=== PATIENT | female | born 1960 | race Caucasian/White ===

== ENCOUNTER → 2017-05-24 08:30 | Outpatient (CLI) | payer MEDICARE, SELFPAY ==
[2017-05-24 12:35] LABS: Cholesterol 191 mg/dL (200); High Density Lipoprotein 50 mg/dL; Triglycerides 166 mg/dL; Very Low Density Lipoprotein 33 mg/dL (5-40)
[2017-05-30 12:08] LABS: Testosterone, % Free 4.41 % (0.50-2.80); Testosterone, Free 3.18 ng/dL (0.10-0.85); Testosterone, Total 72 ng/dL (3-41)
[2017-05-30 16:24] LABS: DHEA Sulfate 271.8 ug/dL (29.4-220.5)
== END ==
PROVIDERS: Family Provider Family Medicine; PCP Family Medicine; Visit Provider Family Medicine
DX: D35.02 Benign neoplasm of left adrenal gland (principal); I25.10 Atherosclerotic heart disease of native coronary artery without angina pectoris
CPT/HCPCS: 36415; 80061; 82627; 84402; 84403; 82626

== ENCOUNTER → 2017-06-19 12:48 | Outpatient (CLI) | payer MEDICARE, SELFPAY ==
--- NOTE | 2017-06-19 12:55 | RAD_ITS ---
STUDY: X-RAY - RIGHT KNEE REASON FOR EXAM: Female, 56 years old. Pain. TECHNIQUE: 4 view(s) of the knee. COMPARISON: 12/30/2008. FINDINGS: Normal visualized distal femur. Normal visualized proximal tibia and fibula. Normal proximal tibiofibular articulation. There is no demonstrated fracture. Normal medial femorotibial compartment. Normal lateral femorotibial compartment. Normal patellofemoral articulation. There is no demonstrated joint effusion. The soft tissue structures are unremarkable. RAD/Knee 4 or More Views IMPRESSION: Normal x-ray examination of the knee. Electronically Signed: Abelardo Bustamante MD at 17:34 EDT , Service support ,
== END ==
LOC: MTRAD 12:51
PROVIDERS: Family Provider Family Medicine; PCP Family Medicine; Visit Provider Family Medicine
DX: M25.561 Pain in right knee (principal)
CPT/HCPCS: 73564

== ENCOUNTER → 2017-08-31 11:24 | Outpatient (CLI) | payer MEDICARE, SELFPAY ==
[2017-08-31 15:59] LABS: Cholesterol 231 mg/dL (200); High Density Lipoprotein 51 mg/dL; Triglycerides 239 mg/dL; Very Low Density Lipoprotein 48 mg/dL (5-40)
[2017-09-04 16:09] LABS: Testosterone, Free 1.24 ng/dL (0.10-0.85); Testosterone, Total 69 ng/dL (3-41)
[2017-09-05 08:30] LABS: DHEA Sulfate 339.5 ug/dL (29.4-220.5)
== END ==
LOC: LAB.FUTURE 11:25
PROVIDERS: Family Provider Family Medicine; PCP Family Medicine; Visit Provider Family Medicine
DX: D35.02 Benign neoplasm of left adrenal gland (principal); I25.10 Atherosclerotic heart disease of native coronary artery without angina pectoris
CPT/HCPCS: 36415; 80061; 82627; 84402; 84403; 82626

== ENCOUNTER → 2018-07-24 11:10 | Outpatient (CLI) | payer MEDICARE, SELFPAY ==
[2018-07-24 12:45] LABS: Absolute Lymphocyte Count 2.87 X10^3/ul (0.83-4.51); Absolute Neutrophil Count 6.3 X10^3/uL (2.0-7.7); Basophil# 0.05 X10^3/uL; Basophil% 0.5 % (0-1); Eosinophil# 0.14 X10^3/uL; Eosinophils% 1.4 % (0-5); Hematocrit 43.3 % (37-47); Hemoglobin 14.5 g/dl (12.0-15.0); Lymphocyte # 2.87 X10^3/ul (4.0); Lymphocyte % 28.7 % (19-41); Mean Corp Hgb Conc 33.5 g/gl (32-36); Mean Corpuscular Hgb 29.8 pg (27.0-32.0); Mean Corpuscular Volume 89.1 fL (81-99); Mean Platelet Vol. 10.2 fl (6.2-12.0); Monocyte# 0.61 X10^3/uL; Monocyte% 6.1 % (0-10); Neutrophil # 6.29 X10^3/uL (2.7-7.7); Platelet Count 257 K/mm3 (150-450); RBC Distribution Width SD 42.2 fl (35.1-43.9); Red Blood Count 4.86 M/mm3 (4.2-5.4)
[2018-07-24 12:47] LABS: POSITIVE COUNT NO; POSITIVE DIFFERENTIAL NO; POSITIVE MORPHOLOGY NO
[2018-07-24 13:07] LABS: ALB/GLOB Ratio 0.8 RATIO (0.9-2.4); AST(SGOT) 13 U/L (15-37); Alanine Aminotransfer ALT/SGPT 17 U/L (13-56); Albumin, Serum 3.2 g/dL (3.2-5.0); Alkaline Phosphatase 88 U/L (45-117); Anion Gap 6 (5-15); BUN 10 mg/dL (7-18); Calcium,Total 8.8 mg/dL (8.5-10.1); Chloride 102 mmol/L (98-107); Cholesterol 188 mg/dL (200); EST Glomerular Filtration Rate 61 mL/min (>60); Est Glom Filt Rate - Afr Amer 74 mL/min (>60); Globulin 3.9 g/dL (2.2-4.2); Glucose 83 mg/dL (74-106); High Density Lipoprotein 48 mg/dL; Potassium 3.6 mmol/L (3.5-5.1); Protein, Total 7.1 g/dL (6.4-8.2); Sodium Level 140 mmol/L (136-145); Triglycerides 210 mg/dL; Very Low Density Lipoprotein 42 mg/dL (5-40)
[2018-07-28 16:06] LABS: Testosterone, % Free 3.06 % (0.50-2.80); Testosterone, Free 0.86 ng/dL (0.10-0.85); Testosterone, Total 28 ng/dL (3-41)
[2018-07-30 11:26] LABS: DHEA Sulfate 162.1 ug/dL (29.4-220.5)
== END ==
PROVIDERS: Family Provider Family Medicine; PCP Family Medicine; Visit Provider Family Medicine
DX: I10 Essential (primary) hypertension (principal); E78.5 Hyperlipidemia, unspecified; L68.0 Hirsutism; Z51.81 Encounter for therapeutic drug level monitoring
CPT/HCPCS: 36415; 80053; 80061; 82627; 84402; 84403; 85025; 82626

== ENCOUNTER → 2018-09-06 17:45 | Outpatient (CLI) | payer MEDICARE, SELFPAY ==
--- NOTE | 2018-09-06 17:46 | CT_ITS ---
STUDY: CT CHEST WITH CONTRAST REASON FOR EXAM: Female, 57 years old. Wheezing, COPD RADIATION DOSAGE (If Supplied By Facility): CTDIvol = ( 18.17 ) mGy, DLP = ( 708.23 ) mGycm TECHNIQUE: Transaxial imaging was performed following intravenous administration of 100 IV Isovue 300. Individualized dose optimization techniques were used for this CT. COMPARISON: None. FINDINGS: The lungs are normal. There is no demonstrated pleural abnormality. Normal heart and pericardium. Normal mediastinum. Normal hilar regions. Normal enhanced pulmonary arteries. Mildly calcified aorta arch and descending thoracic aorta. Degenerative vertebral changes. There is no demonstrated abnormality of the visualized upper abdomen. CT/Chest WITH Contrast IMPRESSION: Normal enhanced CT Chest examination. Electronically Signed: Mp Toure DO at 23:34 EDT Tel [phone], Service support ,
== END ==
LOC: CT 17:47
PROVIDERS: Family Provider Family Medicine; PCP Family Medicine; Referring Provider Family Medicine; Visit Provider Family Medicine
DX: R06.09 Other forms of dyspnea (principal); R06.2 Wheezing; Z72.0 Tobacco use
CPT/HCPCS: 71260; Q9967

== ENCOUNTER → 2018-10-04 07:19 | Outpatient (CLI) | payer MEDICARE, SELFPAY ==
--- NOTE | 2018-10-04 13:12 | PFT ---
INTRODUCTION: The patient is a 58-year-old female that presents for pulmonary function studies secondary to a diagnosis of COPD. Respiratory therapy reports good patient effort. Bronchodilators were used during testing. INTERPRETATION: Forced expiration spirometry demonstrates the presence of a reversible mild large airways obstructive ventilatory defect. Spirograms are of good quality and plateau normally. Body plethysmography was performed and reveals lung volumes to be within normal limits. Diffusing capacity by single breath CO is mildly reduced at 68% of predicted. IMPRESSION: Reversible mild large airways obstructive ventilatory defect with symmetric reduction in diffusing capacity.
== END ==
LOC: PSN 07:20
PROVIDERS: Family Provider Family Medicine; PCP Family Medicine; Referring Provider Family Medicine; Visit Provider Family Medicine
DX: J44.9 Chronic obstructive pulmonary disease, unspecified (principal); R06.2 Wheezing; R06.09 Other forms of dyspnea
CPT/HCPCS: 94060; 94726; 94729

== ENCOUNTER → 2019-03-15 15:15 | Outpatient (CLI) | payer MEDICARE, SELFPAY ==
[2019-03-15 17:07] LABS: Absolute Lymphocyte Count 3.86 X10^3/uL (0.83-4.51); Absolute Neutrophil Count 5.3 X10^3/uL (2.0-7.7); Basophil# 0.09 X10^3/uL; Basophil% 0.9 % (0-1); Eosinophil# 0.17 X10^3/uL; Eosinophils% 1.7 % (0-5); Hematocrit 45.9 % (37-47); Hemoglobin 15.1 g/dL (12.0-15.0); Lymphocyte # 3.86 X10^3/ul (4.0); Lymphocyte % 37.9 % (19-41); Mean Corp Hgb Conc 32.9 g/dL (32-36); Mean Corpuscular Hgb 29.7 pg (27.0-32.0); Mean Corpuscular Volume 90.2 fL (81-99); Mean Platelet Vol. 10.5 fl (6.2-12.0); Monocyte# 0.74 X10^3/uL; Monocyte% 7.3 % (0-10); NRBC Flagged by Analyzer 0 % (0-5); Neutrophil % 51.9 % (47-70); Platelet Count 262 K/mm3 (150-450); RBC Distribution Width CV 13.2 % (11.6-14.6); RBC Distribution Width SD 43.5 fl (35.1-43.9); Red Blood Count 5.09 M/mm3 (4.2-5.4); White Blood Count 10.2 K/mm3 (4.4-11.0)
[2019-03-15 17:14] LABS: Anion Gap -1 (5-15); BUN 9 mg/dL (7-18); BUN/Creat Ratio 8.7 RATIO (10-20); Calcium,Total 9.2 mg/dL (8.5-10.1); Chloride 105 mmol/L (98-107); Creatinine, Serum 1.04 mg/dL (0.55-1.02); EST Glomerular Filtration Rate 58 mL/min (>60); Est Glom Filt Rate - Afr Amer 70 mL/min (>60); Glucose 77 mg/dL (74-106); Potassium 4.2 mmol/L (3.5-5.1); Sodium Level 139 mmol/L (136-145)
== END ==
PROVIDERS: PCP Family Medicine; Visit Provider Family Medicine
DX: K62.5 Hemorrhage of anus and rectum (principal); I10 Essential (primary) hypertension
CPT/HCPCS: 36415; 80048; 85025

== ENCOUNTER 2019-04-15 08:44 | Day surgery (SDC) | payer MEDICARE, SELFPAY ==
--- NOTE | 2019-03-25 03:06 | HP_ITS ---
Intake Vital Signs 03/25/19 BMI 38.9 03/25/19 Height 5 ft 6 in 03/25/19 Weight: 237 lb 03/25/19 BMI 38.2 03/25/19 BP 127/90 H 03/25/19 Blood Pressure Location Rt brachial 03/25/19 Position Sitting 03/25/19 Respiration 18 03/25/19 Pulse 88 03/25/19 Pulse Source Monitor 03/25/19 Temp 98.3 F 03/25/19 Temp Source Oral 03/25/19 Pulse Oximetry (%) 95 03/25/19 Oxygen Delivery Method room air Intake Visit Reasons: COLONOSCOPY/ CHANGE IN BOWEL MOVEMENTS Chief Complaint: rectal bleeding [employer] Required: No Is patient in pain?: No Allergies No Known Allergies Allergy (Verified 03/25/19 15:04) steristrips Adverse Reaction (Intermediate, Uncoded 03/25/19 15:04) blisters [facility] Medical History Family history of coronary artery disease (Chronic) Obesity (Chronic) Nicotine addiction (Chronic) Hyperlipidemia (Chronic) Hypertension (Chronic) Non-ST elevation [place] (NSTEMI) (Acute) Major depression (Chronic) Arthritis (Acute) Depression with anxiety (Acute) GERD (gastroesophageal reflux disease) (Acute) Heart disease (Acute) Hemorrhoids (Acute) History of back problems (Acute) Rectal bleeding (Acute) COPD (chronic obstructive pulmonary disease) (Chronic) Surgical History h/o lap cholecystectomy (Acute) h/o appendectomy (Acute) H/O: hysterectomy (Acute) History of total adrenalectomy (Acute) Family History Mother Diabetes Heart disease Hypertension Father Cancer bladder cancer CAD (coronary artery disease) High cholesterol Social History (Updated 03/25/19 @ 15:06 by Benito Lee MD) Smoking Status: Current every day smoker alcohol intake: current alcohol intake frequency: holidays/special occasions only substance use type: does not use HPI HPI HPI: JAROCHO KELLY, is a 58 F who presents to the office today for HPI HPI Surgical H&P: Yes HPI: JAROCHO KELLY, is a 58 F who presents to the office today for Evaluation for endoscopy. Patient has been noticing some bright red rectal bleeding over the last month. She has noticed an increase in her bowel movements between 2 and 3 times a day and the usually will start off normal and then get to be very liquidy and runny. She is not experiencing any pain with her bowel movements. Patient has never had a colonoscopy for in the past. She has a history of having a hemorrhoid which has not been painful or itching or burning as today. ROS General General: Yes weight change and fatigue; no appetite, colon cancer, breast cancer or weakness HEENT HEENT: No difficulty swallowing, eye injury, eye surgery, swollen glands or hoarseness Endo Endocrine: No thyroid disease, diabetes mellitus, thyroid cancer, Hair loss, heat intolerance or cold intolerance Skin Skin: No rash or changing moles Breast Breast: No left breast lump, right breast lump, nipple discharge, breast pain, abnormal mammogram, abnormal US or breast enlargement Musc Musculoskeletal: Yes back problems and arthritis; no rheumatoid arthritis, gout or joint pain Cardio Cardiovascular: Yes heart disease, high blood pressure and heart attack; no murmur, pacemaker, atrial fibrillation, heart stent, palpitations, shortness of breat with exertion or chest pain Psych Psychiatric: Yes depression and anxiety; no hearing voices Resp Respiratory: Yes shortness of breath, No sleep apnea, No cough, Yes COPD, No asthma, No emphysema, No wheezing Gastro Gastrointestinal: No abdominal pain, Yes nausea or vomiting, Yes diarrhea, Yes constipation, Yes blood in stool, Yes acid reflux, Yes hemorrhoids, No ulcers, No gallbladder problem, No black,tarry stools [place] Hematologic: Yes blood thinners, No blood disorders, No bleeding, No anemia, No blood clots Neuro Neurologic: No system reviewed and no additional complaints, except as docu, No as per HPI, No abnormal walking, No abnormal hearing, No abnormal movements, No abnormal speech, No behavioral changes, No burning sensations, No confusion, No seizure-like activity, No unsteadiness, No dizziness, No localized weakness, No frequent falls, No headache(s), No lack of coordination, No loss of vision, No memory loss, No numbness, No other visual disturbances, No radiating pain, No restless legs, No sensory deficit, No fainting, No tingling, No tremor(s), No weakness, No other Exam Const General: no acute distress, well developed, well hydrated Orientation: oriented to person, oriented to place, oriented to time [facility] Head: normocephalic, atraumatic Ears: external ears normal Mouth: moist mucous membranes Eyes Sclera: sclerae normal Pupils: normal by confrontation Neck Neck: no lymphadenopathy noted Neck mass: No Thyroid: thyroid normal, symmetrical Chest Chest palpation & inspection: normal inspection of the chest Breast Palpation: No nipple discharge Resp Effort & Inspection: normal respiratory effort Auscultation: clear to auscultation bilaterally Percussion: percussion normal Cardio Rate: regular rate Rhythm: regular rhythm Heart Sounds: no murmurs GI Palpation: soft, no hepatosplenomegaly, no masses, nontender Rectal Exam: other Other: Rectal exam deferred. Skin around the anus is slightly excoriated but there are no signs of rectal fissures or thrombosed external hemorrhoids. Extrem General: normal to inspection, no clubbing, cyanosis or edema Assessment & Plan Problems 1. Rectal hemorrhage K62.5 Plan I have discussed the above with the patient. I have offered the patient colonoscopy for evaluation. I have explained the risks/benefits of the procedure and described the procedure. I have discussed the risks with the patient, including but not limited to: infection, bleeding, perforation of the GI tract requiring emergency surgery, inability to complete the procedure, injury to any internal organs, complications of anesthesia, etc. - the patient understands and agrees to proceed. I have answered all the patient's questions to the patient's satisfaction and the patient has no further questions. The patient has been given instructions for the colon cleansing preparation. Coding Level of Care Code Off vis,new,level 3 Diagnoses Rectal hemorrhage K62.5 03/25/19 1506 <Electronically signed by Benito monzon MD> Date _ Benito Lee MD I have re-examined the patient. There are no clinical changes since date of exam.
[2019-03-25 15:06] VITALS: BMI 38.9
[2019-04-15 09:06] VITALS: BP 152/87; PULSE 82; RESP 15; TEMP 36.2; O2SAT 97; BMI 38.4
[2019-04-15] MEDS: Lactated Ringers 1,000 ML 100 ML IV (09:19)
--- NOTE | 2019-04-15 09:45 | COLBX_PTH ---
PATIENT: JAROCHO KELLY LOC: [facility] U#:[id number] AGE/SX: 58/F ROOM: RE04/15/[address]: Dr. Benito Lee MD : 1960 BED: DIS: 04/15/2019 SPEC #: [id number] RECD: 04/15/19 11:58 STATUS: CHASITY RERay #: [id number] MIREYA: 04/15/19 09:[address]: Benito Lee DEPT: SURGICAL PATHOLOGY RECD BY: Zac Delcid ENTERED: 04/15/19 13:57 SP TYPE: COLON BX OTHR DR: Dr. Jamie Milner DO Tissues: A - COLON BIOPSY B - Descending colon C - Descending colon Procedures: Surgery Specimen Level IV HEADER OPERATION: Colonoscopy (MAC) PRE-OP DIAGNOSIS: Rectal bleeding TISSUE SUBMITTED: A - Random colon biopsies, B - Descending colon polyp biopsy #1, C - Descending colon polyp biopsy #2 MICROSCOPIC DIAGNOSIS A. Colon, random biopsy: No pathologic change. B. Descending colon polyp #1, biopsy: Fragments of tubular adenoma. C. Descending colon polyp #2, biopsy: Fragments of tubular adenoma. AM:martha 04/16/19 MICROSCOPIC DESCRIPTION Slides are reviewed. GROSS DESCRIPTION A - Received in fixative is one container labeled with the patient's name and designated random colon biopsy. The specimen consists of multiple irregular fragments of light caputo soft tissue that in aggregate measure 1.2 x 1 x 0.1 cm. The specimen is totally submitted in one cassette. B - Received in fixative is one container labeled with the patient's name and designated descending colon biopsy. The specimen consists of one irregular fragment of light caputo soft tissue that measures 0.3 x 0.2 x 0.1 cm. The specimen is totally submitted in one cassette. C - Received in fixative is one container labeled with the patient's name and designated descending colon biopsy. The specimen consists of two irregular fragments of light caputo soft tissue that in aggregate measure 0.3 x 0.3 x 0.1 cm. The specimen is totally submitted in one cassette. / AM:martha 04/15/19 TC:5 CPT: 15798 x3
[2019-04-15 10:21] VITALS: BP 123/70; BP 152/87; PULSE 72; RESP 16; TEMP 36.9; O2SAT 98
--- NOTE | 2019-04-15 10:22 | OP.CCLET_ITS ---
04/15/2019 Jamie Milner [address] [place] [address] Re : Colonoscopy procedure for Caterina Curry Dear Dr. Milner This procedure was performed on Monday, April 15, 2019. My impressions and recommendations are as follows: Impressions : - One 5 mm polyp in the descending colon, removed with a jumbo cold forceps. Resected and retrieved. - Non-bleeding internal hemorrhoids. - The examination was otherwise normal. - The entire examined colon is normal. Biopsied. Recommendations : - Discharge patient to home. - Resume previous diet. - Continue present medications. - Await pathology results. - Repeat colonoscopy in 5 years for surveillance. - Return to GI office in 1 week. My findings are described in the full procedure note, which is enclosed. If I can be of further assistance, please feel free to contact me at Doctor phone number(s): , Fax: [phone], Work: . Sincerely, MD Benito Lopez MD 04/15/2019 10:22:15 AM This report has been signed electronically.
--- NOTE | 2019-04-15 10:22 | OP.COLON_ITS ---
Patient Name: Caterina Curry Procedure Date: 04/15/2019 9:56 AM Date of : 1960 Age: 58 Procedure: Colonoscopy Indications: Rectal bleeding Providers: Benito Lee MD Referring MD: Jamie Milner Medicines: See the Anesthesia note for documentation of the administered medications Patient Profile: This is a 58 year old female. Refer to note in patient chart for documentation of history and physical. Last Colonoscopy: none. The patient's first colonoscopy is today. Complications: No immediate complications. Procedure: Pre-Anesthesia Assessment: - Prior to the procedure, a History and Physical was performed, and patient medications and allergies were reviewed. The patient's tolerance of previous anesthesia was also reviewed. The risks and benefits of the procedure and the sedation options and risks were discussed with the patient. All questions were answered, and informed consent was obtained. Prior Anticoagulants: The patient has taken no previous anticoagulant or antiplatelet agents. ASA Grade Assessment: II - A patient with mild systemic disease. After reviewing the risks and benefits, the patient was deemed in satisfactory condition to undergo the procedure. After I obtained informed consent, the scope was passed under direct vision. Throughout the procedure, the patient's blood pressure, pulse, and oxygen saturations were monitored continuously. The adult colonoscope was introduced through the anus and advanced to the cecum, identified by appendiceal orifice and ileocecal valve. The colonoscopy was performed without difficulty. The patient tolerated the procedure well. The quality of the bowel preparation was good. Scope In: 10:04:56 AM Scope Withdrawal Time 0 hours 7 minutes 19 seconds Scope Out: 10:17:01 AM Total Procedure Duration Time 0 hours 12 minutes 5 seconds Findings: A 5 mm polyp was found in the descending colon. The polyp was sessile. The polyp was removed with a jumbo cold forceps. Resection and retrieval were complete. Non-bleeding internal hemorrhoids were found during retroflexion. The hemorrhoids were mild and small. The exam was otherwise without abnormality. The entire examined colon appeared normal. Biopsies for histology were taken with a cold forceps from the entire colon for evaluation of microscopic colitis. Impression: - One 5 mm polyp in the descending colon, removed with a jumbo cold forceps. Resected and retrieved. - Non-bleeding internal hemorrhoids. - The examination was otherwise normal. - The entire examined colon is normal. Biopsied. Recommendation: - Discharge patient to home. - Resume previous diet. - Continue present medications. - Await pathology results. - Repeat colonoscopy in 5 years for surveillance. - Return to GI office in 1 week. Procedure Code(s): --- Professional --- 57034, Colonoscopy, flexible; with biopsy, single or multiple Diagnosis Code(s): --- Professional --- D12.4, Benign neoplasm of descending colon K64.8, Other hemorrhoids K62.5, Hemorrhage of anus and rectum CPT copyright 2017 [employer] [place] [employer]. All rights reserved. The codes documented in this report are preliminary and upon tile grader review may be revised to meet current compliance requirements. MD Benito Lopez MD 04/15/2019 10:22:15 AM This report has been signed electronically. Number of Addenda: 0 Note Initiated On: 04/15/2019 9:56 AM
[2019-04-15 10:25] VITALS: BP 125/75; BP 152/87; PULSE 75; RESP 16; O2SAT 97
[2019-04-15 10:30] VITALS: BP 122/81; BP 152/87; PULSE 75; RESP 16; O2SAT 96
[2019-04-15 10:35] VITALS: BP 128/73; BP 152/87; PULSE 71; RESP 16; TEMP 36.3; O2SAT 97
[2019-04-15 11:12] VITALS: BP 152/87
== END 2019-04-15 11:13 | disposition home or self-care (01) ==
LOC: EN 08:44 → AC 08:46
PROVIDERS: PCP Family Medicine; Referring Provider Family Medicine; Visit Provider Surgery
PROC: 0DJD8ZZ Inspection of Lower Intestinal Tract, Via Natural or Artificial Opening Endoscopic (ICD-10-PCS; CPT 45378; principal; 2019-04-15 09:40)
DX: D12.4 Benign neoplasm of descending colon (principal); K64.8 Other hemorrhoids; K62.5 Hemorrhage of anus and rectum; K21.9 Gastro-esophageal reflux disease without esophagitis; I25.2 Old myocardial infarction; I10 Essential (primary) hypertension; J44.9 Chronic obstructive pulmonary disease, unspecified; E78.00 Pure hypercholesterolemia, unspecified; F32.9 Major depressive disorder, single episode, unspecified; F41.9 Anxiety disorder, unspecified; E66.9 Obesity, unspecified; Z68.38 Body mass index [BMI] 38.0-38.9, adult; F17.200 Nicotine dependence, unspecified, uncomplicated
CPT/HCPCS: 45380; 88305; J7120; J1610; J2405

== ENCOUNTER 2019-12-26 11:28 | Emergency (ER) | payer MEDICARE, SELFPAY ==
[2019-12-26 11:29] VITALS: BP 140/73; PULSE 106; RESP 19; TEMP 36.3; O2SAT 99; BMI 36.8
--- NOTE | 2019-12-26 11:40 | RAD_ITS ---
STUDY: X-RAY CHEST REASON FOR EXAM: Female, 59 years old. C/O COUGH, SOB, NAUSEA, CHEST WALL PAIN, HEADACHE, AND BODY ACHES WITH SYMPTOMS STARTING LAST NIGHT TECHNIQUE: Single AP portable view of the chest. COMPARISON: 10/11/2016 FINDINGS: The lungs are clear and expanded. There is no demonstrated pleural abnormality. Normal size heart. Normal mediastinum and javy. Normal visualized pulmonary arteries. Normal visualized aortic arch and descending thoracic aorta. Normal visualized thoracic spine. Normal visualized ribs, clavicles, and shoulders. There is no demonstrated abnormality of the visualized soft tissue structures of the upper abdomen. RAD/Chest 1 View (Portable) IMPRESSION: Normal x-ray examination of the chest. Electronically Signed: Burt Carreon MD at 12:19 EST Tel , Service support ,
--- NOTE | 2019-12-26 11:43 | ED.DCSUM_ITS ---
- ER Visit Summary Date of Service: 12/26/19 Chief Complaint: [Cough and fever and shortness of breath] History of Present Illness: The patient is a 59 F [presents to the emergency department with symptoms that started 2 days ago. Patient states that she had a temp up to 102 last night. Patient had chills and sweats. She complains of headache and body aches. Cough is nonproductive. She denies any abdominal pain. Patient does have urinary frequency but denies dysuria. Patient denies exposures to any COVID-19 individuals.] Patient has history of diabetes, hypertension, depression, and coronary artery disease. She did not get the flu vaccine yet this year. Physical Examination: [HEENT-PERRLA, EOMI. Cranial nerves II through XII grossly intact. TMs clear. Mucous membranes moist. No adenopathy. Cardiovascular-regular rate and rhythm without murmur or ectopy Lungs-clear to auscultation, chest wall stable without crepitus or subcu emphysema Abdomen-normoactive bowel sounds, soft, nontender, no rebound or rigidity, no peritoneal signs. Extremities-intact ?4, normal range of motion, normal pulses, atraumatic] Test Results: [CBC with differential obtained showed a white count of 15.8, hemoglobin 13.9, hematocrit 42, plates 159. Demonstrates unremarkable. BUN 17 and creatinine 1.55. Urinalysis was positive for 500 excite esterase and positive for nitrites. Patient had greater than 100 WBCs and +4 bacteria. Urine culture was sent. Chest x-ray was normal. COVID-19 test ordered and will be pending as it is a send out.] Emergency Department Course and Treatment: [Patient was started on Rocephin 1 g IV. Patient was given normal saline.] Treatment Plan: [We will be treated with Bactrim and Pyridium. She is advised to follow-up with vomiting, dehydration, increasing shortness of breath, or condition should worsen anyway. Patient self quarantine till she gets her COVID-19 test results back.] Disposition: [Discharged home in stable condition] Impression: [UTI Viral URI-rule out COVID-19] This note was generated with Studio [employer] software. It may contain incorrect words, spelling, and punctuation that were not noted in review of the chart prior to signing ED Disposition - Plan for ED Patient: Referrals: Jamie Milner DO [Primary Care Provider] -
[2019-12-26 11:56] VITALS: BP 159/63; PULSE 102; RESP 24; O2SAT 96
[2019-12-26 12:03] VITALS: BP 168/62; PULSE 99; RESP 24; TEMP 36.3; O2SAT 96
[2019-12-26] MEDS: 0.9% Normal Saline 1,000 ML 150 ML IV (12:05)
[2019-12-26 12:06] LABS: Absolute Lymphocyte Count 0.79 X10^3/uL (0.83-4.51); Basophil# 0.05 X10^3/uL; Basophil% 0.3 % (0-1); Eosinophil# 0.49 X10^3/uL; Eosinophils% 3.1 % (0-5); Hematocrit 41.6 % (37-47); Hemoglobin 13.9 g/dL (12.0-15.0); Lymphocyte # 0.79 X10^3/ul (4.0); Mean Corp Hgb Conc 33.4 g/dL (32-36); Mean Corpuscular Hgb 30.4 pg (27.0-32.0); Mean Platelet Vol. 10.6 fl (6.2-12.0); Monocyte# 1.33 X10^3/uL; Monocyte% 8.4 % (0-10); NRBC Flagged by Analyzer 0 % (0-5); Neutrophil # 13.01 X10^3/uL (2.7-7.7); Neutrophil % 82.3 % (47-70); Platelet Count 159 K/mm3 (150-450); RBC Distribution Width CV 13.6 % (11.6-14.6); RBC Distribution Width SD 45.8 fl (35.1-43.9); Red Blood Count 4.57 M/mm3 (4.2-5.4); White Blood Count 15.8 K/mm3 (4.4-11.0)
[2019-12-26 12:20] LABS: Anion Gap 4 (5-15); BUN 17 mg/dL (7-18); Chloride 100 mmol/L (98-107); Creatinine, Serum 1.55 mg/dL (0.55-1.02); EST Glomerular Filtration Rate 37 mL/min (>60); Est Glom Filt Rate - Afr Amer 44 mL/min (>60); Estimated Creatinine Clearance 37.04 ml/min; Glucose 124 mg/dL (74-106); Potassium 3.5 mmol/L (3.5-5.1); Sodium Level 134 mmol/L (136-145)
[2019-12-26 12:29] LABS: Mucous, Urine 0 SEEN /hpf (<or=2+)
[2019-12-26 12:36] LABS: Color, Urine Amber (Yellow); Glucose, Dipstick Normal (Normal); Ketone-Dipstick 15 mg/dl (Negative); Leukocyte Esterase-Dipstick 500 /ul (Negative); Nitrite-Dipstick Positive (Negative); Occult Blood-Urine 250 /ul (Negative); Protein-Dipstick 100 mg/dl (Negative); Specific Gravity, Urine 1.015 (1.002-1.030); Urine Clarity Cloudy (Clear); Urine Urobilinogen 4 mg/dl (Normal)
[2019-12-26 12:38] LABS: Urine Bilirubin Dipstick 1 mg/dL (Negative)
[2019-12-26 12:45] LABS: White Blood Cells >100 SEEN /hpf (0-5)
[2019-12-26 12:46] LABS: Bacteria 4+ /hpf (None Seen); Red Blood Cells-Urine 0-5 SEEN /hpf (0-5); Squamous Epithelial Cells - UA 0-5 SEEN /hpf (5-10)
[2019-12-26 13:00] VITALS: BP 162/70; PULSE 91; RESP 16; TEMP 38.3; O2SAT 97
--- NOTE | 2019-12-26 13:26 | ED.DEP ---
ED Disposition - Plan for ED Patient: Instructions: ED URI Viral, ED CYSTITIS Female Adult Prescriptions: Smz/Tmp Ds [Bactrim Ds] 1 tab PO BID #14 tab Prescription Printed Phenazopyridine HCl [Pyridium] 200 mg PO BID PRN PRN #10 tab PRN Reason: Pain Prescription Printed Referrals: Jamie Milner DO [Primary Care Provider] - 3-5 Days
[2019-12-26] MEDS: Ceftriaxone 1 GM/50 ML BAG IV (13:37)
[2019-12-26] MEDS: Acetaminophen 500 MG Tablet 1000 MG PO (14:05)
[2019-12-26 14:46] VITALS: BP 155/68; PULSE 88; PULSE 90; RESP 17; RESP 20; TEMP 37.7; O2SAT 97
== END 2019-12-26 14:50 | disposition home or self-care (01) ==
LOC: ED 12:27
PROVIDERS: Emergency Provider Emergency Medicine; PCP Family Medicine
DX: N39.0 Urinary tract infection, site not specified (principal); J06.9 Acute upper respiratory infection, unspecified; I25.10 Atherosclerotic heart disease of native coronary artery without angina pectoris; I10 Essential (primary) hypertension; E11.9 Type 2 diabetes mellitus without complications; F32.9 Major depressive disorder, single episode, unspecified; Z72.0 Tobacco use; Z79.82 Long term (current) use of aspirin; Z79.899 Other long term (current) drug therapy; Z79.02 Long term (current) use of antithrombotics/antiplatelets
CPT/HCPCS: 71045; 80048; 81001; 85025; 87086; 87088; 87186; 87635; 87804; 96365; 99283; U0003

== ENCOUNTER → 2020-04-14 14:56 | Outpatient (CLI) | payer OTHER, SELFPAY ==
[2020-04-14 17:01] LABS: Absolute Lymphocyte Count 3.47 X10^3/uL (0.83-4.51); Absolute Neutrophil Count 4.8 X10^3/uL (2.0-7.7); Basophil# 0.09 X10^3/uL; Eosinophil# 0.16 X10^3/uL; Eosinophils% 1.7 % (0-5); Hematocrit 42.7 % (37-47); Hemoglobin 13.8 g/dL (12.0-15.0); Lymphocyte # 3.47 X10^3/ul (4.0); Lymphocyte % 37.8 % (19-41); Mean Corp Hgb Conc 32.3 g/dL (32-36); Mean Corpuscular Hgb 29.7 pg (27.0-32.0); Mean Platelet Vol. 10.2 fl (6.2-12.0); Monocyte# 0.65 X10^3/uL; Monocyte% 7.1 % (0-10); NRBC Flagged by Analyzer 0 % (0-5); Neutrophil % 52.2 % (47-70); Platelet Count 274 K/mm3 (150-450); RBC Distribution Width CV 13.9 % (11.6-14.6); RBC Distribution Width SD 47.2 fl (35.1-43.9); Red Blood Count 4.64 M/mm3 (4.2-5.4); White Blood Count 9.2 K/mm3 (4.4-11.0)
[2020-04-14 17:21] LABS: ALB/GLOB Ratio 0.9 RATIO (0.9-2.4); AST(SGOT) 19 U/L (15-37); Alanine Aminotransfer ALT/SGPT 29 U/L (13-56); Albumin, Serum 3.7 g/dL (3.2-5.0); Alkaline Phosphatase 90 U/L (45-117); Anion Gap 6 (5-15); BUN 15 mg/dL (7-18); BUN/Creat Ratio 12.2 RATIO (10-20); Calcium,Total 9.4 mg/dL (8.5-10.1); Chloride 103 mmol/L (98-107); Creatinine, Serum 1.23 mg/dL (0.55-1.02); EST Glomerular Filtration Rate 48 mL/min (>60); Est Glom Filt Rate - Afr Amer 58 mL/min (>60); Globulin 3.9 g/dL (2.2-4.2); Glucose 68 mg/dL (74-106); Potassium 3.9 mmol/L (3.5-5.1); Protein, Total 7.6 g/dL (6.4-8.2); Sodium Level 140 mmol/L (136-145); T4 Free Direct 1.01 ng/dL (0.76-1.46); Thyroid Stim Hormone (TSH) 1.63 uIU/mL (0.358-3.74)
[2020-04-19 03:01] LABS: Banana <0.10 kU/L (Class 0); Celery <0.10 kU/L (Class 0); Cheddar Cheese <0.10 kU/L (Class 0); Lettuce <0.10 kU/L (Class 0); Peach <0.10 kU/L (Class 0)
[2020-04-19 07:42] LABS: Lactalbumin, Alpha <0.10 kU/L (Class 0); Turkey <0.10 kU/L (Class 0)
[2020-04-19 09:36] LABS: Almond <0.10 kU/L (Class 0); Barley, Whole Grain <0.10 kU/L (Class 0); Beef <0.10 kU/L (Class 0); Carrot <0.10 kU/L (Class 0); Casein <0.10 kU/L (Class 0); Cashew <0.10 kU/L (Class 0); Chicken <0.10 kU/L (Class 0); Chocolate <0.10 kU/L (Class 0); Clam <0.10 kU/L (Class 0); Codfish <0.10 kU/L (Class 0); Corn <0.10 kU/L (Class 0); Crab <0.10 kU/L (Class 0); Egg, White <0.10 kU/L (Class 0); Egg, Whole <0.10 kU/L (Class 0); Egg, Yolk <0.10 kU/L (Class 0); Garlic <0.10 kU/L (Class 0); Gluten <0.10 kU/L (Class 0); Hazelnut/Filbert <0.10 kU/L (Class 0); Lobster <0.10 kU/L (Class 0); Milk (Cow) <0.10 kU/L (Class 0); Oat <0.10 kU/L (Class 0); Onion <0.10 kU/L (Class 0); Orange <0.10 kU/L (Class 0); Pea <0.10 kU/L (Class 0); Pecan <0.10 kU/L (Class 0); Pork <0.10 kU/L (Class 0); Potato, White <0.10 kU/L (Class 0); Rice <0.10 kU/L (Class 0); Rye <0.10 kU/L (Class 0); Salmon <0.10 kU/L (Class 0); Shrimp <0.10 kU/L (Class 0); Soybean <0.10 kU/L (Class 0); Strawberry <0.10 kU/L (Class 0); Tomato <0.10 kU/L (Class 0); Tuna <0.10 kU/L (Class 0); Walnut, (Food) <0.10 kU/L (Class 0); Wheat <0.10 kU/L (Class 0); Yeast <0.10 kU/L (Class 0)
[2020-04-20 12:09] LABS: Apple <0.10 kU/L (Class 0); Peanut <0.10 kU/L (Class 0)
== END ==
PROVIDERS: PCP Family Medicine; Visit Provider Family Medicine
DX: L50.9 Urticaria, unspecified (principal); R53.83 Other fatigue
CPT/HCPCS: 36415; 80053; 84439; 84443; 85025; 86003

== ENCOUNTER → 2021-06-25 | Outpatient (CLI) | payer OTHER, SELFPAY | END | disposition home or self-care (01) | PROVIDERS: PCP Family Medicine; Visit Provider Family Medicine | DX: R39.15 Urgency of urination (principal) | CPT/HCPCS: 87077; 87086; 87088 ==

== ENCOUNTER 2021-08-05 07:26 | Emergency (ER) | payer MEDICARE, SELFPAY ==
[2021-08-05] VITALS (7 sets, daily range): BP systolic 130–162; BP diastolic 68–103; PULSE 80–102; RESP 16–20; TEMP 36.6–36.7; O2SAT 93–98; BMI 38.7
--- NOTE | 2021-08-05 07:48 | RAD_ITS ---
STUDY: X-RAY CHEST REASON FOR EXAM: Female, 60 years old. Chest pain TECHNIQUE: Single AP portable view of the chest. COMPARISON: Comparison is made with prior study dated 12/26/2019. FINDINGS: EKG electrodes are seen. The lungs are clear and expanded. There is no demonstrated pleural abnormality. Normal size heart. Normal mediastinum and javy. Normal visualized pulmonary arteries. There is atherosclerotic calcification of the aortic arch with tortuosity. There are diffuse degenerative changes of the visualized thoracic spine. Normal visualized ribs, clavicles, and shoulders. There is no demonstrated abnormality of the visualized soft tissue structures of the upper abdomen. RAD/Chest 1 View (Portable) IMPRESSION: No acute abnormality is seen. Electronically Signed: Sher Morales MD at 8:25 EDT ,
--- NOTE | 2021-08-05 07:48 | EKG12_ITS ---
Test Reason : CHEST HEAVINESS Blood Pressure : / mmHG Vent. Rate : 087 BPM Atrial Rate : 087 BPM P-R Int : 190 ms QRS Dur : 086 ms QT Int : 350 ms P-R-T Axes : 067 049 070 degrees QTc Int : 421 ms Normal sinus rhythm Normal ECG Confirmed by STALIN MARKHAM, JERZY ([id number]), writer editor RAJWINDER LIMA ([id number]) on 08/10/2021 10:19:30 AM Referred By: VIKI Confirmed By:JERZY GANT MD
--- NOTE | 2021-08-05 07:50 | EX.ED.DYSGE1 ---
HPI History of Present Illness Chief Complaint: General Illness Informant: patient Onset/Context/Timing Onset: Days (2) Associated Symptoms Associated Symptoms ED: cough Narrative Narrative: 60-year-old female presents with 2 days of generalized weakness/fatigue, chills but no fevers, chest heaviness substernal without radiation, and a little more shortness of breath than usual because I have been smoking a lot more than usual. She denies any cough more than usual. Poor appetite. No abdominal pain, some occasional nausea but no vomiting, diarrhea, bright red blood per rectum, melena. No urinary symptoms. No leg swelling or pain. Some myalgias more in her back. States she recently had a family member and then she had custody of her granddaughter who was recently reclaimed by her daughter and that is making her stressed as well. She does have a history of heart disease and is on aspirin and clopidogrel. [facility] Medical History (Updated 08/05/21 @ 10:[address] Osmin Santoro MD) Arthritis COPD (chronic obstructive pulmonary disease) Depression with anxiety Family history of coronary artery disease GERD (gastroesophageal reflux disease) Heart disease Hemorrhoids History of back problems Hyperlipidemia Hypertension Major depression Nicotine addiction Non-ST elevation LA (NSTEMI) Obesity Rectal bleeding Home Medications bupropion HCl 200 mg tablet,12 hr sustained-release 200 mg PO BID 11/06/15 [History Last Taken 11/06/15] docusate sodium 50 mg capsule 50 mg PO DAILY 11/06/15 [History Last Taken 11/06/15] aspirin 81 mg tablet,delayed release 81 mg PO DAILY@0800 11/09/15 [Rx Last Taken 04/15/19 09:05 81 MG] metoprolol tartrate 25 mg tablet 25 mg PO BID #60 tabs 11/09/15 [Rx Last Taken Unknown] nitroglycerin 0.4 mg sublingual tablet 0.4 mg sublingual Q5M PRN chest pain ##1 11/09/15 [Rx Last Taken Unknown] albuterol sulfate 90 mcg/actuation aerosol inhaler 1 - 2 puff inhalation Q4H PRN PRN Wheezing ##1 10/11/16 [Rx Last Taken Unknown] alprazolam 0.5 mg tablet 0.5 mg PO PRN PRN Anxiety 10/11/16 [History Last Taken Unknown] citalopram 40 mg tablet 40 mg PO QDAY 07/06/17 [History Last Taken Unknown] clopidogrel 75 mg tablet (Plavix) 75 mg PO QDAY 07/06/17 [History Last Taken 04/08/19] rosuvastatin 10 mg tablet 20 mg PO QDAY 07/06/17 [History Last Taken Unknown] losartan 100 mg-hydrochlorothiazide 25 mg tablet 1 tab PO DAILY 03/25/19 [History Last Taken Unknown] lansoprazole 30 mg capsule,delayed release 30 mg PO DAILY 04/12/19 [History Last Taken Unknown] phenazopyridine 200 mg tablet 200 mg PO BID PRN PRN Pain #10 tabs 12/26/19 [Rx Last Taken Unknown] sulfamethoxazole 800 mg-trimethoprim 160 mg tablet 1 tab PO BID #14 tabs 12/26/19 [Rx Last Taken Unknown] albuterol sulfate 90 mcg/actuation aerosol inhaler (Ventolin HFA) 2 puff inhalation Q4H PRN PRN Wheezing ##1 08/05/21 [Rx Last Taken Unknown] Allergy/AdvReac Type Severity Reaction Status Date / Time steristrips AdvReac Intermediate blisters Uncoded 08/05/21 07:30 Family History Mother Diabetes Heart disease Hypertension Father Cancer bladder cancer CAD (coronary artery disease) High cholesterol Surgical History h/o appendectomy h/o lap cholecystectomy H/O: hysterectomy History of total adrenalectomy Social History Smoking Status: Current every day smoker tobacco type: cigarettes alcohol intake: current alcohol intake frequency: holidays/special occasions only substance use type: does not use ROS ROS ED Constitutional Constitutional ED: Reports body ache(s), chills, fatigue and malaise; Denies fever(s) or headache(s) Eyes Eyes: Denies change in vision or diplopia ENT ENT ED: Denies rhinorrhea or sore throat Cardiovascular Cardiovascular: Reports chest pain; Denies orthopnea or palpitations Respiratory/Chest Respiratory/Chest: Reports dyspnea; Denies cough or orthopnea Gastrointestinal Gastrointestinal: Reports nausea; Denies abdominal pain, diarrhea or vomiting Genitourinary Genitourinary ED: Denies dysuria or hematuria Musculoskeletal Musculoskeletal: Reports back pain and myalgias; Denies neck pain Integumentary Denies abscess or rash Neurologic Neurologic: Denies headache(s), paresthesias or weakness Psychiatric Psychiatric: Reports anxiety; Denies suicidal thoughts EXAM Physical Exam Const Vital Signs: 08/05/21 07:27 08/05/21 07:30 08/05/21 07:40 Temperature 98 F 98.0 F Temperature Source Temporal Temporal Pulse Rate 102 H 98 Respiratory Rate 18 18 Respiratory Effort Short of Breath Respiratory Pattern Normal Blood Pressure 162/87 H 132/103 H Blood Pressure Mean 112 112 Pulse Ox 97 96 Oxygen Delivery Method Room Air Room Air 08/05/21 07:57 08/05/21 08:23 08/05/21 08:39 Temperature Temperature Source Pulse Rate 91 85 Respiratory Rate Respiratory Effort Respiratory Pattern Blood Pressure 135/83 H 132/86 H Blood Pressure Mean Pulse Ox 96 Oxygen Delivery Method Room Air 08/05/21 09:28 Temperature Temperature Source Pulse Rate 80 Respiratory Rate 20 H Respiratory Effort Respiratory Pattern Blood Pressure 130/77 H Blood Pressure Mean 94 Pulse Ox 93 Oxygen Delivery Method Room Air Positive well nourished, well developed and obese Constitutional Narrative: Malaised-appearing, no distress General Appearance ED: well developed and NAD Nutritional Appearance: obese HEENT Reports moist mucous membranes normocephalic and atraumatic Eyes PERRL and EOMs intact bilaterally Neck full ROM, supple and no JVD Resp normal respiratory effort and clear to auscultation bilaterally Cardio regular rate, regular rhythm and no murmurs Cardio Narrative: Borderline tachycardia GI non-tender and non-distended Auscultation: normoactive bowel sounds Palpation: soft Back/Spine no CVA tenderness General Back: other FROM Extremity normal to inspection and no calf tenderness General Extremety ED: Negative for edema, pulses abnormal or tenderness General Extremity: Negative for edema or pulses abnormal Neuro oriented x3, CN's II-XII intact bilaterally and no sensory deficits noted Sensorium / Orientation: awake and alert Motor Exam: strength 5/5 throughout Skin no rashes or lesions noted and no wounds MDM MDM MDM Narrative Medical decision making narrative: Cardiac, infectious testing was undertaken, including chest x-ray, influenza, and COVID, however --patient adamantly refuses COVID testing although she is okay with influenza swab, 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 She states that it has to do with the government, and I do not trust them and I do not trust the whole COVID thing so no testing whatsoever for me. I advised her that she has a low white blood count which in absence of an alternative reason for her symptoms, is consistent with COVID, she understands and still does not want tested. Plan is to do a delta troponin to rule out acute coronary syndrome to the best of my ability, so she will be observed for another hour or so until we can do a 2-hour repeat level. Her initial 1 is negative, her EKG is normal, and her chest x-ray 1 view my interpretation is normal. Patient's repeat troponin came back even lower than the initial 1, and single digits. She was given nitroglycerin which actually did resolve her chest discomfort, but this is not diagnostic and could be the case with esophageal etiologies of discomfort as well. As I discussed thoroughly with the patient, she does not fact have symptoms of COVID and refuses to be tested for it, she understands that she may have it. I feel she is safe to be discharged with a blood pressure 130/77 and otherwise normal vital signs, but since I am not able to rule out COVID, I recommend that she quarantine at home until she follows up with her Dr., At which point she must be wearing a tight fitting N95 mask, she understands this. Lab Data Attestation: I reviewed the patient's lab results. Labs: Laboratory Results - last 24 hr 08/05/21 08/05/21 08/05/21 07:40 07:40 08:25 WBC 5.6 RBC 5.21 Hgb 15.3 H Hct 45.8 MCV 87.9 MCH 29.4 MCHC 33.4 RDW Std Deviation 43.2 RDW Coeff of Axel 13.3 Plt Count 201 MPV 10.1 Immature Gran % (Auto) 0.700 Neut % (Auto) 74.2 H Lymph % (Auto) 12.3 L [place] % (Auto) 11.4 H Eos % (Auto) 0.5 Baso % (Auto) 0.9 Absolute Neuts (auto) 4.2 Absolute Lymphs (auto) 0.69 L Nucleated RBC % 0 Sodium 137 Potassium 3.9 Chloride 104 Carbon Dioxide 28.0 Anion Gap 5 BUN 10 Creatinine 1.31 H Estim Creat Clear Calc 43.29 Est GFR (MDRD) Af Amer 53 L Est GFR (MDRD) Non-Af 44 L BUN/Creatinine Ratio 7.6 L Glucose 91 Calcium 9.1 Troponin I High Sens 8 Urine Color Yellow Urine Clarity Sl. Cloudy Urine pH 6.0 Ur Specific [place] 1.015 Urine Protein 15 H Urine Glucose (UA) Normal Urine Ketones Negative Urine Occult Blood 25 H Urine Nitrite Negative Urine Bilirubin Negative Urine Urobilinogen Normal Ur Leukocyte Esterase 25 H Urine RBC 0-5 SEEN Urine WBC 0-5 SEEN Ur Squamous Epith Cells 0-5 SEEN Urine Bacteria 1+ Urine Mucus 0 SEEN 08/05/21 10:10 WBC RBC Hgb Hct MCV MCH MCHC RDW Std Deviation RDW Coeff of Axel Plt Count MPV Immature Gran % (Auto) Neut % (Auto) Lymph % (Auto) [place] % (Auto) Eos % (Auto) Baso % (Auto) Absolute Neuts (auto) Absolute Lymphs (auto) Nucleated RBC % Sodium Potassium Chloride Carbon Dioxide Anion Gap BUN Creatinine Estim Creat Clear Calc Est GFR (MDRD) Af Amer Est GFR (MDRD) Non-Af BUN/Creatinine Ratio Glucose Calcium Troponin I High Sens 5 Urine Color Urine Clarity Urine pH Ur Specific [place] Urine Protein Urine Glucose (UA) Urine Ketones Urine Occult Blood Urine Nitrite Urine Bilirubin Urine Urobilinogen Ur Leukocyte Esterase Urine RBC Urine WBC Ur Squamous Epith Cells Urine Bacteria Urine Mucus Radiography Diagnostic Testing: Clinical Impression(s) from Imaging Studies Chest X-Ray 08/05/21 07:48 IMPRESSION: No acute abnormality is seen. Electronically Signed: Sher Morales MD at 8:25 EDT , Rhythm Strip Rhythm Strip: Sinus Rhythm Rate: 85 Ectopy: None EKG Initial EKG: Attestation: I personally reviewed and interpreted this EKG as follows: Interpretation: Sinus Rhythm and No Acute Injury Pattern Comments: normal EKG Discharge Plan Triage Chief Complaint: General Illness ED Provider: Osmin Santoro Dx/Rx/DC Orders Clinical Impression: Chest heaviness, Acute viral syndrome, Suspected COVID-19 virus infection Instructions: Coronavirus Disease 2019 (COVID-19): Overview, ED Chest Pain, Uncertain Cause Prescriptions: New albuterol sulfate [Ventolin HFA] 90 mcg/actuation HFA aerosol inhaler 2 puff inhalation Q4H PRN PRN (Reason: Wheezing) Qty: 1 0RF No Action citalopram 40 mg tablet 40 mg PO QDAY clopidogrel [Plavix] 75 mg tablet 75 mg PO QDAY rosuvastatin 10 mg tablet 20 mg PO QDAY losartan-hydrochlorothiazide 100-25 mg tablet 1 tab PO DAILY docusate sodium 50 MG capsule 50 mg PO DAILY Label Comments: STOOL SOFTENER bupropion HCl 200 MG tablet extended release 12 hr 200 mg PO BID Label Comments: MENTAL HEALTH aspirin 81 MG tablet 81 mg PO DAILY@0800 0RF Label Comments: heart health nitroglycerin 0.4 MG tablet 0.4 mg SUBLINGUAL Q5M PRN (Reason: chest pain) Qty: 1 0RF Label Comments: chest pain Rx Instructions: as directed metoprolol tartrate 25 MG tablet 25 mg PO BID Qty: 60 0RF Label Comments: blood pressure alprazolam 0.5 MG tablet 0.5 mg PO PRN PRN (Reason: Anxiety) Label Comments: albuterol sulfate 1 INHALER inhaler 1 - 2 puff INHALATION Q4H PRN PRN (Reason: Wheezing) Qty: 1 0RF lansoprazole 30 MG capsule 30 mg PO DAILY sulfamethoxazole-trimethoprim 1 TABLET tablet 1 tab PO BID Qty: 14 0RF phenazopyridine 200 MG tablet 200 mg PO BID PRN PRN (Reason: Pain) Qty: 10 0RF Primary Care Provider: Jamie Milner Referrals: Jamie Milner, DO [Primary Care Provider] - 1 Week if not improving Activity Restrictions/Additional Instructions: If you indeed have COVID, you will want to try to get a home portable pulse oximeter and closely watch your oxygen levels periodically. If you stay below 90% for more than a minute or so, and/or you are feeling like your breathing is getting worse, return to the emergency department for further evaluation. Disposition Disposition: Home, Self Care
[2021-08-05 08:02] LABS: Absolute Lymphocyte Count 0.69 X10^3/uL (0.83-4.51); Absolute Neutrophil Count 4.2 X10^3/uL (2.0-7.7); Basophil# 0.05 X10^3/uL; Basophil% 0.9 % (0-1); Eosinophil# 0.03 X10^3/uL; Eosinophils% 0.5 % (0-5); Hematocrit 45.8 % (37-47); Hemoglobin 15.3 g/dL (12.0-15.0); Lymphocyte # 0.69 X10^3/ul (0.83-4.51); Lymphocyte % 12.3 % (19-41); Mean Corp Hgb Conc 33.4 g/dL (32-36); Mean Corpuscular Hgb 29.4 pg (27.0-32.0); Mean Corpuscular Volume 87.9 fL (81-99); Mean Platelet Vol. 10.1 fl (6.2-12.0); Monocyte# 0.64 X10^3/uL; Monocyte% 11.4 % (0-10); NRBC Flagged by Analyzer 0 % (0-5); Neutrophil # 4.18 X10^3/uL (2.7-7.7); Neutrophil % 74.2 % (47-70); Platelet Count 201 K/mm3 (150-450); RBC Distribution Width CV 13.3 % (11.6-14.6); RBC Distribution Width SD 43.2 fl (35.1-43.9); Red Blood Count 5.21 M/mm3 (4.2-5.4); White Blood Count 5.6 K/mm3 (4.4-11.0)
[2021-08-05 08:21] LABS: Anion Gap 5 (5-15); BUN 10 mg/dL (7-18); BUN/Creat Ratio 7.6 RATIO (10-20); Calcium,Total 9.1 mg/dL (8.5-10.1); Chloride 104 mmol/L (98-107); Creatinine, Serum 1.31 mg/dL (0.55-1.02); EST Glomerular Filtration Rate 44 mL/min (>60); Est Glom Filt Rate - Afr Amer 53 mL/min (>60); Estimated Creatinine Clearance 43.29 ml/min; Glucose 91 mg/dL (74-106); Potassium 3.9 mmol/L (3.5-5.1); Sodium Level 137 mmol/L (136-145); Troponin-I HS (w/2H Reflex) 8 pg/mL (3.0-54.0)
[2021-08-05] MEDS: 0.9% Normal Saline 1,000 ML 150 ML IV (08:22)
[2021-08-05] MEDS: Aspirin 81 MG TAB.CHEW 324 MG PO (08:22)
[2021-08-05] MEDS: Nitroglycerin SL (ED/IMG/CATH) 0.4 MG TABLET SL ×2 (08:23→08:39)
[2021-08-05 08:31] LABS: Mucous, Urine 0 SEEN /hpf (<or=2+)
[2021-08-05 08:45] LABS: Color, Urine Yellow (Yellow); Glucose, Dipstick Normal (Normal); Ketone-Dipstick Negative (Negative); Leukocyte Esterase-Dipstick 25 /ul (Negative); Nitrite-Dipstick Negative (Negative); Occult Blood-Urine 25 /ul (Negative); Protein-Dipstick 15 mg/dl (Negative); Specific Gravity, Urine 1.015 (1.002-1.030); Urine Bilirubin Dipstick Negative (Negative); Urine Clarity Sl. Cloudy (Clear); Urine Urobilinogen Normal (Normal)
[2021-08-05 08:55] LABS: Bacteria 1+ /hpf (None Seen); Red Blood Cells-Urine 0-5 SEEN /hpf (0-5); Squamous Epithelial Cells - UA 0-5 SEEN /hpf (5-10); White Blood Cells 0-5 SEEN /hpf (0-5)
[2021-08-05 09:59] LABS: Reflex Troponin-HS? (from REC) Y
[2021-08-05 10:30] LABS: Troponin-I HS 5 pg/mL (3.0-54.0)
== END 2021-08-05 11:06 | disposition home or self-care (01) ==
PROVIDERS: Emergency Provider Emergency Medicine; PCP Family Medicine; Visit Provider Emergency Medicine
DX: B34.9 Viral infection, unspecified (principal); J44.9 Chronic obstructive pulmonary disease, unspecified; R07.89 Other chest pain; I25.2 Old myocardial infarction; E66.9 Obesity, unspecified; M19.90 Unspecified osteoarthritis, unspecified site; F32.9 Major depressive disorder, single episode, unspecified; F41.9 Anxiety disorder, unspecified; F17.210 Nicotine dependence, cigarettes, uncomplicated; Z79.02 Long term (current) use of antithrombotics/antiplatelets; Z79.82 Long term (current) use of aspirin; Z79.899 Other long term (current) drug therapy
CPT/HCPCS: 36415; 71045; 80048; 81001; 84484; 85025; 87804; 93005; 96360; 96361; 99284; J7030; A4216

== ENCOUNTER → 2021-11-17 | Outpatient (CLI) | payer MEDICARE, SELFPAY ==
[2021-11-17 12:10] LABS: Absolute Lymphocyte Count 3.82 X10^3/uL (0.83-4.51); Absolute Neutrophil Count 7.8 X10^3/uL (2.0-7.7); Basophil# 0.14 X10^3/uL; Basophil% 1.1 % (0-1); Eosinophils% 1.6 % (0-5); Hematocrit 51.7 % (37-47); Lymphocyte # 3.82 X10^3/ul (0.83-4.51); Lymphocyte % 29.8 % (19-41); Mean Corp Hgb Conc 32.9 g/dL (32-36); Mean Corpuscular Hgb 29.5 pg (27.0-32.0); Mean Corpuscular Volume 89.6 fL (81-99); Mean Platelet Vol. 10.2 fl (6.2-12.0); Monocyte# 0.77 X10^3/uL; NRBC Flagged by Analyzer 0 % (0-5); Neutrophil % 60.8 % (47-70); Platelet Count 377 K/mm3 (150-450); RBC Distribution Width CV 15.7 % (11.6-14.6); RBC Distribution Width SD 50.7 fl (35.1-43.9); Red Blood Count 5.77 M/mm3 (4.2-5.4); White Blood Count 12.8 K/mm3 (4.4-11.0)
[2021-11-17 12:27] LABS: ALB/GLOB Ratio 0.9 RATIO (0.9-2.4); AST(SGOT) 18 U/L (15-37); Alanine Aminotransfer ALT/SGPT 25 U/L (13-56); Albumin, Serum 3.6 g/dL (3.2-5.0); Alkaline Phosphatase 89 U/L (45-117); Anion Gap 9 (5-15); BUN 15 mg/dL (7-18); BUN/Creat Ratio 9.4 RATIO (10-20); Calcium,Total 9.7 mg/dL (8.5-10.1); Chloride 100 mmol/L (98-107); Cholesterol 230 mg/dL (200); Creatinine, Serum 1.59 mg/dL (0.55-1.02); EST Glomerular Filtration Rate 35 mL/min (>60); Est Glom Filt Rate - Afr Amer 43 mL/min (>60); Globulin 4.2 g/dL (2.2-4.2); Glucose 111 mg/dL (74-106); High Density Lipoprotein 50 mg/dL; Potassium 4.4 mmol/L (3.5-5.1); Protein, Total 7.8 g/dL (6.4-8.2); Sodium Level 135 mmol/L (136-145); Triglycerides 246 mg/dL; Very Low Density Lipoprotein 49 mg/dL (5-40)
== END | disposition home or self-care (01) ==
LOC: BFHLAB 08:59
PROVIDERS: PCP Family Medicine; Visit Provider Family Medicine
DX: Z00.00 Encounter for general adult medical examination without abnormal findings (principal); I10 Essential (primary) hypertension
CPT/HCPCS: 36415; 80053; 80061; 85025

== ENCOUNTER → 2022-02-14 | Outpatient (CLI) | payer MEDICARE, SELFPAY ==
[2022-02-14 12:07] LABS: Absolute Lymphocyte Count 2.73 X10^3/uL (0.83-4.51); Absolute Neutrophil Count 7.2 X10^3/uL (2.0-7.7); Basophil# 0.09 X10^3/uL; Basophil% 0.8 % (0-1); Eosinophil# 0.12 X10^3/uL; Eosinophils% 1.1 % (0-5); Hematocrit 48.7 % (37-47); Hemoglobin 16.6 g/dL (12.0-15.0); Lymphocyte # 2.73 X10^3/ul (0.83-4.51); Lymphocyte % 24.9 % (19-41); Mean Corp Hgb Conc 34.1 g/dL (32-36); Mean Corpuscular Hgb 30.5 pg (27.0-32.0); Mean Corpuscular Volume 89.4 fL (81-99); Mean Platelet Vol. 10.3 fl (6.2-12.0); Monocyte# 0.75 X10^3/uL; Monocyte% 6.8 % (0-10); NRBC Flagged by Analyzer 0 % (0-5); Neutrophil # 7.21 X10^3/uL (2.7-7.7); Neutrophil % 65.9 % (47-70); Platelet Count 323 K/mm3 (150-450); RBC Distribution Width CV 13.5 % (11.6-14.6); RBC Distribution Width SD 44.2 fl (35.1-43.9); Red Blood Count 5.45 M/mm3 (4.2-5.4)
[2022-02-14 12:40] LABS: Anion Gap 10 (5-15); BUN 19 mg/dL (7-18); BUN/Creat Ratio 14.1 RATIO (10-20); Calcium,Total 9.6 mg/dL (8.5-10.1); Chloride 99 mmol/L (98-107); Creatinine, Serum 1.35 mg/dL (0.55-1.02); EST Glomerular Filtration Rate 43 mL/min (>60); Est Glom Filt Rate - Afr Amer 51 mL/min (>60); Glucose 116 mg/dL (74-106); Potassium 4.1 mmol/L (3.5-5.1); Sodium Level 137 mmol/L (136-145)
[2022-02-14 12:41] LABS: Microalbumin,Random Urine 15.3 mg/L (NO RANGE EST.); Microalbumin:Creatinine Ratio 5.8 mg/g CRE (<30 mg/g CRE)
[2022-02-14 12:48] LABS: Hemoglobin A1c 5.6 % (3.8-5.6)
== END | disposition home or self-care (01) ==
LOC: BFHLAB 11:02
PROVIDERS: PCP Family Medicine; Visit Provider Family Medicine
DX: I12.9 Hypertensive chronic kidney disease with stage 1 through stage 4 chronic kidney disease, or unspecified chronic kidney disease (principal); N18.32 Chronic kidney disease, stage 3b; R73.01 Impaired fasting glucose
CPT/HCPCS: 36415; 80048; 82043; 82570; 83036; 85025

== ENCOUNTER → 2022-12-06 | Outpatient (CLI) | payer MEDICARE, SELFPAY ==
[2022-12-06 12:10] LABS: Absolute Lymphocyte Count 3.16 X10^3/uL (0.83-4.51); Absolute Neutrophil Count 5.9 X10^3/uL (2.0-7.7); Basophil# 0.11 X10^3/uL; Basophil% 1.1 % (0-1); Eosinophil# 0.16 X10^3/uL; Eosinophils% 1.6 % (0-5); Hematocrit 48.1 % (37-47); Hemoglobin 15.8 g/dL (12.0-15.0); Lymphocyte # 3.16 X10^3/ul (0.83-4.51); Lymphocyte % 31.3 % (19-41); Mean Corp Hgb Conc 32.8 g/dL (32-36); Mean Corpuscular Hgb 29.9 pg (27.0-32.0); Mean Corpuscular Volume 91.1 fL (81-99); Mean Platelet Vol. 10.1 fl (6.2-12.0); Monocyte# 0.75 X10^3/uL; Monocyte% 7.4 % (0-10); NRBC Flagged by Analyzer 0 % (0-5); Neutrophil # 5.89 X10^3/uL (2.7-7.7); Neutrophil % 58.2 % (47-70); Platelet Count 286 K/mm3 (150-450); RBC Distribution Width CV 13.2 % (11.6-14.6); RBC Distribution Width SD 44.2 fl (35.1-43.9); Red Blood Count 5.28 M/mm3 (4.2-5.4); White Blood Count 10.1 K/mm3 (4.4-11.0)
[2022-12-06 12:43] LABS: PTHIN 66.5 pg/mL (18.4-80.1)
[2022-12-06 12:44] LABS: ALB/GLOB Ratio 0.9 RATIO (0.9-2.4); AST(SGOT) 20 U/L (15-37); Alanine Aminotransfer ALT/SGPT 25 U/L (13-56); Albumin, Serum 3.6 g/dL (3.2-5.0); Alkaline Phosphatase 81 U/L (45-117); Anion Gap 3 (5-15); BUN 24 mg/dL (7-18); BUN/Creat Ratio 15.1 RATIO (10-20); Calcium,Total 9.4 mg/dL (8.5-10.1); Chloride 101 mmol/L (98-107); Cholesterol 177 mg/dL (200); Creatinine, Serum 1.59 mg/dL (0.55-1.02); EST Glomerular Filtration Rate 35 mL/min (>60); Est Glom Filt Rate - Afr Amer 42 mL/min (>60); Globulin 3.8 g/dL (2.2-4.2); Glucose 90 mg/dL (74-106); High Density Lipoprotein 53 mg/dL; Potassium 4.3 mmol/L (3.5-5.1); Protein, Total 7.4 g/dL (6.4-8.2); Sodium Level 135 mmol/L (136-145); Triglycerides 231 mg/dL; Very Low Density Lipoprotein 46 mg/dL (5-40)
[2022-12-06 12:46] LABS: Vitamin D,25 Hydroxy 32.7 ng/mL
== END | disposition home or self-care (01) ==
LOC: BFHLAB 10:58
PROVIDERS: PCP Family Medicine; Referring Provider Family Medicine; Visit Provider Family Medicine
DX: I25.10 Atherosclerotic heart disease of native coronary artery without angina pectoris (principal); N18.32 Chronic kidney disease, stage 3b; I12.9 Hypertensive chronic kidney disease with stage 1 through stage 4 chronic kidney disease, or unspecified chronic kidney disease
CPT/HCPCS: 36415; 80053; 80061; 82306; 83970; 85025

== ENCOUNTER → 2022-12-15 | Outpatient (CLI) | payer MEDICARE, SELFPAY ==
--- NOTE | 2022-12-15 14:40 | CT_ITS ---
STUDY: LOW DOSE CT LUNG CANCER SCREENING REASON FOR EXAM: Female, 62 years old. One pack per day smoker x47 years RADIATION DOSAGE (If Supplied By Facility): CTDIvol = ( 3.18 ) mGy, DLP = ( 111.59 ) mGycm TECHNIQUE: No contrast was administered. Low dose technique was utilized (average mAS-38 and kVp 120). 1.25 mm axial source images with a slice interval of 1.25-mm were reconstructed in lung windows. 2.5 mm axial source images with a slice interval of 2.5-mm were reconstructed in lung windows. 5.0 mm axial source images with a slice interval of 5.0-mm were reconstructed in soft tissue windows. COMPARISON: 09/06/2018 FINDINGS: Lung windows show lungs to be normally expanded. No organized infiltrate, effusion, or suspicious noncalcified mass or nodule. No significant interval change since the previous study. Limited soft tissue windows show normal-appearing thyroid gland. No suspicious adenopathy. There are calcified coronary vessels. Thoracic aorta tapers normally Limited cuts of the upper abdomen do not show a suspicious abnormality. Bony structures show degenerative change CT/Low Dose CT Lung Screening IMPRESSION: Lung-RADS category 1 - Continue annual screening with LDCT in 12 months. IMPORTANT NOTES FOR USE: ACR Lung-RADS Version 1.1 Assessment Categories Release Date: 2018 Category: Coded 0-4 bases on nodule(s) with highest degree of suspicion. Negative screen is defined as categories 1 and 2; a positive screen is defined as categories 3 and 4. Category 3 and 4A nodules that are unchanged on interval CT should be coded as category 2, and individuals returned to screening in 12 months. Category 4X: Category 3 or 4 nodules with additional imaging findings that increase the suspicion of lung cancer, such as spiculation, GGN that doubles in size in 1 year, enlarged lymph notes, etc. Category Modifiers: S (significant finding unrelated to lung cancer) Electronically Signed: Krish Serna MD at 15:17 EST ,
== END | disposition home or self-care (01) ==
LOC: CT 14:37
PROVIDERS: PCP Family Medicine; Referring Provider Family Medicine; Visit Provider Family Medicine
DX: Z12.2 Encounter for screening for malignant neoplasm of respiratory organs (principal); F17.210 Nicotine dependence, cigarettes, uncomplicated
CPT/HCPCS: 71271

== ENCOUNTER → 2023-01-13 | Outpatient (CLI) | payer MEDICARE, SELFPAY ==
--- NOTE | 2023-01-13 10:31 | BI_ITS ---
MAMMOGRAPHY - BILATERAL SCREENING REASON FOR EXAM: Female, 62 years old. Routine annual screening examination. PERTINENT HISTORY: Non-contributory. TECHNIQUE: Digital bilateral breast lucia (3D mammographic acquisition) in the CC and MLO projections. 2-D mediolateral oblique (MLO) and craniocaudad (CC) views of both breasts were obtained. CAD: Full Field Digital Mammography with Computer Added Detection was performed. COMPARISON: Comparison is made with prior study August 17, 2011. FINDINGS: Breast Composition: There are scattered areas of fibroglandular density. There are no dominant masses or suspicious calcifications. Stable small benign-appearing bilateral axillary lymph nodes. No other significant abnormalities are identified. There has been no significant change since the prior study. BI/SCRN MAMM (CAD)W/LUCIA BILAT IMPRESSION: Stable bilateral screening mammogram. Yearly follow-up mammogram recommended. (A) ASSESSMENT CATEGORY: BIRADS Category 2: Benign. A letter regarding these results will be sent to the patient by the facility within 30 days. Approximately 10% of breast cancers are not detected by mammography. A normal mammogram should not delay biopsy of a clinically suspicious abnormality. [id number] Electronically Signed: Sher Morales MD at 12:30 EST ,
== END | disposition home or self-care (01) ==
LOC: OPBI 10:28
PROVIDERS: PCP Family Medicine; Referring Provider Family Medicine; Visit Provider Family Medicine
DX: Z12.31 Encounter for screening mammogram for malignant neoplasm of breast (principal)
CPT/HCPCS: 77063; 77067

== ENCOUNTER → 2023-05-23 | Outpatient (CLI) | payer MEDICARE, SELFPAY ==
[2023-05-23 12:53] LABS: BNP,B-Type NATRIURETIC PEPTIDE 57.9 pg/mL (0-100)
[2023-05-23 13:27] LABS: AST(SGOT) 27 U/L (15-37); Alanine Aminotransfer ALT/SGPT 36 U/L (13-56); Albumin, Serum 3.5 g/dL (3.2-5.0); Alkaline Phosphatase 77 U/L (45-117); Anion Gap 5 (5-15); BUN 16 mg/dL (7-18); BUN/Creat Ratio 14.4 RATIO (10-20); Calcium,Total 8.9 mg/dL (8.5-10.1); Chloride 108 mmol/L (98-107); Cholesterol 226 mg/dL (200); Creatinine, Serum 1.11 mg/dL (0.55-1.02); EST Glomerular Filtration Rate 53 mL/min (>60); Est Glom Filt Rate - Afr Amer 64 mL/min (>60); Globulin 3.4 g/dL (2.2-4.2); Glucose 84 mg/dL (74-106); High Density Lipoprotein 63 mg/dL; Potassium 4.4 mmol/L (3.5-5.1); Protein, Total 6.9 g/dL (6.4-8.2); Sodium Level 139 mmol/L (136-145); Thyroid Stim Hormone (TSH) 1.49 uIU/mL (0.358-3.74); Triglycerides 157 mg/dL; Very Low Density Lipoprotein 31 mg/dL (5-40)
[2023-05-26 17:19] LABS: Uric Acid 5.7 mg/dL (2.6-6.0)
== END | disposition home or self-care (01) ==
LOC: BFHLAB 10:52
PROVIDERS: PCP Family Medicine; Referring Provider Family Medicine; Visit Provider Family Medicine
DX: I25.10 Atherosclerotic heart disease of native coronary artery without angina pectoris (principal); N18.32 Chronic kidney disease, stage 3b; R63.5 Abnormal weight gain; R06.00 Dyspnea, unspecified; R07.9 Chest pain, unspecified
CPT/HCPCS: 36415; 80053; 80061; 82533; 83880; 84443; 84550

== ENCOUNTER → 2023-06-13 | Outpatient (CLI) | payer MEDICARE, SELFPAY ==
--- NOTE | 2023-06-13 18:33 | STRESSREP ---
Stress Test Report Pharmacologic myocardial perfusion stress test. 62-year-old lady with a history of chest pain Resting EKG demonstrates sinus bradycardia with a rate of 59 bpm. Resting blood pressure is 118/78 mmHg. 0.4 mg of regadenoson was infused per usual protocol followed by rapid intravenous saline flush injection. Continuous EKG monitoring was performed. The maximum heart rate was 73 point bpm which was 45% of max impacted heart rate the maximum workload was 1 metabolic equivalent. At rest there were no ST or T wave changes noted to suggest ischemia and at peak infusion nonspecific ST changes were noted which did not meet the criteria for ischemia. No clinical angina is noted. The final blood pressure was 120/72 mmHg. Myocardial perfusion protocol. 14.3 mCi of technetium 99m sestamibi was injected at rest. 0.4 mg of regadenoson was infused per usual protocol. At peak infusion 44.4 mCi of technetium 99m sestamibi was injected stress images were obtained stress and rest images were reconstructed and compared in the short axis vertical long and horizontal long axis. Gated images were also obtained. Perfusion SPECT analysis: Review of the stress images demonstrate normal uptake of tracer noted in all areas of the myocardium. The resting images similar demonstrated normal uptake of tracer noted in all areas of the myocardium. No areas of reversibility are noted to suggest ischemia and no previous infarct is noted. Gated SPECT analysis: The gated ejection fraction is 80%. Conclusion: Normal pharmacologic myocardial perfusion stress test. Preserved ejection fraction.
== END | disposition home or self-care (01) ==
LOC: CVS 05:54
PROVIDERS: PCP Family Medicine; Referring Provider Family Medicine; Visit Provider Family Medicine
DX: R07.9 Chest pain, unspecified (principal); I25.10 Atherosclerotic heart disease of native coronary artery without angina pectoris
CPT/HCPCS: 78452; 93017; A9500; A4216; J2785

== ENCOUNTER → 2023-06-21 | Outpatient (CLI) | payer MEDICARE, SELFPAY | END | disposition home or self-care (01) | PROVIDERS: PCP Family Medicine; Referring Provider Family Medicine; Visit Provider Family Medicine | DX: E27.0 Other adrenocortical overactivity (principal); R63.5 Abnormal weight gain | CPT/HCPCS: 36415; 82533 ==

== ENCOUNTER → 2023-06-26 | Outpatient (CLI) | payer MEDICARE, SELFPAY ==
--- NOTE | 2023-06-26 17:54 | CT_ITS ---
STUDY: CT ABDOMEN AND PELVIS WITH CONTRAST REASON FOR EXAM: Female, 62 years old. weight gain RADIATION DOSAGE (If Supplied By Facility): CTDIvol = ( 16.77 ) mGy, DLP = ( 1230.00 ) mGycm TECHNIQUE: Transaxial images were obtained from the dome of the diaphragm to the symphysis pubis with oral contrast. Oral and amp; IV Gastrografin and amp; 100mL Isovue-370 was administered. Sagittal and coronal images were reconstructed. Individualized dose optimization techniques were used for this CT. COMPARISON: None. FINDINGS: The visualized lung bases are unremarkable. The visualized portions of the heart are within normal limits. Normal liver. There are surgical clips in the gallbladder fossa consistent with a prior cholecystectomy. Normal spleen. Normal pancreas. 1.5 cm oval mass of the right adrenal gland likely consistent with an adrenal adenoma. Correlation with adrenal protocol CT or MRI is recommended. Normal right kidney. Normal left kidney. Normal visualized stomach. Normal small intestine. Normal colon. There is non-visualization of the appendix. There is diffuse atherosclerotic calcification of the abdominal aorta, without a demonstrated aneurysm. Normal inferior vena cava. Normal retroperitoneum. Normal urinary bladder. Normal abdominal wall. Normal osseous structures. CT/Abdomen/Pelvis WITH Contrast IMPRESSION: Suspect right adrenal gland adenoma and correlation with adrenal protocol CT or MRI is recommended. Electronically Signed: Burt Carreon MD at 22:44 EDT ,
== END | disposition home or self-care (01) ==
LOC: CT 17:50
PROVIDERS: PCP Family Medicine; Referring Provider Family Medicine; Visit Provider Family Medicine
DX: R19.4 Change in bowel habit (principal); R63.5 Abnormal weight gain
CPT/HCPCS: 74177; Q9967

== ENCOUNTER → 2023-06-30 | Outpatient (CLI) | payer MEDICARE, SELFPAY ==
[2023-06-30 16:50] LABS: Estradiol 25.5 pg/mL
[2023-07-06 16:10] LABS: 17-Hydroxyprogesterone 23 ng/dL (.)
== END | disposition home or self-care (01) ==
LOC: BFHLAB 12:02
PROVIDERS: PCP Family Medicine; Referring Provider Family Medicine; Visit Provider Family Medicine
DX: D35.01 Benign neoplasm of right adrenal gland (principal)
CPT/HCPCS: 36415; 82157; 82530; 82627; 82670; 83498; 84403; 82626

== ENCOUNTER → 2023-07-06 | Outpatient (CLI) | payer MEDICARE, SELFPAY ==
--- NOTE | 2023-07-06 17:48 | CT_ITS ---
STUDY: CT ABDOMEN WITH AND WITHOUT CONTRAST REASON FOR EXAM: Female, 62 years old. Right adrenal mass. RADIATION DOSAGE (If Supplied By Facility): CTDIvol = ( 33.67 ) mGy, DLP = ( 2868.83 ) mGycm TECHNIQUE: Transaxial images were obtained pre and post I.V. administration of 100 ML ISOVUE 370, and oral contrast. Sagittal and coronal images were reconstructed. Individualized dose optimization techniques were used for this CT. COMPARISON: Comparison is made with prior study dated June 26, 2023. FINDINGS: The visualized lung bases are unremarkable. The visualized portions of the heart are within normal limits. Normal liver. There are surgical clips in the gallbladder fossa consistent with a prior cholecystectomy. Normal spleen. Normal pancreas. Stable 1.5 cm oval hypodensity in the right adrenal gland suggestive of adrenal adenoma. This is unchanged. Normal right kidney. Normal left kidney. There is a small hiatal hernia. Normal small intestine. Normal colon. The patient is status post appendectomy. The patient is status post hysterectomy. There is scattered atherosclerotic calcification of the abdominal aorta, without a demonstrated aneurysm. Normal inferior vena cava. Normal retroperitoneum. Normal abdominal wall. Normal osseous structures. CT/Abdomen W/WO IV Contrast IMPRESSION: Stable examination. There is evidence of a 1.5 cm hypodensity in the right adrenal gland in keeping with an adenoma. Electronically Signed: Sher Morales MD at 9:26 EDT ,
[2023-07-06 18:13] LABS: CREATININE FINGERSTICK 1.2 mg/dL (0.55-1.02)
== END | disposition home or self-care (01) ==
LOC: CT 17:46
PROVIDERS: PCP Family Medicine; Referring Provider Family Medicine; Visit Provider Family Medicine
DX: E27.8 Other specified disorders of adrenal gland (principal)
CPT/HCPCS: 74170; Q9967

== ENCOUNTER → 2023-07-10 | Outpatient (CLI) | payer MEDICARE, SELFPAY ==
[2023-07-18 13:08] LABS: Cortisol, Free 24Ur 26 ug/24 hr (6-42); Cortisol, Urinary Free 9 ug/L (Undefined)
== END | disposition home or self-care (01) ==
LOC: BFHLAB 13:19 → LABSPEC 13:24
PROVIDERS: PCP Family Medicine; Referring Provider Family Medicine; Visit Provider Family Medicine
DX: D35.01 Benign neoplasm of right adrenal gland (principal)
CPT/HCPCS: 81050; 82530

== ENCOUNTER → 2024-05-22 | Outpatient (CLI) | payer MEDICARE, SELFPAY ==
[2024-05-22 12:40] LABS: Erythrocyte Sedimentation Rate 8 mm/hr (0-30)
[2024-05-22 12:59] LABS: Absolute Lymphocyte Count 2.33 X10^3/uL (0.83-4.51); Basophil% 1.1 % (0-1); Eosinophil# 0.21 X10^3/uL; Eosinophils% 2.3 % (0-5); Hematocrit 42.7 % (37-47); Hemoglobin 14.7 g/dL (12.0-15.0); Lymphocyte # 2.33 X10^3/ul (0.83-4.51); Lymphocyte % 25.4 % (19-41); Mean Corp Hgb Conc 34.4 g/dL (32-36); Mean Corpuscular Hgb 30.8 pg (27.0-32.0); Mean Corpuscular Volume 89.3 fL (81-99); Mean Platelet Vol. 9.9 fl (6.2-12.0); Monocyte# 0.52 X10^3/uL; Monocyte% 5.7 % (0-10); NRBC Flagged by Analyzer 0 % (0-5); Neutrophil # 5.95 X10^3/uL (2.7-7.7); Platelet Count 285 K/mm3 (150-450); RBC Distribution Width CV 13.2 % (11.6-14.6); RBC Distribution Width SD 43.3 fl (35.1-43.9); Red Blood Count 4.78 M/mm3 (4.2-5.4); White Blood Count 9.2 K/mm3 (4.4-11.0)
[2024-05-22 13:58] LABS: ALB/GLOB Ratio 1.3 RATIO (0.9-2.4); AST(SGOT) 19 U/L (<=31); Alanine Aminotransfer ALT/SGPT 13 U/L (<=34); Albumin, Serum 4.1 g/dL (3.4-4.8); Alkaline Phosphatase 85 U/L (35-104); Anion Gap 13 (5-15); BUN 21 mg/dL (4-19); BUN/Creat Ratio 14.6 RATIO (10-20); CPK Total, Creatine Kinase 88 U/L (24-195); Calcium,Total 9.9 mg/dL (7.6-11.0); Carbon Dioxide 26.4 mmol/L (21.0-32.0); Chloride 100 mmol/L (98-108); Cholesterol 281 mg/dL (<=200); Creatinine, Serum 1.43 mg/dL (0.70-1.20); EST Glomerular Filtration Rate 41 (>60); Glucose 96 mg/dL (70-99); High Density Lipoprotein 56 mg/dL; Low Density Lipoprotein Calc. 174 mg/dL; Potassium 4.2 mmol/L (3.3-5.1); Protein, Total 7.1 g/dL (5.9-8.4); Sodium Level 139 mmol/L (133-145); Triglycerides 259 mg/dL; Very Low Density Lipoprotein 52 mg/dL (5-40); cholesterol:hdl ratio screen 5.04
== END | disposition home or self-care (01) ==
LOC: BFHLAB 10:51
PROVIDERS: PCP Family Medicine; Visit Provider Family Medicine
DX: I25.10 Atherosclerotic heart disease of native coronary artery without angina pectoris (principal); N18.31 Chronic kidney disease, stage 3a; I12.9 Hypertensive chronic kidney disease with stage 1 through stage 4 chronic kidney disease, or unspecified chronic kidney disease; M79.10 Myalgia, unspecified site
CPT/HCPCS: 36415; 80053; 80061; 82550; 84443; 85025; 85652; 86140

== ENCOUNTER 2024-11-27 08:48 | Emergency (ER) | payer MEDICARE, SELFPAY ==
[2024-11-27 08:49] VITALS: BP 135/80; PULSE 87; RESP 16; TEMP 36; O2SAT 100
--- NOTE | 2024-11-27 08:55 | ED.VIS.LOWEX ---
HPI History of Present Illness Chief Complaint: Lower Extremity Injury Narrative Narrative: Patient is a 64-year-old female presenting to the emergency department for left hip pain. She did not have any injury to her hip. She has a past medical history of osteoarthritis, obesity, hyperlipidemia, hypertension and NSTEMI. Patient states that she is caring for her sister who lives at [facility]. States that she has had on and off right knee pain and left hip pain for the past few years. States that she started to have left hip pain on Monday after pushing her sister in a wheelchair to go to doctors appointments. When she was lying in bed that evening she noticed her left hip was aching. She states it is aching when it is at rest but when she tries to get up to ambulate she has some pain on the left lateral side of her hip and upper leg. States she has taken Aleve a few times, took nothing today. Has been applying heat to her hip as well as using Biofreeze. She denies any fever, chills, nausea, vomiting. Denies any back pain. [facility] Medical History (Updated 11/27/24 @ 10:[address] Opal Mi MD) Anxiety Depression Smoker Myocardial infarct Hemorrhoids GERD (gastroesophageal reflux disease) COPD (chronic obstructive pulmonary disease) Depression with anxiety Heart disease Arthritis History of back problems Rectal bleeding Family history of coronary artery disease Obesity Nicotine addiction Hyperlipidemia Hypertension Non-ST elevation [place] (NSTEMI) Major depression Home Medications ?Medication ?Instructions ?Recorded ?Last Taken ?Type bupropion HCl 200 mg tablet,12 hr 200 mg PO BID 11/06/15 11/06/15 History sustained-release metoprolol tartrate 25 mg tablet 25 mg PO BID #60 tabs 11/09/15 Unknown Rx nitroglycerin 0.4 mg sublingual 0.4 mg sublingual Q5M PRN chest 11/09/15 Unknown Rx tablet pain #1 BOTTLE alprazolam 0.5 mg tablet 0.5 mg PO PRN PRN Anxiety 10/11/16 Unknown History citalopram 40 mg tablet 40 mg PO QDAY 07/06/17 Unknown History clopidogrel 75 mg tablet (Plavix) 75 mg PO QDAY 07/06/17 04/08/19 History rosuvastatin 10 mg tablet 20 mg PO QDAY 07/06/17 Unknown History losartan 100 1 tab PO DAILY 03/25/19 Unknown History mg-hydrochlorothiazide 25 mg tablet phenazopyridine 200 mg tablet 200 mg PO BID PRN PRN Pain #10 tabs 12/26/19 Unknown Rx albuterol sulfate 90 mcg/actuation 2 puff inhalation Q4H PRN PRN 08/05/21 Unknown Rx aerosol inhaler (Ventolin HFA) Wheezing ##1 pantoprazole 20 mg tablet,delayed 20 mg PO DAILY 11/24/21 Unknown History release Allergy/AdvReac Type Severity Reaction Status Date / Time Acrylic Acid and Acrylates AdvReac Intermediate Other Verified 11/27/24 08:50 (steri-strips (acrylate)) Family History Mother Diabetes Heart disease Hypertension Father Cancer bladder cancer CAD (coronary artery disease) High cholesterol Surgical History (Updated 11/27/24 @ 10:12 by Brandi Argueta) History of appendectomy History of cholecystectomy h/o lap cholecystectomy h/o appendectomy H/O: hysterectomy History of total adrenalectomy Social History Smoking Status: Current every day smoker tobacco type: cigarettes alcohol intake: current alcohol intake frequency: holidays/special occasions only substance use type: does not use ROS ROS ED ROS Narrative see HPI EXAM Physical Exam Narrative Exam Narrative: Vital signs: Reviewed General: Alert and oriented x 3. No acute distress HEENT: Head is normocephalic and atraumatic, sinuses nontender, pupils equal round and reactive. Nares are patent. Oropharynx and throat exams normal. Neck: Supple without lymphadenopathy nontender Cardiovascular: Regular rate and rhythm, no murmurs. No rubs or gallops. Normal S1 and S2 Respiratory: Clear to auscultation bilaterally. No wheezes, rales, rhonchi Abdominal: Soft and nontender. Normal bowel sounds. No guarding or rebound. Nonsurgical abdomen Extremities: No midline cervical, thoracic or lumbar spinal tenderness to palpation. No step-offs or deformities. There is some mild tenderness to palpation over the left SI joint and the left lateral hip. There is no tenderness to palpation of the left upper leg, knee or tib-fib. DP and PT pulses are intact. Sensation intact. Active flexion and extension of the hip is limited due to pain however normal flexion and extension with no pain with passive movement of hip. No redness or warmth of the joint. No bruising. Skin: No rash or redness. The rest of the physical exam is unremarkable Const Vital Signs: 11/27/24 08:49 11/27/24 11:01 Temperature 96.8 F L 98.8 F Temperature Source Temporal Pulse Rate 87 82 Respiratory Rate 16 16 Blood Pressure 135/80 H 122/74 H Blood Pressure Mean 98 90 Pulse Ox 100 96 Oxygen Delivery Method Room Air MDM MDM MDM Narrative Medical decision making narrative: Patient is a 64-year-old female presenting to the emergency department for left hip pain. Patient was seen and examined. Vitals are stable. Patient resting bed comfortably no acute distress. Toradol given for analgesia. X-ray of the hip was ordered given her age and female gender, rule out fracture however less likely given no trauma. Likely MSK in nature. Not consistent with a septic joint given no pain with passive range of motion, no redness, warmth, swelling over joint space. Pain is not down along the back of the left leg consistent with sciatica. She has no back pain. Left hip x-rays were reviewed by myself. No fracture or dislocation noted. Radiology read with mild degree of left hip osteoarthritis. Degenerative changes of the SI joints bilaterally. Patient reevaluated, notes much improvement after the Toradol. Updated on the negative x-ray for fracture or dislocation. She was given RICE instructions. She states she has a rollator at home to use over the next few days to help ambulate. She was able to ambulate here. She was instructed to take NSAIDs over the next few days schedule to help with pain and inflammation. All questions were answered. Patient discharged from the Emergency Department. I do not feel that the patient's evaluation reveals any acute reason for admission at this time. I instructed them to either follow-up with their primary care physician or promptly return to the Emergency Department for reevaluation should symptoms worsen or new symptoms develop. I explained what symptoms would indicate the need to return to the emergency department. Shared decision making was used. The patient voiced understanding of the treatment plan and is agreeable with it. Clinical impression: Left hip pain History & Record Review Discussion w/independent historian: Patient and Significant other Radiography X-Ray: Left Hip, Read by ED Physician and No Fracture Diagnostic Testing: Clinical Impression(s) from Imaging Studies Hip/Pelvis X-Ray 11/27/24 09:06 IMPRESSION: Mild degree of left hip osteoarthritis. Degenerative changes of the sacroiliac joints bilaterally. Reading Location: [facility] Discharge Plan Triage Chief Complaint: Lower Extremity Injury ED Provider: Opal Mi Dx/Rx/DC Orders Clinical Impression: Acute pain of left hip Instructions: ED Hip Strain, ED RICE Prescriptions: No Action citalopram 40 mg tablet 40 mg PO QDAY clopidogrel [Plavix] 75 mg tablet 75 mg PO QDAY rosuvastatin 10 mg tablet 20 mg PO QDAY losartan-hydrochlorothiazide 100-25 mg tablet 1 tab PO DAILY pantoprazole 20 mg tablet,delayed release (DR/EC) 20 mg PO DAILY bupropion HCl 200 MG tablet extended release 12 hr 200 mg PO BID Patient Comments: MENTAL HEALTH nitroglycerin 0.4 MG tablet 0.4 mg SUBLINGUAL Q5M PRN (Reason: chest pain) Qty: 1 0RF Patient Comments: chest pain Rx Instructions: as directed metoprolol tartrate 25 MG tablet 25 mg PO BID Qty: 60 0RF Patient Comments: blood pressure alprazolam 0.5 MG tablet 0.5 mg PO PRN PRN (Reason: Anxiety) Patient Comments: phenazopyridine 200 MG tablet 200 mg PO BID PRN PRN (Reason: Pain) Qty: 10 0RF albuterol sulfate [Ventolin HFA] 90 mcg/actuation HFA aerosol inhaler 2 puff inhalation Q4H PRN PRN (Reason: Wheezing) Qty: 1 0RF Primary Care Provider: Jamie Milner Referrals: Jamie Milner DO [Primary Care Provider, Family Practice] - As soon as possible Activity Restrictions/Additional Instructions: Use your rollator at home to help you ambulate. Take Motrin scheduled every 8 hours for the next 5 to 7 days. Make sure you take it with food. You can also apply Voltaren gel to your hip. You can ice or use heat to your hip to help with pain. If you are still experiencing pain that is not improved in 1 week you need to follow-up with your primary care doctor to have repeat imaging done. Your evaluation in the Emergency Department did not reveal any acute reason for admission. However, I want to emphasize that you may be early in the course of a disease process or illness even if it is not present. For this reason you should follow-up within 24 hours for reevaluation with either your primary care physician or if necessary back here in the Emergency Department. You should return to the Emergency Department immediately if your symptoms worsen or new symptoms develop. Print Language: Kenyan Disposition Disposition: Home, Self Care Discharge Date/Time: 11/27/24 11:02
--- NOTE | 2024-11-27 09:06 | RAD_ITS ---
PROCEDURE: HIP, UNI W/ PELVIS 2-3 VIEWS 11/27/2024 REASON FOR EXAM: Left hip pain. TECHNIQUE: Procedure Code: RADHP Modality: DX Procedure: HIP, UNI W/ PELVIS 2-3 VIEWS Laterality: Left hip. COMPARISON: None FINDINGS: Bones: No fracture Joints: Mild degree of joint space narrowing. Degenerative changes of both sacroiliac joints worse on the right side. Soft tissues: Soft tissues are unremarkable. Other: RAD/HIP, UNI W/ Pelvis 2-3 Views IMPRESSION: Mild degree of left hip osteoarthritis. Degenerative changes of the sacroiliac joints bilaterally. Reading Location: [place] [id number]
[2024-11-27] MEDS: Ketorolac 30 MG/ML Syringe IM (09:45)
[2024-11-27 10:10] VITALS: BMI 37.6
[2024-11-27 11:01] VITALS: BP 122/74; PULSE 82; RESP 16; TEMP 37.1; O2SAT 96
== END 2024-11-27 11:02 | disposition home or self-care (01) ==
PROVIDERS: Emergency Provider Student in an Organized Health Care Education/Training Program; PCP Family Medicine; Visit Provider Student in an Organized Health Care Education/Training Program
DX: M25.552 Pain in left hip (principal); J44.9 Chronic obstructive pulmonary disease, unspecified; E78.5 Hyperlipidemia, unspecified; I10 Essential (primary) hypertension; I25.2 Old myocardial infarction; F32.A Depression, unspecified; Z79.899 Other long term (current) drug therapy; F41.9 Anxiety disorder, unspecified; Z79.02 Long term (current) use of antithrombotics/antiplatelets; K21.9 Gastro-esophageal reflux disease without esophagitis; Z90.49 Acquired absence of other specified parts of digestive tract; Z90.710 Acquired absence of both cervix and uterus; F17.210 Nicotine dependence, cigarettes, uncomplicated
CPT/HCPCS: 73502; 96372; 99282

== ENCOUNTER → 2025-01-04 | Outpatient (CLI) | payer MEDICARE, SELFPAY ==
--- NOTE | 2025-01-04 07:52 | CT_ITS ---
PROCEDURE: LOW DOSE CT LUNG SCREENING 01/04/2025 REASON FOR EXAM: SCREENING Smoking history TECHNIQUE: Procedure Code: [id number] Modality: CT Procedure: LOW DOSE CT LUNG SCREENING Coronal and Sagittal reconstruction series were provided. One or more dose reduction techniques were used (e.g., Automated exposure control, adjustment of the mA and/or kV according to patient size, use of iterative reconstruction technique). REFERENCE LINK: [facility] Lung-RADS RADIATION DOSE SUMMARY: CTDlvol: 4.02 mGy DLP: 138.4 mGycm COMPARISON: 15 December 2022 FINDINGS: PULMONARY NODULES: (Only nodules >3mm are reported) Nodules described below are on series 2 unless otherwise specified. Pulmonary Nodules: No suspicious pulmonary nodules. Hardware:No hardware. Lymph Nodes:No mediastinal lymphadenopathy. Heart and Vasculature:No cardiomegaly or pericardial effusion.Atherosclerotic calcifications of the thoracic aorta. Thoracic aorta and pulmonary arteries have normal contours; noncontrast technique limits evaluation. Coronary Artery Calcifications: Present Lungs and Airways: No evidence of focal airspace disease, pleural effusion, or pneumothorax. Upper Abdomen:Upper abdominal structures are within normal limits. Bones:Degenerative changes of the spine. No soft tissue abnormalities. CT/Low Dose CT Lung Screening IMPRESSION: No suspicious pulmonary nodules. Coronary artery calcification (CAC) is present Lung-RADS Category: 1 NEGATIVE. RECOMMEND 12-MONTH SCREENING LDCT. Other Significant Findings: None. Reading Location: [id number]
--- OUTSIDE RECORDS SUMMARY | 2025-01-04 07:52 | XMS RPT_ITS | CCD ---
Author Organization [facility] InformFormerly [facility] Care Team Providers Care Health Unit Clerk Name Role Phone Dave Flanagan Unavailable Unavailable PROVIDER, UNKNOWN Unavailable Unavailable Jamie Milner Unavailable Unavailable Dave Flanagan Unavailable Unavailable PROVIDER, UNKNOWN Unavailable Unavailable Annia, Jamie Unavailable Unavailable Annabel RN, Farnaz Baltazar Unavailable [phone] Dr. Jamie Milner DO Primary Care Provider [phone] Dr. Jamie Milner DO Attending Provider Jamie Milner Primary Care Unavailable Jamie Milner Attending Unavailable Opal Mi Attending Unavailable Jamie Milner Primary Care Unavailable Jamie Milner Attending Unavailable Jamie Milner Referring Unavailable AnniaJamie temple Primary Care Unavailable Annia, Jamie Referring Unavailable Jamie Milner Primary Care Unavailable Lin Krueger Attending Unavailable Dr. Jamie Milner DO Primary Care Physician Shmuel MARKHAM, Dr. Joseph Attending Physician Lidia Mi MD, Dr. Joseph Emergency Department Physici an Unavailable Allergies Allergy Classification Reported Allergen(s) Allergy Type Date of Onset Reaction(s) Facility (1 source) STERI STRIP drug allergy 07-20-[address] [facility] Work Phone: (6 sources) Acrylic Acid and Acrylates; Translations: [Acrylic Acid and Acrylates] Propensity to adverse reactions 12-29-2021 Other [facility] Comment on above: BLISTERS Medications Current Medications Medication Drug Class(es) Dates Sig (Normalized) Sig (Original) [id number] 200 actuat albuterol 0.09 mg/actuat metered dose inhaler (12 sources) beta2-Adrenergic Agonist Start: 08-05-2021 Start: 08-05-2021 take 1 puff(s) by in halation every four hours as needed Albuterol Sulfate (Ventolin Hfa) 90 mcg/actuation HFA aerosol inhaler Active 2 PUFF INHALATION EVERY 4 HOURS NEEDED August 05, 2021 12:00am Start: 10-11-2016 End: 11-24-2021 Albuterol Sulfate 1 INHALER inhaler Discontinued 1 - 2 NMA INHALATION EVERY 4 HOURS NEEDED as needed for Wheezing 1 0 October 10, 2016 11:00pm November 24, 2021 12:00pm Start: 10-11-2016 End: 11-24-2021 take 1 puff(s) by inhalation every four hours as needed Albuterol Sulfate Discontinued 1 - 2 PUFF INHALATION EVERY 4 HOURS NEEDED October 11, 2016 12:00am November 24, 2021 1:00pm ALPRAZolam 0.5 mg oral tablet (6 sources) Benzodiazepine Start: 10-11-2016 12 hr buPROPion hydrochloride 200 mg extended release oral tablet (7 sources) Aminoketone Start: 07-20-2015 take 1 tablet by mouth twice daily citalopram 40 mg oral tablet (7 sources) Serotonin Reuptake Inhibitor Start: 07-06-2017 take 1 tablet by mouth once daily Start: 07-20-2015 take 1 tablet by carina th once daily CELEXA 40 MG TABS 1 tablet by mouth daily CITALOPRAM HYDROBROMIDE [id number] Ana Bosch PA-C clopidogrel 75 mg oral tablet (7 sources) P2Y12 Platelet Inhibitor Start: 07-06-2017 take 1 tablet by mouth once daily Start: 11-18-2015 take 1 tablet by carina th once daily PLAVIX 75 MG TABS One tablet by mouth daily CLOPIDOGREL BISULFATE [id number] Benito Lozoya MD hydroCHLOROthiazide 25 mg / losartan potassium 100 mg oral tablet (15 sources) Thiazide Diuretic, Angiotensin 2 Receptor Niall Start: 03-25-2019 Start: 03-25-2019 take 1 tablet by carina th once daily Losartan-Hydrochlorothiazide Active 1 TA BLET PO DAILY March 25, 2019 1:00am Start: 11-06-2015 End: 03-25-2019 Losartan-Hydrochlorothiazide Discontinued 1 EACH PO DAILY November 06, 2015 12:00am March 25, 2019 4:05pm Start: 07-20-2015 End: 03-25-2019 Losartan-Hydrochlorothiazide 1 EACH tablet Discontinued 1 NMA PO DAILY November 05, 2015 11:00pm March 25, 2019 3:05pm Start: 07-20-2015 take 1 tablet by carina th once daily LOSARTAN POTASSIUM-HCTZ 100-25 MG TABS O ne tablet by mouth daily LOSARTAN POTASSIUM-HCTZ [id number] Benito Lozoya MD metoprolol tartrate 25 mg oral tablet (7 sources) beta-Adrenergic Niall Start: 11-09-2015 take 1 tablet by mouth twice daily pantoprazole 20 mg delayed release oral tablet (5 sources) Proton Pump Inhibitor Start: 11-24-2021 take 1 tablet by mouth once daily phenazopyridine hydrochloride 200 mg oral tablet (6 sources) Start: 12-26-2019 take 1 tablet by mouth twice daily as needed for pain rosuvastatin calcium 10 mg oral tablet (7 sources) HMG-CoA Reductase Inhibitor Start: 07-06-2017 take 2 tablets by mouth once daily Start: 07-06-2017 take 20 mg by mouth once daily Rosuvastatin Active 20 MG PO daily July 06, 2017 12:00am Start: 02-10-2016 take 1 tablet by carina th at bedtime CRESTOR 10 MG TABS One tablet by mouth at bedtime. ROSUVASTATIN CALCIUM [id number] Benito Lozoya MD Completed/Discontinued Medications Medication Drug Class(es) Dates Sig (Normalized) Sig (Original) aspirin 81 mg delayed release oral tablet (7 sources) Platelet Aggregation Inhibitor, Nonsteroidal Anti-inflammatory Drug Start: 11-09-2015 End: 11-24-2021 take 1 tablet by mouth once daily Aspirin 81 MG tablet Discontinued 81 mg PO DAILY@0800 0 November 08, 2015 11:00pm November 24, 2021 12:01pm atorvastatin 40 mg oral tablet (8 sources) HMG-CoA Reductase Inhibitor Start: 11-09-2015 End: 07-06-2017 take 1 tablet by mouth at bedtime Atorvastatin 40 MG tablet Discontinued 40 mg PO AT BEDTIME 30 0 November 08, 2015 11:00pm July 06, 2017 1:19pm cholecalciferol 0.025 mg chewable tablet (7 sources) Vitamin D Start: 11-06-2015 End: 03-25-2019 take 2 tablets by mouth once daily Cholecalciferol (Vitamin D3) 1,000 UNIT tablet,chewable Discontinued 2000 U PO DAILY November 05, 2015 11:00pm March 25, 2019 3:07pm Start: 11-06-2015 End: 03-25-2019 take 2000 [IU] by mouth once daily Cholecalciferol (Vitamin D3) Discontinued 2000 UNIT PO DAILY November 06, 2015 12:00am March 25, 2019 4:07pm Start: 07-20-2015 take 2 capsules by m outh once daily VITAMIN D 2000 UNIT CAPS 2 capsules by mouth daily CHOLECALCIFEROL [id number] Ana Bosch PA-C docusate sodium 50 mg oral capsule (6 sources) Start: 11-06-2015 End: 11-24-2021 take 1 capsule by mouth once daily Docusate Sodium 50 MG capsule Discontinued 50 mg PO DAILY November 05, 2015 11:00pm November 24, 2021 12:01pm DOCUSATE SODIUM (1 source) Start: 07-20-2015 take 1 capsule by mouth once daily [facility] STOOL SOFTENER 100 MG CAPS 1 capsule by mouth daily DOCUSATE SODIUM [id number] Ana Bosch PA-C lansoprazole 30 mg delayed release oral capsule (13 sources) Proton Pump Inhibitor Start: 04-12-2019 End: 11-24-2021 take 1 capsule by mouth once daily Lansoprazole 30 MG capsule Discontinued 30 mg PO DAILY April 12, 2019 12:00am November 24, 2021 12:01pm Start: 11-06-2015 End: 03-25-2019 Lansoprazole 30 MG capsule Discontinued 40 mg PO DAILY November 05, 2015 11:00pm March 25, 2019 3:06pm Start: 11-06-2015 End: 03-25-2019 take 40 mg by mouth once daily Lansoprazole Discontinu ed 40 MG PO DAILY November 06, 2015 12:00am March 25, 2019 4:06pm Start: 07-20-2015 take 2 capsules by m outh once daily PREVACID 15 MG CPDR 2 capsules by mouth daily LANSOPRAZOLE [id number] Ana Bosch PA-C naproxen sodium 220 mg oral tablet (2 sources) Nonsteroidal Anti-inflammatory Drug Start: 07-20-2015 End: 11-18-2015 take 1 tablet by mouth once daily as needed for pain ALEVE 220 MG TABS 1 tablet by mouth daily as needed for pain NAPROXEN SODIUM [id number] Ana Bosch PA-C 24 hr nicotine 0.875 mg/hr transdermal system (2 sources) Cholinergic Nicotinic Agonist Start: 11-18-2015 End: 12-15-2015 NICODERM CQ 21 MG/24HR PT24 Apply once a day for a week NICOTINE [id number] Tammy Agustin RN nitroglycerin 0.4 mg sublingual tablet (7 sources) Nitrate Vasodilator Start: 11-18-2015 NITROSTAT 0.4 MG SUBL 1 tablet under tongue every 5 min up to 3 X NITROGLYCERIN [id number] Tammy Agustin RN Start: 11-09-2015 Start: 11-09-2015 Nitroglycerin Active 0.4 MG SL Q5M 1 November 09, 2015 12:00am as directed spironolactone 25 mg oral tablet (6 sources) Aldosterone Antagonist Start: 10-11-2016 End: 03-25-2019 take 1 tablet by mouth twice daily Spironolactone 25 MG tablet Discontinued 25 mg PO TWICE A DAY October 10, 2016 11:00pm March 25, 2019 3:07pm sulfamethoxazole 800 mg / trimethoprim 160 mg oral tablet (6 sources) Dihydrofolate Reductase Inhibitor Antibacterial, Sulfonamide Antimicrobial Start: 12-26-2019 End: 11-24-2021 Sulfamethoxazole-Tr imethoprim 1 TABLET tablet Discontinued 1 {tbl} PO TWICE A DAY 14 December 26, 2019 12:00am November 24, 2021 12:02pm Start: 12-26-2019 End: 11-24-2021 take 1 tablet by mouth twice daily Sulfamethoxazole-Trimethoprim Discontinu ed 1 TABLET PO TWICE A DAY December 26, 2019 1:00am November 24, 2021 1:02pm Problems Active Problems Problem Classification Problem Date Documented Date Episodic/Chronic Acute myocardial infarction (7 sources) Non-ST elevation (NSTEMI) myocardial infarction; Translations: [Myocardial infarction] Onset: 11-18-2015 11-18-2015 Chronic Anxiety disorders (1 source) Mixed anxiety and depressive disorder; Translations: [Other specified anxiety disorders] Onset: 07-20-2015 07-20-2015 Chronic Chronic obstructive pulmonary disease and bronchiectasis (2 sources) Chronic obstructive pulmonary disease, unspecified; Translations: [Chronic obstructive pulmonary disease, unspecified] Onset: 01-20-2017 Chronic Complications of surgical procedures or medical care (6 sources) History of adrenalectomy; Translations: [Postprocedural adrenocortical (-medullary) hypofunction] 07-06-2017 Chronic Coronary atherosclerosis and other heart disease (6 sources) Atherosclerotic heart disease of [place]reafski coronary artery without angina pectoris; Translations: [Old myocardial infarction] Onset: 11-18-2015 11-18-2015 Chronic Disorders of lipid metabolism (9 sources) Hyperlipidemia, unspecified; Translations: [Hyperlipidemia] Onset: 11-18-2015 11-18-2015 Chronic Essential hypertension (9 sources) Essential (primary) hypertension; Translations: [Benign essential hypertension] Onset: 07-20-2015 07-20-2015 Chronic Immunizations and screening for infectious disease (6 sources) Suspected disease caused by 2019-nCoV; Translations: [Suspected COVID-19 virus infection] 08-05-2021 Episodic Mood disorders (6 sources) Major depressive disorder; Translations: [Major depressive disorder, single episode, unspecified] 07-06-2017 Chronic Mood disorders (2 sources) Major depressive disorder, single episode, unspecified; Translations: [Major depressive disorder, single episode, unspecified] Onset: 01-20-2017 Nonspecific chest pain (6 sources) Finding of region of thorax; Translations: [Other chest pain] 08-13-2021 Episodic Osteoarthritis (7 sources) Unspecified osteoarthritis, unspecified site; Translations: [Osteoarthritis of right knee joint] Onset: 01-20-2017 11-24-2021 Chronic Other endocrine disorders (2 sources) Disorder of adrenal gland, unspecified; Translations: [Disorder of adrenal gland, unspecified] Onset: 01-20-2017 Chronic Other non-traumatic joint disorders (5 sources) Pain in right knee; Translations: [Right knee pain] 11-24-2021 Episodic Other non-traumatic joint disorders (1 source) Pain in left hip; Translations: [Pain in left hip] Onset: 12-12-2024 Episodic Other non-traumatic joint disorders (1 source) Hip pain; Translations: [Pain in left hip] 12-05-2024 Episodic Other nutritional; endocrine; and metabolic disorders (2 sources) Obesity, unspecified; Translations: [Obesity, unspecified] Onset: 01-20-2017 Chronic Other nutritional; endocrine; and metabolic disorders (3 sources) Body mass index (BMI) 38.0-38.9, adult; Translations: [Body mass index (BMI) 38.0-38.9, adult] Onset: 11-18-2015 11-18-2015 Chronic Other nutritional; endocrine; and metabolic disorders (6 sources) Obesity; Translations: [Obesity, unspecified] 07-06-2017 Chronic Residual codes; unclassified (6 sources) Family history of coronary arteriosclerosis; Translations: [Family history of ischemic heart disease and other diseases of the circulatory system] 07-06-2017 Episodic Substance-related disorders (10 sources) Nicotine dependence, cigarettes, uncomplicated; Translations: [Nicotine dependence] Onset: 11-18-2015 11-18-2015 Chronic Unclassified (1 source) Long-term drug therapy; Translations: [Other 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 (current) drug therapy] Onset: 11-18-2015 11-18-2015 Viral infection (6 sources) Acute viral disease; Translations: [Viral infection, unspecified] 08-13-2021 Episodic Past or Other Problems Problem Classification Problem Date Documented Date Episodic/Chronic Medical examination/evaluatio n (2 sources) Encounter for other preprocedural examination; Translations: [Encounter for other preprocedural examination] Onset: 01-13-2017 Episodic Other aftercare (2 sources) retirement (current) use of aspirin; Translations: [retirement (current) use of aspirin] Onset: 01-20-2017 Episodic Other non-traumatic joint disorders (1 source) Knee pain; Translations: [Pain in left knee] Onset: 07-20-2015 07-20-2015 Episodic Other skin disorders (2 sources) Hirsutism; Translations: [Hirsutism] Onset: 01-20-2017 Episodic Other skin disorders (1 source) Mass of neck; Translations: [Localized swelling, mass and lump, neck] Onset: 07-20-2015 07-20-2015 Episodic Unclassified (2 sources) Other specified abnormal findings of blood chemistry; Translations: [Other specified abnormal findings of blood chemistry] Onset: 01-20-2017 Episodic Unclassified (2 sources) Tobacco use; Translations: [Tobacco use] Onset: 01-13-2017 Episodic Unclassified (6 sources) h/o lap cholecystectomy 08-27-2021 Results Test Name Value Interpretation Reference Range Facility Gastroenterology Visit Repor ton 12-19-2024 Gastroenterology Visit Report [facility] [address] [place] [address] OFFICE VISIT Date of Service: 12/19/24 MR#: [id number] Acct: [id number] Name: JAROCHO KELLY Rep #: [id number] : 1960 Provider: ACE Liang Age/Sex: 64/F Location: [facility] Status: Signed Intake Vital Signs 11/27/24 08:49 Height 5 ft 6 in Intake Visit Reasons: chronic constipation/flatus Chief Complaint: Colonoscopy Allergies Acrylic Acid and Acrylates (steri-strips (acrylate)) Adverse Reaction (Intermediate, Verified 12/19/24 09:23) Other Medications ???Medication ???Instructions ???Recorded ???Confirmed ???Type bupropion HCl 200 mg tablet,12 hr 200 mg PO BID 11/06/15 12/19/24 H istory sustained-release metoprolol tartrate 25 mg tablet 25 mg PO BID #60 tabs 11/09/15 Rx nitroglycerin 0.4 mg sublingual 0.4 mg sublingual Q5M PRN chest 12/19/24 Rx tablet pain #1 BOTTLE citalopram 40 mg tablet 40 mg PO QDAY 07/06/17 12/19/24 Hi story rosuvastatin 10 mg tablet 20 mg PO QDAY 07/06/17 12/19/24 Hi story losartan 100 1 tab PO DAILY 03/25/19 12/19/24 H istory mg-hydrochlorothiazide 25 mg tablet phenazopyridine 200 mg tablet 200 mg PO BID PRN PRN Pain #10 tab s 12/26/19 12/19/24 Rx albuterol sulfate 90 mcg/actuation 2 puff inhalation Q4H PRN PRN 12/19/24 Rx aerosol inhaler (Ventolin HFA) Wheezing ##1 pantoprazole 20 mg tablet,delayed 20 mg PO DAILY 11/24/21 12/19/24 History release bisacodyl 5 mg tablet 20 mg (4 x 5 mg) PO ONCE #4 tabs 1 02/19/24 12/19/24 Rx polyethylene glycol 3350 17 238 g PO ONCE #238 grams 12/19/24 12/19/24 Rx gram/dose oral powder Nurse's Note: Pt was scheduled for colonoscopy on 01.17.25 at the end of their appt today. Reviewed prep instructions and which medications to hold prior to procedure with pt in office. A paper copy of miralax prep instructions were given to pt. Pt denies any questions or concerns at this time. [facility] Medical History H/O acute myocardial infarction Pes anserine bursitis PAD (peripheral artery disease) CAD (coronary artery disease) Anxiety Depression Smoker Myocardial infarct Hemorrhoids GERD (gastroesophageal reflux disease) COPD (chronic obstructive pulmonary disease) Depression with anxiety Heart disease Arthritis History of back problems Rectal bleeding Family history of coronary artery disease Obesity Nicotine addiction Hyperlipidemia Hypertension Non-ST elevation [place] (NSTEMI) Major depression Surgical History History of appendectomy History of cholecystectomy h/o lap cholecystectomy h/o appendectomy H/O: hysterectomy History of total adrenalectomy Family History Mother Diabetes Heart disease Hypertension Myocardial infarction Father Cancer bladder cancer CAD (coronary artery disease) High cholesterol Brother Cancer pancreatic Social History Smoking Status: Current every day smoker tobacco type: cigarettes alcohol intake: current alcohol intake frequency: holidays/special occasions only substance use type: does not use caffeine: Yes HPI HPI Chief Complaint: Colonoscopy Details: JAROCHO KELLY, is a 64 F who presents to the office today for establishment. Past medical history of osteoarthritis, obesity, nicotine addiction, hyperlipidemia, hypertension and NSTEMI. Patient referred from primary care provider due to need for screening colonoscopy. Last colonoscopy was [address] Lee and she had a polyp. Over the past 6 months she has been having constipation which is abnormal for her. She is going 2 to 3 days without a bowel movement. She feels very bloated and uncomfortable in between. She feels like it worsens her shortness of breath when she is constipated. She has trialed lactulose as needed but no other prescription medications. She denies blood in her stool or unintentional weight loss. She denies family history of colon cancer. ROS Const Constitutional: Positive for fatigue; No fever(s) or weight change ENT ENT: No difficulty swallowing Gastro GI: Positive for bloating, change in bowel habits, constipation, heartburn and excessive flatus; No abdominal pain, belching, change in stool character, coffee ground emesis, cramping, diarrhea, difficulty swallowing, feeling full early, incontinent of stools, Vomiting blood/hematemesis, Blood in stool, loose stools, Black,tarry stools, nausea/dyspepsia, pain with swallowing, vomiting or other Musc Musculoskeletal: Positive for abnormal gait, joint pain, back pain, muscle cramps, sti (more content not included)... Normal [facility] Emergency Department Summary on 11-27-2024 Emergency Department Summary [facility] Medical Records Department [address] [place] [address] Emergency Department Summary 11/27/24 MR#: [id number] Acct: [id number] Name: JAROCHO KELLY Rep #: [id number] : 1960 64 From: Opal Mi MD PCP: Dr. Jamie Milner, DO Status:DEP ER Location: ED HPI History of Present Illness Chief Complaint: Lower Extremity Injury Narrative Narrative: Patient is a 64-year-old female presenting to the emergency department for left hip pain. She did not have any injury to her hip. She has a past medical history of osteoarthritis, obesity, hyper lipidemia, hypertension and NSTEMI. Patient states that she is caring for her sister who lives at [facility]. States that she has had on and off right knee pain and left hip pain for the past few years. States that she started to have left hip pain on Monday after pushing her sister in a wheelchair to go to doctors appointments. When she was lying in bed that evening she noticed her left hip was aching. She states it is aching when it is at rest but when she tries to get up to ambulate she has some pain on the left lateral side of her hip and upper leg. States she has taken Aleve a few times, took nothing today. Has been applying heat to her hip as well as using Biofreeze. She denies any fever, chills, nausea, vomiting. Denies any back pain. [facility] Medical History (Updated 11/27/24 @ 10:[address] Opal Mi MD) Anxiety Depression Smoker Myocardial infarct Hemorrhoids GERD (gastroesophageal reflux disease) COPD (chronic obstructive pulmonary disease) Depression with anxiety Heart disease Arthritis History of back problems Rectal bleeding Family history of coronary artery disease Obesity Nicotine addiction Hyperlipidemia Hypertension Non-ST elevation [place] (NSTEMI) Major depression Home Medications ???Medication ???Instructions ???Recorded ???Last Taken ???Type bupropion HCl 200 mg tablet,12 hr 200 mg PO BID 11/06/15 11/06/15 H istory sustained-release metoprolol tartrate 25 mg tablet 25 mg PO BID #60 tabs 11/09/15 Unk nown Rx nitroglycerin 0.4 mg sublingual 0.4 mg sublingual Q5M PRN chest Unknown Rx tablet pain #1 BOTTLE alprazolam 0.5 mg tablet 0.5 mg PO PRN PRN Anxiety 10/11/16 Unknown History citalopram 40 mg tablet 40 mg PO QDAY 07/06/17 Unknown His tory clopidogrel 75 mg tablet (Plavix) 75 mg PO QDAY 07/06/17 04/08/19 H istory rosuvastatin 10 mg tablet 20 mg PO QDAY 07/06/17 Unknown His tory losartan 100 1 tab PO DAILY 03/25/19 Unknown Hi story mg-hydrochlorothiazide 25 mg tablet phenazopyridine 200 mg tablet 200 mg PO BID PRN PRN Pain #10 tab s 12/26/19 Unknown Rx albuterol sulfate 90 mcg/actuation 2 puff inhalation Q4H PRN PRN Unknown Rx aerosol inhaler (Ventolin HFA) Wheezing ##1 pantoprazole 20 mg tablet,delayed 20 mg PO DAILY 11/24/21 Unknown H istory release Allergy/AdvReac Type Severity Reaction Status Date / Time Acrylic Acid and Acrylates AdvReac Intermediate Other Verified 11/27/24 08:50 (steri-strips (acrylate)) Family History Mother Diabetes Heart disease Hypertension Father Cancer bladder cancer CAD (coronary artery disease) High cholesterol Surgical History (Updated 11/27/24 @ 10:12 by Brandi Argueta) History of appendectomy History of cholecystectomy h/o lap cholecystectomy h/o appendectomy H/O: hysterectomy History of total adrenalectomy Social History Smoking Status: Current every day smoker tobacco type: cigarettes alcohol intake: current alcohol intake frequency: holidays/special occasions only substance use type: does not use ROS ROS ED ROS Narrative see HPI EXAM Physical Exam Narrative Exam Narrative: Vital signs: Reviewed General: Alert and oriented x 3. No acute distress HEENT: Head is normocephalic and atraumatic, sinuses nontender, pupils equal round and reactive. Nares are patent. Oropharynx and throat exams normal. Neck: Supple without lymphadenopathy nontender Cardiovascular: Regular rate and rhythm, no murmurs. No rubs or gallops. Normal S1 and S2 Respiratory: Clear to auscultation bilaterally. No wheezes, rales, rhonchi Abdominal: Soft and nontender. Normal bowel sounds. No guarding or rebound. Nonsurgical abdomen Extremities: No midline cervical, thoracic or lumbar spinal tenderness to palpation. No step-offs or deformities. There is some mild tenderness to palpation over the left SI joint and the left lateral hip. There is no tenderness to palpation of the left upper leg, knee or tib-fib. DP and PT pulses are intact. Sensation intact. Active flexion and extension of the hip is limited due to pain however normal flexion and extens (more content not included)... Normal [facility] HIP, UNI W/ Pelvis 2-3 Views on 11-27-2024 HIP, UNI W/ Pelvis 2-3 Views [facility] Imaging Services [address] [place] [address] HIP, UNI W/ Pelvis 2-3 Views MR#: [id number] Acct: [id number] Name: JAROCHO KELLY Rep #: [id number] : 1960 F 64 From: Sher tavares MD PCP: Dr. Jamie Milner, DO Status: REG ER Study: HIP, UNI W/ Pelvis 2-3 Views Date of Exam: Exam# [id number] Ordering Dr: Opal Mi MD PROCEDURE: HIP, UNI W/ PELVIS 2-3 VIEWS 11/27/2024 REASON FOR EXAM: Left hip pain. TECHNIQUE: Procedure Code: RADHP Modality: DX Procedure: HIP, UNI W/ PELVIS 2-3 VIEWS Laterality: Left hip. COMPARISON: None FINDINGS: Bones: No fracture Joints: Mild degree of joint space narrowing. Degenerative changes of both sacroiliac joints worse on the right side. Soft tissues: Soft tissues are unremarkable. Other: RAD/HIP, UNI W/ Pelvis 2-3 Views IMPRESSION: Mild degree of left hip osteoarthritis. Degenerative changes of the sacroiliac joints bilaterally. Reading Location: [place] [address] CC: Dr. Opal Mi MD; Dr. Jamie Milner DO Premises Technician: Signed Normal [facility] Absolute neutrophil countOrd ered By: Jamie Milner on 05-22-2024 Neutrophils (Bld) [#/Vol] 6.0 10*3/uL 2.0-7.7 [facility] Anion gap in Serum or Plasma Ordered By: aJmie Milner on 05-22-2024 Anion gap [Moles/Vol] 13 mmol/L 5-15 [facility] BUN/creatinine ratioOrdered By: Jamie Milner on 05-22-2024 Urea nitrogen/Creatinine [Mass ratio] 14.6 mg/mg 10-20 [facility] Basophil percentageOrdered B y: Jamie Milner on 05-22-2024 Basophils/100 WBC (Bld) 1.1 % High 0-1 [facility] Bilirubin, totalOrdered By: Jamie Milner on 05-22-2024 Bilirubin [Mass/Vol] 0.40 mg/dL 0.00-1.30 [facility] CBC W/Diff, Automatedon 05-07 Absolute Lymph 2.33 X10 3/uL Normal 0.83-4.51 [facility] Comment on above: Performed By: #### L 500.4050, L501.3620, L100.0100, L500.4100, L501.9520, L101.9900, L501.6710 #### [facility] [address] [place], [address] Absolute Neut 6.0 X10 3/uL Normal 2.0-7.7 [facility] Comment on above: Performed By: #### L 500.4050, L501.3620, L100.0100, L500.4100, L501.9520, L101.9900, L501.6710 #### [facility] [address] [place], [address] Basophils/100 WBC (Bld) 1.1 % High 0-1 [facility] Comment on above: Performed By: #### L 500.4050, L501.3620, L100.0100, L500.4100, L501.9520, L101.9900, L501.6710 #### [facility] [address] [place], [address] Eosinophils/100 WBC (Bld) 2.3 % Normal 0-5 [facility] Comment on above: Performed By: #### L 500.4050, L501.3620, L100.0100, L500.4100, L501.9520, L101.9900, L501.6710 #### [facility] [address] [place], [address] Erythrocyte distribution width (RBC) [Ratio] 13.2 % Normal 11.6-14.6 [facility] Comment on above: Performed By: #### L 500.4050, L501.3620, L100.0100, L500.4100, L501.9520, L101.9900, L501.6710 #### [facility] [address] [place], [address] Hematocrit (Bld) [Volume fraction] 42.7 % Normal 37-47 [facility] Comment on above: Performed By: #### L 500.4050, L501.3620, L100.0100, L500.4100, L501.9520, L101.9900, L501.6710 #### [facility] [address] [place], [address] Hemoglobin (Bld) [Mass/Vol] 14.7 g/dL Normal 12.0-15.0 [facility] Comment on above: Performed By: #### L 500.4050, L501.3620, L100.0100, L500.4100, L501.9520, L101.9900, L501.6710 #### [facility] [address] [place], [address] IG% 0.500 Normal 0.0-0.9 [facility] Comment on above: Result Comment: IG% - Immature Granulocytes (promyelocytes, myelocytes and metamyelocytes) > 1% indicates that a LEFT SHIFT is Present. Performed By: #### L 500.4050, L501.3620, L100.0100, L500.4100, L501.9520, L101.9900, L501.6710 #### [facility] [address] [place], [address] Lymphocytes/100 WBC (Bld) 25.4 % Normal 19-41 [facility] Comment on above: Performed By: #### L 500.4050, L501.3620, L100.0100, L500.4100, L501.9520, L101.9900, L501.6710 #### [facility] [address] [place], [address] MCH (RBC) [Entitic mass] 30.8 pg Normal 27.0-32.0 [facility] Comment on above: Performed By: #### L 500.4050, L501.3620, L100.0100, L500.4100, L501.9520, L101.9900, L501.6710 #### [facility] [address] [place], [address] MCHC (RBC) [Mass/Vol] 34.4 g/dL Normal 32-36 [facility] Comment on above: Performed By: #### L 500.4050, L501.3620, L100.0100, L500.4100, L501.9520, L101.9900, L501.6710 #### [facility] [address] [place], [address] MCV (RBC) [Entitic vol] 89.3 fL Normal 81-99 [facility] Comment on above: Performed By: #### L 500.4050, L501.3620, L100.0100, L500.4100, L501.9520, L101.9900, L501.6710 #### [facility] [address] [place], [address] Monocytes/100 WBC (Bld) 5.7 % Normal 0-10 [facility] Comment on above: Performed By: #### L 500.4050, L501.3620, L100.0100, L500.4100, L501.9520, L101.9900, L501.6710 #### [facility] [address] [place], [address] Neutrophils/100 WBC (Bld) 65.0 % Normal 47-70 [facility] Comment on above: Performed By: #### L 500.4050, L501.3620, L100.0100, L500.4100, L501.9520, L101.9900, L501.6710 #### [facility] [address] [place], [address] Nucleated RBC (Bld) [#/Vol] 0 10*3/uL Normal 0-5 [facility] Comment on above: Performed By: #### L 500.4050, L501.3620, L100.0100, L500.4100, L501.9520, L101.9900, L501.6710 #### [facility] [address] [place], [address] Platelet mean volume (Bld) [Entitic vol] 9.9 fL Normal 6.2-12.0 [facility] Comment on above: Performed By: #### L 500.4050, L501.3620, L100.0100, L500.4100, L501.9520, L101.9900, L501.6710 #### [facility] [address] [place], [address] Platelets (Bld) [#/Vol] 285 10*3/uL Normal 150-450 [facility] Comment on above: Performed By: #### L 500.4050, L501.3620, L100.0100, L500.4100, L501.9520, L101.9900, L501.6710 #### [facility] [address] [place], [address] RBC (Bld) [#/Vol] 4.78 10*6/uL Normal 4.2-5.4 [facility] Comment on above: Performed By: #### L 500.4050, L501.3620, L100.0100, L500.4100, L501.9520, L101.9900, L501.6710 #### [facility] [address] [place], [address] RDW SD 43.3 fl Normal 35.1-43.9 [facility] Comment on above: Performed By: #### L 500.4050, L501.3620, L100.0100, L500.4100, L501.9520, L101.9900, L501.6710 #### [facility] [address] [place], [address] WBC (Bld) [#/Vol] 9.2 10*3/uL Normal 4.4-11.0 [facility] Comment on above: Performed By: #### L 500.4050, L501.3620, L100.0100, L500.4100, L501.9520, L101.9900, L501.6710 #### [facility] [address] [facility] [place], [address] CPK Total, Creatine Kinaseon 05-22-2024 CPK TOTAL 88 U/L Normal 24-195 [facility] Comment on above: Performed By: #### L 500.4050, L501.3620, L100.0100, L500.4100, L501.9520, L101.9900, L501.6710 #### [facility] [address] [facility] [place], [address] CRPon 05-22-2024 C-REACTIVE PROT 11.80 mg/L High 0.0-3.0 [facility] Comment on above: Performed By: #### L 500.4050, L501.3620, L100.0100, L500.4100, L501.9520, L101.9900, L501.6710 #### [facility] [address] [place], [address] CRP [Mass/Vol]Ordered By: Chilo Milner on 05-22-2024 C-Reactive Protein Extended Range 11.80 mg/L High 0.0-3.0 [facility] Calculated very low density lipoprotein (VLDL) cholesterol measurementOrdered By: Jamie Milner on 05-22-2024 VLDL Cholesterol 52 mg/dL High 5-40 [facility] Carbon dioxide, total [Moles /volume] in Central venous bloodOrdered By: Jamie Milner on 05-22-2024 CO2 [Moles/Vol] 26.4 mmol/L 21.0-32.0 [facility] Chloride assayOrdered By: Chilo Milner on 05-22-2024 Chloride [Moles/Vol] 100 mmol/L 98-108 [facility] Comprehensive Metabolic Prof ilon 05-22-2024 Albumin [Mass/Vol] 4.1 g/dL Normal 3.4-4.8 [facility] Comment on above: Performed By: #### L 500.4050, L501.3620, L100.0100, L500.4100, L501.9520, L101.9900, L501.6710 #### [facility] [address] [place], [address] Albumin/Globulin [Mass ratio] 1.3 {ratio} Normal 0.9-2.4 [facility] Comment on above: Performed By: #### L 500.4050, L501.3620, L100.0100, L500.4100, L501.9520, L101.9900, L501.6710 #### [facility] [address] [place], [address] ALK PHOS 85 U/L Normal 35-104 [facility] Comment on above: Performed By: #### L 500.4050, L501.3620, L100.0100, L500.4100, L501.9520, L101.9900, L501.6710 #### [facility] [address] [place], [address] ALT [Catalytic activity/Vol] 13 U/L Normal <=34 [facility] Comment on above: Performed By: #### L 500.4050, L501.3620, L100.0100, L500.4100, L501.9520, L101.9900, L501.6710 #### [facility] [address] [place], [address] AST [Catalytic activity/Vol] 19 U/L Normal <=31 [facility] Comment on above: Performed By: #### L 500.4050, L501.3620, L100.0100, L500.4100, L501.9520, L101.9900, L501.6710 #### [facility] [address] [place], [address] Bilirubin [Mass/Vol] 0.40 mg/dL Normal 0.00-1.30 [facility] Comment on above: Performed By: #### L 500.4050, L501.3620, L100.0100, L500.4100, L501.9520, L101.9900, L501.6710 #### [facility] [address] [place], [address] BUN/CRE 14.6 RATIO Normal 10-20 [facility] Comment on above: Performed By: #### L 500.4050, L501.3620, L100.0100, L500.4100, L501.9520, L101.9900, L501.6710 #### [facility] [address] [place], [address] Calcium [Mass/Vol] 9.9 mg/dL Normal 7.6-11.0 [facility] Comment on above: Performed By: #### L 500.4050, L501.3620, L100.0100, L500.4100, L501.9520, L101.9900, L501.6710 #### [facility] [address] [place], [address] Chloride [Moles/Vol] 100 mmol/L Normal 98-108 [facility] Comment on above: Performed By: #### L 500.4050, L501.3620, L100.0100, L500.4100, L501.9520, L101.9900, L501.6710 #### [facility] [address] [place], [address] CO2 [Moles/Vol] 26.4 mmol/L Normal 21.0-32.0 [facility] Comment on above: Performed By: #### L 500.4050, L501.3620, L100.0100, L500.4100, L501.9520, L101.9900, L501.6710 #### [facility] [address] [place], [address] Creatinine [Mass/Vol] 1.43 mg/dL High 0.70-1.20 [facility] Comment on above: Performed By: #### L 500.4050, L501.3620, L100.0100, L500.4100, L501.9520, L101.9900, L501.6710 #### [facility] [address] [place], [address] GAP 13 Normal 5-15 [facility] Comment on above: Performed By: #### L 500.4050, L501.3620, L100.0100, L500.4100, L501.9520, L101.9900, L501.6710 #### [facility] [address] [place], [address] GFR/1.73 sq M.predicted among non-blacks MDRD (S/P/Bld) [Vol rate/Area] 41 mL/min/{1.73_m2} Low >60 [facility] Comment on above: Result Comment: mL/m in/1.73m2 CKD-EPI Creatinine Equation (2020) Performed By: #### L 500.4050, L501.3620, L100.0100, L500.4100, L501.9520, L101.9900, L501.6710 #### [facility] [address] [place], [address] Globulin (S) [Mass/Vol] 3.0 g/dL Normal 2.2-4.2 [facility] Comment on above: Performed By: #### L 500.4050, L501.3620, L100.0100, L500.4100, L501.9520, L101.9900, L501.6710 #### [facility] [address] [place], [address] Glucose [Mass/Vol] 96 mg/dL Normal 70-99 [facility] Comment on above: Performed By: #### L 500.4050, L501.3620, L100.0100, L500.4100, L501.9520, L101.9900, L501.6710 #### [facility] [address] [place], [address] Potassium [Moles/Vol] 4.2 mmol/L Normal 3.3-5.1 [facility] Comment on above: Performed By: #### L 500.4050, L501.3620, L100.0100, L500.4100, L501.9520, L101.9900, L501.6710 #### [facility] [address] [place], [address] Sodium [Moles/Vol] 139 mmol/L Normal 133-145 [facility] Comment on above: Performed By: #### L 500.4050, L501.3620, L100.0100, L500.4100, L501.9520, L101.9900, L501.6710 #### [facility] [address] [place], [address] T PROT 7.1 g/dL Normal 5.9-8.4 [facility] Comment on above: Performed By: #### L 500.4050, L501.3620, L100.0100, L500.4100, L501.9520, L101.9900, L501.6710 #### [facility] [address] [place], [address] Urea nitrogen [Mass/Vol] 21 mg/dL High 4-19 [facility] Comment on above: Performed By: #### L 500.4050, L501.3620, L100.0100, L500.4100, L501.9520, L101.9900, L501.6710 #### [facility] [address] [place], [place], [address] Eosinophil percentageOrdered By: Jamie Minler on 05-22-2024 Eosinophils/100 WBC (Bld) 2.3 % 0-5 [facility] Erythrocyte Sed Rateon 05-22 SED RATE 8 mm/hr Normal 0-30 [facility] Comment on above: Performed By: #### L 500.4050, L501.3620, L100.0100, L500.4100, L501.9520, L101.9900, L501.6710 #### [facility] [address] [place], [place], [address] Erythrocyte distribution wid th (RBC) [Ratio]Ordered By: Jamie Milner on 05-22-2024 Erythrocyte distribution width (RBC) [Entitic vol] 43.3 fL 35.1-43.9 [facility] Erythrocyte distribution wid th ratioOrdered By: Jamie Milner on 05-22-2024 Erythrocyte distribution width (RBC) [Ratio] 13.2 % 11.6-14.6 [facility] Erythrocyte sedimentation ra teOrdered By: Jamie Milner on 05-22-2024 ESR (Bld) [Velocity] 8 mm/h 0-30 [facility] GFR/1.73 sq M.predicted stephany g non-blacks MDRD (S/P/Bld) [Vol rate/Area]Ordered By: Jamie Milner on 05-22-2024 Estimated GFR (MDRD) Non-Af Amer 41 Low >60 [facility] Comment on above: mL/min/1.73m2 CKD-EP I Creatinine Equation (2020) Hematocrit Auto (Bld) [Volum e fraction]Ordered By: Jamie Milner on 05-22-2024 Hematocrit (Bld) [Volume fraction] 42.7 % 37-47 [facility] Hemoglobin measurementOrdere d By: Jamie Milner on 05-22-2024 Hemoglobin (Bld) [Mass/Vol] 14.7 g/dL 12.0-15.0 [facility] Immature granulocytes/100 WB C Auto (Bld)Ordered By: Jamie Milner on 05-22-2024 Immature granulocytes/100 WBC (Bld) 0.500 % 0.0-0.9 [facility] Comment on above: IG% - Immature Granu locytes (promyelocytes, myelocytes and metamyelocytes) > 1% indicates that a LEFT SHIFT is Present. LDL calc ser/plasOrdered By: Jamie Milner on 05-22-2024 LDL Cholesterol, Calculated 174 mg/dL [facility] Comment on above: Lkeprrtrqy=079-488 m g/dL & Higher Iexz=207 mg/dL or greater Laboratory - Chemistry and C hemistry - challengeOrdered By: Jamie Milner on 05-22-2024 AST [Catalytic activity/Vol] 19 U/L <32 [facility] Lipid Profileon 05-22-2024 CHOL:HDL 5.04 Normal [facility] Comment on above: Performed By: #### L 500.4050, L501.3620, L100.0100, L500.4100, L501.9520, L101.9900, L501.6710 #### [facility] [address] [place], [address] Cholesterol [Mass/Vol] 281 mg/dL High <=200 [facility] Comment on above: Result Comment: Chol esterol level, Desirable <200 mg/dL Borderline high cholesterol 200-239 mg/dL High cholesterol >=240 mg/dL Recommendations of the NCEP Adult Treatment Panel for the following risk-cutoff thresholds for the [place] population. Performed By: #### L 500.4050, L501.3620, L100.0100, L500.4100, L501.9520, L101.9900, L501.6710 #### [facility] [address] [place], [address] Cholesterol in HDL [Mass/Vol] 56 mg/dL Normal [facility] Comment on above: Result Comment: Brandi onal Cholesterol Education Program (NCEP) guidelines: <40 mg/dL: Low HDL-cholesterol (major risk factor for CHD) >= 60 mg/dL: High HDL-cholesterol (negative risk factor for CHD) HDL-cholesterol is affected by a number of factors, e.g. smoking, exercise, hormones, sex and age. Performed By: #### L 500.4050, L501.3620, L100.0100, L500.4100, L501.9520, L101.9900, L501.6710 #### [facility] [address] [place], [address] Cholesterol in LDL [Mass/Vol] 174 mg/dL Normal [facility] Comment on above: Result Comment: Bord nnxjmu=799-346 mg/dL Higher Pvxe=169 mg/dL or greater Performed By: #### L 500.4050, L501.3620, L100.0100, L500.4100, L501.9520, L101.9900, L501.6710 #### [facility] [address] [place], [address] Cholesterol in VLDL [Mass/Vol] 52 mg/dL High 5-40 [facility] Comment on above: Performed By: #### L 500.4050, L501.3620, L100.0100, L500.4100, L501.9520, L101.9900, L501.6710 #### [facility] [address] [place], [address] Triglyceride [Mass/Vol] 259 mg/dL High [facility] Comment on above: Result Comment: The drugs N-Acetylcysteine and Metamizole may falsely depress this assay. Normal range: <150 mg/dL Borderline High: 150-199 mg/dL High: 200-499 mg/dL Very High: >500 mg/dL Performed By: #### L 500.4050, L501.3620, L100.0100, L500.4100, L501.9520, L101.9900, L501.6710 #### [facility] [address] [place], [address] Lymphocytes Auto (Unsp spec) [#/Vol]Ordered By: Jamie Milner on 05-22-2024 Lymphocytes (Bld) [#/Vol] 2.33 10*3/uL 0.83-4.51 [facility] Lymphocytes/100 WBC Auto (Un sp spec)Ordered By: Jamie Milner on 05-22-2024 Lymphocytes/100 WBC (Bld) 25.4 % 19-41 [facility] MCV (mean corpuscular volume ) determinationOrdered By: Jamie Milner on 05-22-2024 MCV (RBC) [Entitic vol] 89.3 fL 81-99 [facility] Mean corpuscular hemoglobin (MCH) determinationOrdered By: Jamie Milner on 05-22-2024 MCH (RBC) [Entitic mass] 30.8 pg 27.0-32.0 [facility] Mean corpuscular hemoglobin concentration (MCHC) determinationOrdered By: Jamie Milner on 05-22-2024 MCHC (RBC) [Mass/Vol] 34.4 g/dL 32-36 [facility] Mean platelet volume determi nationOrdered By: Jamie Milner on 05-22-2024 Platelet mean volume (Bld) [Entitic vol] 9.9 fL 6.2-12.0 [facility] Monocyte percentageOrdered B y: Jamie Milner on 05-22-2024 Monocytes/100 WBC (Bld) 5.7 % 0-10 [facility] Neutrophil percentageOrdered By: Jamie Milner on 05-22-2024 Neutrophils/100 WBC (Bld) 65.0 % 47-70 [facility] Nucleated red blood cell per centageOrdered By: Jamie Milner on 05-22-2024 Nucleated RBC/100 WBC (Bld) [Ratio] 0 % 0-5 [facility] Platelet countOrdered By: Chilo Milner on 05-22-2024 Platelets (Bld) [#/Vol] 285 10*3/uL 150-450 [facility] Potassium (Unsp spec) [Mass/ Vol]Ordered By: Jamie Milner on 05-22-2024 Potassium [Moles/Vol] 4.2 mmol/L 3.3-5.1 [facility] RBC Auto (Bld) [#/Vol]Ordere d By: Jamie Milner on 05-22-2024 RBC (Bld) [#/Vol] 4.78 10*6/uL 4.2-5.4 [facility] Screening total cholesterol/ high density lipoprotein (HDL) cholesterol ratioOrdered By: Jamie Milner on 05-22-2024 Cholesterol.total/Maya sterol in HDL [Mass ratio] 5.04 {ratio} [facility] Serum creatinine measurement (mass/volume)Ordered By: Jamie Milner on 05-22-2024 Creatinine [Mass/Vol] 1.43 mg/dL High 0.70-1.20 [facility] Serum globulin measurementOr dered By: Jamie Milner on 05-22-2024 Globulin (S) [Mass/Vol] 3.0 g/dL 2.2-4.2 [facility] Serum glucose measurement (m ass/volume)Ordered By: Jamie Milner on 05-22-2024 Glucose [Mass/Vol] 96 mg/dL 70-99 [facility] Serum or plasma alanine miguel otransferase (ALT) measurementOrdered By: Jamie Milner on 05-22-2024 ALT [Catalytic activity/Vol] 13 U/L <35 [facility] Serum or plasma albumin cb urement (mass/volume)Ordered By: Jamie Milner on 05-22-2024 Albumin [Mass/Vol] 4.1 g/dL 3.4-4.8 [facility] Serum or plasma albumin/glob ulin mass ratioOrdered By: Jamie Milner on 05-22-2024 Albumin/Globulin [Mass ratio] 1.3 {ratio} 0.9-2.4 [facility] Serum or plasma alkaline coty sphatase measurementOrdered By: Jamie Milner on 05-22-2024 ALP [Catalytic activity/Vol] 85 U/L 35-104 [facility] Serum or plasma calcium cb urement (mass/volume)Ordered By: Jamie Milner on 05-22-2024 Calcium [Mass/Vol] 9.9 mg/dL 7.6-11.0 [facility] Serum or plasma cholesterol in HDL measurement (mass/volume)Ordered By: Jamie Milner on 05-22-2024 Cholesterol in HDL [Mass/Vol] 56 mg/dL >40 [facility] Comment on above: National Cholesterol Education Program (NCEP) guidelines:<40 mg/dL: Low HDL-cholesterol (major risk factor for CHD)>= 60 mg/dL: High HDL-cholesterol (negative risk factor for CHD)HDL-cholesterol is affected by a number of factors, e.g. smoking, exercise, hormones, sex and age. Serum or plasma cholesterol measurement (mass/volume)Ordered By: Jamie Milner on 05-22-2024 Cholesterol [Mass/Vol] 281 mg/dL High <201 [facility] Comment on above: Cholesterol level, D esirable <200 mg/dLBorderline high cholesterol 200-239 mg/dLHigh cholesterol >=240 mg/dLRecommendations of the NCEP Adult Treatment Panel for the following risk-cutoff thresholds for the [place] population. Serum or plasma creatine kin ase activityOrdered By: Jamie Milner on 05-22-2024 CK [Catalytic activity/Vol] 88 U/L 24-195 [facility] Serum or plasma urea nitroge n measurement (mass/volume)Ordered By: Jamie Milner on 05-22-2024 Urea nitrogen [Mass/Vol] 21 mg/dL High 4-19 [facility] Sodium levelOrdered By: Jamie Milner on 05-22-2024 Sodium [Moles/Vol] 139 mmol/L 133-145 [facility] TSH DL <= 0.005 mIU/L QnOrde red By: Jamie Milner on 05-22-2024 Thyroid Stimulating Hormone (TSH) 1.490 uIU/mL 0.300-4.200 [facility] Thyroid Stim Hormone (TSH)on 05-22-2024 TSH 1.490 uIU/mL Normal 0.300-4.200 [facility] Comment on above: Performed By: #### L 500.4050, L501.3620, L100.0100, L500.4100, L501.9520, L101.9900, L501.6710 #### [facility] [address] [place], [address] Total proteinOrdered By: Destiny Milner on 05-22-2024 Protein [Mass/Vol] 7.1 g/dL 5.9-8.4 [facility] Triglycerides measurementOrd ered By: Jamie Milner on 05-22-2024 Triglyceride [Mass/Vol] 259 mg/dL High <199 [facility] Comment on above: The drugs N-Acetylcy steine and Metamizole may falsely depress this assay. Normal range: <150 mg/dLBorderline High: 150-199 mg/dLHigh: 200-499 mg/dLVery High: >500 mg/dL White blood cell (WBC) count Ordered By: Jamie Milner on 05-22-2024 WBC (Bld) [#/Vol] 9.2 10*3/uL 4.4-11.0 [facility] Basophil percentageOrdered B y: Jamie Milner on 05-23-2023 Bilirubin [Mass/Vol] 0.40 mg/dL 0.20-1.00 [facility] Comment on above: For patients on eltr ombopag therapy, use of Dimension [place] TBIL is not recommended. Chloride [Moles/Vol] 108 mmol/L 98-107 [facility] Cholesterol [Mass/Vol] 226 mg/dL <200 [facility] Comment on above: <200 mg/dL Desirable 200-240 mg/dL Borderline >240 mg/dL High Risk Glucose [Mass/Vol] 84 mg/dL 74-106 [facility] Potassium [Moles/Vol] 4.4 mmol/L 3.5-5.1 [facility] Protein [Mass/Vol] 6.9 g/dL 6.4-8.2 [facility] Sodium [Moles/Vol] 139 mmol/L 136-145 [facility] Triglyceride [Mass/Vol] 157 mg/dL <199 [facility] Comment on above: The drugs N-Acetylcy steine and Metamizole may falsely depress this assay.Serum Triglycerides Reference Interval Normal <150 mg/dL Borderline high 150 - 199 mg/dL High 200 - 499 mg/dL Very High > or = 500 mg/dL Laboratory - Chemistry and C hemistry - challengeOrdered By: Jamie Milner on 05-23-2023 Albumin/Globulin [Mass ratio] 1.0 {ratio} 0.9-2.4 [facility] ALP [Catalytic activity/Vol] 77 U/L 45-117 [facility] ALT [Catalytic activity/Vol] 36 U/L 13-56 [facility] Cholesterol in HDL [Mass/Vol] 63 mg/dL >40 [facility] Comment on above: The drugs N-Acetylcy steine and Metamizole may falsely depress this assay. Reference Range HDL <40 mg/dL Low HDL Cholesterol HDL >or= 60 mg/dL High HDL Cholesterol Cholesterol in LDL [Mass/Vol] 132 mg/dL 0-130 [facility] CO2 [Moles/Vol] 26.0 mmol/L 21.0-32.0 [facility] Globulin (S) [Mass/Vol] 3.4 g/dL 2.2-4.2 [facility] Natriuretic peptide B (Bld) [Mass/Vol] 57.9 pg/mL 0-100 [facility] Urea nitrogen/Creatinine [Mass ratio] 14.4 mg/mg 10-20 [facility] No Panel InformationOrdered By: Jamie Milner on 05-23-2023 Estimated GFR (MDRD) Amer 64 mL/min >60 [facility] Comment on above: GFR Calc Estimated GFR (MDRD) Non-Af Amer 53 mL/min >60 [facility] Comment on above: Non- GFR Calc VLDL Cholesterol 31 mg/dL 5-40 [facility] Serum or plasma calcium cb urement (mass/volume)Ordered By: Jamie Milner on 05-23-2023 Calcium [Mass/Vol] 8.9 mg/dL 8.5-10.1 [facility] Serum or plasma cortisol pau surement (mass/volume)Ordered By: Jamie Milner on 05-23-2023 Cortisol [Mass/Vol] 5.70 ug/dL 3.44-22.45 [facility] Comment on above: Adult (AM) 5.27 - 22 .45 ug/dL Adult (PM) 3.44 - 16.76 ug/dLPlease note revised CORTISOL reference range effective 2019. Serum or plasma creatinine m easurement (mass/volume)Ordered By: Jamie Milner on 05-23-2023 Creatinine [Mass/Vol] 1.11 mg/dL 0.55-1.02 [facility] Comment on above: The validity of the calculated GFR & GFRAA in patients over 70 years has not been determined. Clinical correlation is essential. Serum or plasma thyroid stim ulating hormone (TSH) measurement (units/volume)Ordered By: Jamie Milner on 05-23-2023 TSH Qn 1.49 uIU/mL 0.358-3.74 [facility] Serum or plasma urea nitroge n measurement (mass/volume)Ordered By: Jamie Milner on 05-23-2023 Urea nitrogen [Mass/Vol] 16 mg/dL 7-18 [facility] Serum or plasma uric acid me asurement (mass/volume)Ordered By: Jamie Milner on 05-23-2023 Urate [Mass/Vol] 5.7 mg/dL 2.6-6.0 [facility] Comment on above: The drugs N-Acetylcy steine and Metamizole may falsely depress this assay. Thin prep Papanicolaou smear with manual screeningOrdered By: Jamie Milner on 05-23-2023 Thin prep Papanicolaou smear with manual screening 3.5 g/dL 3.2-5.0 [facility] Thin prep Papanicolaou smear with manual screening 27 U/L 15-37 [facility] Thin prep Papanicolaou smear with manual screening 5 5-15 [facility] Absolute lymphocyte countOrd ered By: Jamie Milner on 12-06-2022 Lymphocytes Auto (Unsp spec) [#/Vol] 3.16 10*3/uL 0.83-4.51 [facility] Basophil percentageOrdered B y: Jamie Milner on 12-06-2022 Basophils/100 WBC (Bld) 1.1 % 0-1 [facility] Bilirubin [Mass/Vol] 0.50 mg/dL 0.20-1.00 [facility] Comment on above: For patients on eltr ombopag therapy, use of Dimension [place] TBIL is not recommended. Chloride [Moles/Vol] 101 mmol/L 98-107 [facility] Cholesterol [Mass/Vol] 177 mg/dL <200 [facility] Comment on above: <200 mg/dL Desirable 200-240 mg/dL Borderline >240 mg/dL High Risk Eosinophils/100 WBC (Bld) 1.6 % 0-5 [facility] Glucose [Mass/Vol] 90 mg/dL 74-106 [facility] Neutrophils (Bld) [#/Vol] 5.9 10*3/uL 2.0-7.7 [facility] Neutrophils/100 WBC (Bld) 58.2 % 47-70 [facility] Potassium [Moles/Vol] 4.3 mmol/L 3.5-5.1 [facility] Protein [Mass/Vol] 7.4 g/dL 6.4-8.2 [facility] Sodium [Moles/Vol] 135 mmol/L 136-145 [facility] Triglyceride [Mass/Vol] 231 mg/dL <199 [facility] Comment on above: The drugs N-Acetylcy steine and Metamizole may falsely depress this assay.Serum Triglycerides Reference Interval Normal <150 mg/dL Borderline high 150 - 199 mg/dL High 200 - 499 mg/dL Very High > or = 500 mg/dL WBC (Bld) [#/Vol] 10.1 10*3/uL 4.4-11.0 [facility] Blood erythrocytes count (nu mber/volume)Ordered By: Jamie Milner on 12-06-2022 RBC (Bld) [#/Vol] 5.28 10*6/uL 4.2-5.4 [facility] Blood hemoglobin measurement (mass/volume)Ordered By: Jamie Milner on 12-06-2022 Hemoglobin (Bld) [Mass/Vol] 15.8 g/dL 12.0-15.0 [facility] Blood lymphocytes/100 leukoc ytesOrdered By: Jamie Milner on 12-06-2022 Lymphocytes/100 WBC (Bld) 31.3 % 19-41 [facility] Blood monocytes/100 leukocyt esOrdered By: Jamie Milner on 12-06-2022 Monocytes/100 WBC (Bld) 7.4 % 0-10 [facility] Blood platelet mean volumeOr dered By: Jamie Milner on 12-06-2022 Platelet mean volume (Bld) [Entitic vol] 10.1 fL 6.2-12.0 [facility] Determination of erythrocyte mean corpuscular volume (MCV)Ordered By: Jamie Milner on 12-06-2022 MCV (RBC) [Entitic vol] 91.1 fL 81-99 [facility] Hematocrit Auto (Bld) [Volum e fraction]Ordered By: Jamie Milner on 12-06-2022 Hematocrit (Bld) [Volume fraction] 48.1 % 37-47 [facility] Laboratory - Chemistry and C hemistry - challengeOrdered By: Jamie Milner on 12-06-2022 ALP [Catalytic activity/Vol] 81 U/L 45-117 [facility] ALT [Catalytic activity/Vol] 25 U/L 13-56 [facility] CO2 [Moles/Vol] 31.0 mmol/L 21.0-32.0 [facility] Globulin (S) [Mass/Vol] 3.8 g/dL 2.2-4.2 [facility] Urea nitrogen/Creatinine [Mass ratio] 15.1 mg/mg 10-20 [facility] Laboratory - Hematology and Cell countsOrdered By: Jamie Milner on 12-06-2022 Erythrocyte distribution width (RBC) [Entitic vol] 44.2 fL 35.1-43.9 [facility] Erythrocyte distribution width (RBC) [Ratio] 13.2 % 11.6-14.6 [facility] Immature granulocytes/100 WBC (Bld) 0.400 % 0.0-0.9 [facility] Comment on above: IG% - Immature Granu locytes (promyelocytes, myelocytes and metamyelocytes) > 1% indicates that a LEFT SHIFT is Present. MCH (RBC) [Entitic mass] 29.9 pg 27.0-32.0 [facility] Nucleated RBC/100 WBC (Bld) [Ratio] 0 % 0-5 [facility] MCHC Auto (RBC) [Mass/Vol]Or dered By: Jamie Milner on 12-06-2022 MCHC (RBC) [Mass/Vol] 32.8 g/dL 32-36 [facility] No Panel InformationOrdered By: Jamie Milner on 12-06-2022 Estimated GFR (MDRD) Amer 42 mL/min >60 [facility] Comment on above: GFR Calc Estimated GFR (MDRD) Non-Af Amer 35 mL/min >60 [facility] Comment on above: Non- GFR Calc Parathyroid Hormone (Intact) 66.5 pg/mL 18.4-80.1 [facility] Vitamin D 25-Hydroxy 32.7 ng/mL [facility] Comment on above: Vitamin D 25(OH) Sta tus Range Deficiency <20 ng/mL (50nmol/L) Insufficiency 20 - 30 ng/mL (50 - 75 nmol/L) Sufficiency 30 - 100 ng/mL (75 - 250 nmol/L) Toxicity >100 ng/mL (>250 nmol/L) Platelets bldOrdered By: Destiny Milner on 12-06-2022 Platelets (Bld) [#/Vol] 286 10*3/uL 150-450 [facility] Serum or plasma albumin cb urement (mass/volume)Ordered By: Jamie Milner on 12-06-2022 Albumin [Mass/Vol] 3.6 g/dL 3.2-5.0 [facility] Serum or plasma albumin/glob ulin mass ratioOrdered By: Jamie Milner on 12-06-2022 Albumin/Globulin [Mass ratio] 0.9 {ratio} 0.9-2.4 [facility] Serum or plasma calcium cb urement (mass/volume)Ordered By: Jamie Milner on 12-06-2022 Calcium [Mass/Vol] 9.4 mg/dL 8.5-10.1 [facility] Serum or plasma cholesterol in HDL measurement (mass/volume)Ordered By: Jamie Milner on 12-06-2022 Cholesterol in HDL [Mass/Vol] 53 mg/dL >40 [facility] Comment on above: The drugs N-Acetylcy steine and Metamizole may falsely depress this assay. Reference Range HDL <40 mg/dL Low HDL Cholesterol HDL >or= 60 mg/dL High HDL Cholesterol Serum or plasma cholesterol in VLDL measurement (mass/volume)Ordered By: Jamie Milner on 12-06-2022 Cholesterol in VLDL [Mass/Vol] 46 mg/dL 5-40 [facility] Serum or plasma creatinine m easurement (mass/volume)Ordered By: Jamie Milner on 12-06-2022 Creatinine [Mass/Vol] 1.59 mg/dL 0.55-1.02 [facility] Comment on above: The validity of the calculated GFR & GFRAA in patients over 70 years has not been determined. Clinical correlation is essential. Serum or plasma low density lipoprotein (LDL) cholesterol measurement (mass/volume)Ordered By: Jamie Milner on 12-06-2022 Cholesterol in LDL [Mass/Vol] 78 mg/dL 0-130 [facility] Serum or plasma urea nitroge n measurement (mass/volume)Ordered By: Jamie Milner on 12-06-2022 Urea nitrogen [Mass/Vol] 24 mg/dL 7-18 [facility] Thin prep Papanicolaou smear with manual screeningOrdered By: Jamie Milner on 12-06-2022 Thin prep Papanicolaou smear with manual screening 20 U/L 15-37 [facility] Thin prep Papanicolaou smear with manual screening 3 5-15 [facility] Absolute lymphocyte counton 11-17-2021 Lymphocytes Auto (Unsp spec) [#/Vol] 3.82 10*3/uL 0.83-4.51 [facility] Work Phone: Basophil percentageon 2021 Basophils/100 WBC (Bld) 1.1 % 0-1 [facility] Work Phone: Bilirubin [Mass/Vol] 0.50 mg/dL 0.20-1.00 [facility] Work Phone: Comment on above: For patients on eltr ombopag therapy, use of Dimension [place] TBIL is not recommended. Chloride [Moles/Vol] 100 mmol/L 98-107 [facility] Work Phone: Cholesterol [Mass/Vol] 230 mg/dL <200 [facility] Work Phone: Comment on above: <200 mg/dL Desirable 200-240 mg/dL Borderline >240 mg/dL High Risk Eosinophils/100 WBC (Bld) 1.6 % 0-5 [facility] Work Phone: Glucose [Mass/Vol] 111 mg/dL 74-106 [facility] Work Phone: Comment on above: Fasting Glucose resu lt from 100 to 125 mg/dL suggests IMPAIRED HOMEOSTASIS per A.D.A. criteria. Neutrophils (Bld) [#/Vol] 7.8 10*3/uL 2.0-7.7 [facility] Work Phone: Neutrophils/100 WBC (Bld) 60.8 % 47-70 [facility] Work Phone: Potassium [Moles/Vol] 4.4 mmol/L 3.5-5.1 [facility] Work Phone: Protein [Mass/Vol] 7.8 g/dL 6.4-8.2 [facility] Work Phone: Sodium [Moles/Vol] 135 mmol/L 136-145 [facility] Work Phone: Triglyceride [Mass/Vol] 246 mg/dL <199 [facility] Work Phone: Comment on above: The drugs N-Acetylcy steine and Metamizole may falsely depress this assay.Serum Triglycerides Reference Interval Normal <150 mg/dL Borderline high 150 - 199 mg/dL High 200 - 499 mg/dL Very High > or = 500 mg/dL WBC (Bld) [#/Vol] 12.8 10*3/uL 4.4-11.0 [facility] Work Phone: Blood erythrocytes count (nu mber/volume)on 11-17-2021 RBC (Bld) [#/Vol] 5.77 10*6/uL 4.2-5.4 [facility] Work Phone: Blood hemoglobin measurement (mass/volume)on 11-17-2021 Hemoglobin (Bld) [Mass/Vol] 17.0 g/dL 12.0-15.0 [facility] Work Phone: Blood lymphocytes/100 leukoc yteson 11-17-2021 Lymphocytes/100 WBC (Bld) 29.8 % 19-41 [facility] Work Phone: Blood monocytes/100 leukocyt eson 11-17-2021 Monocytes/100 WBC (Bld) 6.0 % 0-10 [facility] Work Phone: Blood platelet mean volumeon 11-17-2021 Platelet mean volume (Bld) [Entitic vol] 10.2 fL 6.2-12.0 [facility] Work Phone: Determination of erythrocyte mean corpuscular volume (MCV)on 11-17-2021 MCV (RBC) [Entitic vol] 89.6 fL 81-99 [facility] Work Phone: Hematocrit Auto (Bld) [Volum e fraction]on 11-17-2021 Hematocrit (Bld) [Volume fraction] 51.7 % 37-47 [facility] Work Phone: Laboratory - Chemistry and C hemistry - challengeon 11-17-2021 ALP [Catalytic activity/Vol] 89 U/L 45-117 [facility] Work Phone: ALT [Catalytic activity/Vol] 25 U/L 13-56 [facility] Work Phone: CO2 [Moles/Vol] 26.0 mmol/L 21.0-32.0 [facility] Work Phone: Globulin (S) [Mass/Vol] 4.2 g/dL 2.2-4.2 [facility] Work Phone: Urea nitrogen/Creatinine [Mass ratio] 9.4 mg/mg 10-20 [facility] Work Phone: Laboratory - Hematology and Cell countson 11-17-2021 Erythrocyte distribution width (RBC) [Entitic vol] 50.7 fL 35.1-43.9 [facility] Work Phone: Erythrocyte distribution width (RBC) [Ratio] 15.7 % 11.6-14.6 [facility] Work Phone: Immature granulocytes/100 WBC (Bld) 0.700 % 0.0-0.9 [facility] Work Phone: Comment on above: IG% - Immature Granu locytes (promyelocytes, myelocytes and metamyelocytes) > 1% indicates that a LEFT SHIFT is Present. MCH (RBC) [Entitic mass] 29.5 pg 27.0-32.0 [facility] Work Phone: Nucleated RBC/100 WBC (Bld) [Ratio] 0 % 0-5 [facility] Work Phone: MCHC Auto (RBC) [Mass/Vol]on 11-17-2021 MCHC (RBC) [Mass/Vol] 32.9 g/dL 32-36 [facility] Work Phone: No Panel Informationon 11-17 Estimated GFR (MDRD) Amer 43 mL/min >60 [facility] Work Phone: Comment on above: GFR Calc Estimated GFR (MDRD) Non-Af Amer 35 mL/min >60 [facility] Work Phone: Comment on above: Non- GFR Calc Platelets bldon 11-17-2021 Platelets (Bld) [#/Vol] 377 10*3/uL 150-450 [facility] Work Phone: Serum or plasma albumin cb urement (mass/volume)on 11-17-2021 Albumin [Mass/Vol] 3.6 g/dL 3.2-5.0 [facility] Work Phone: Serum or plasma albumin/glob ulin mass ratioon 11-17-2021 Albumin/Globulin [Mass ratio] 0.9 {ratio} 0.9-2.4 [facility] Work Phone: Serum or plasma calcium cb urement (mass/volume)on 11-17-2021 Calcium [Mass/Vol] 9.7 mg/dL 8.5-10.1 [facility] Work Phone: Serum or plasma cholesterol in HDL measurement (mass/volume)on 11-17-2021 Cholesterol in HDL [Mass/Vol] 50 mg/dL >40 [facility] Work Phone: Comment on above: The drugs N-Acetylcy steine and Metamizole may falsely depress this assay. Reference Range HDL <40 mg/dL Low HDL Cholesterol HDL >or= 60 mg/dL High HDL Cholesterol Serum or plasma cholesterol in VLDL measurement (mass/volume)on 11-17-2021 Cholesterol in VLDL [Mass/Vol] 49 mg/dL 5-40 [facility] Work Phone: Serum or plasma creatinine m easurement (mass/volume)on 11-17-2021 Creatinine [Mass/Vol] 1.59 mg/dL 0.55-1.02 [facility] Work Phone: Comment on above: The validity of the calculated GFR & GFRAA in patients over 70 years has not been determined. Clinical correlation is essential. Serum or plasma low density lipoprotein (LDL) cholesterol measurement (mass/volume)on 11-17-2021 Cholesterol in LDL [Mass/Vol] 131 mg/dL 0-130 [facility] Work Phone: Serum or plasma urea nitroge n measurement (mass/volume)on 11-17-2021 Urea nitrogen [Mass/Vol] 15 mg/dL 7-18 [facility] Work Phone: Thin prep Papanicolaou smear with manual screeningon 11-17-2021 Thin prep Papanicolaou smear with manual screening 18 U/L 15-37 [facility] Work Phone: Thin prep Papanicolaou smear with manual screening 9 5-15 [facility] Work Phone: Absolute lymphocyte counton 08-05-2021 Lymphocytes Auto (Unsp spec) [#/Vol] 0.69 10*3/uL 0.83-4.51 [facility] Work Phone: Basophil percentageon 2021 Basophil percentage 0-5 SEEN /hpf 0-5 [facility] Work Phone: Basophils/100 WBC (Bld) 0.9 % 0-1 [facility] Work Phone: Chloride [Moles/Vol] 104 mmol/L 98-[address] [facility] Work Phone: Eosinophils/100 WBC (Bld) 0.5 % 0-5 [facility] Work Phone: Glucose [Mass/Vol] 91 mg/dL 74-106 [facility] Work Phone: Neutrophils (Bld) [#/Vol] 4.2 10*3/uL 2.0-7.7 [facility] Work Phone: [phone] Neutrophils/100 WBC (Bld) 74.2 % 47-70 [facility] Work Phone: Potassium [Moles/Vol] 3.9 mmol/L 3.5-5.1 [facility] Work Phone: Sodium [Moles/Vol] 137 mmol/L 136-145 [facility] Work Phone: [phone] WBC (Bld) [#/Vol] 5.6 10*3/uL 4.4-11.0 [facility] Work Phone: Bilirubin Test strip Ql (U)o n 08-05-2021 Bilirubin Ql (U) Negative Negative [facility] Work Phone: Blood erythrocytes count (nu mber/volume)on 08-05-2021 RBC (Bld) [#/Vol] 5.21 10*6/uL 4.2-5.4 [facility] Work [facility]: Blood hemoglobin measurement (mass/volume)on 08-05-2021 Hemoglobin (Bld) [Mass/Vol] 15.3 g/dL 12.0-15.0 [facility] Work Phone: [phone] Blood lymphocytes/100 leukoc yteson 08-05-2021 Lymphocytes/100 WBC (Bld) 12.3 % 19-41 [facility] Work Phone: [phone] Blood monocytes/100 leukocyt eson 08-05-2021 Monocytes/100 WBC (Bld) 11.4 % 0-10 [facility] Work Phone: Blood platelet mean volumeon 08-05-2021 Platelet mean volume (Bld) [Entitic vol] 10.1 fL 6.2-12.0 [facility] Work Phone: Determination of erythrocyte mean corpuscular volume (MCV)on 08-05-2021 MCV (RBC) [Entitic vol] 87.9 fL 81-99 [facility] Work Phone: Hematocrit Auto (Bld) [Volum e fraction]on 08-05-2021 Hematocrit (Bld) [Volume fraction] 45.8 % 37-47 [facility] Work Phone: Ketones Test strip Ql (U)on 08-05-2021 Ketones Ql (U) Negative Negative [facility] Work Phone: Laboratory - Chemistry and C hemistry - challengeon 08-05-2021 CO2 [Moles/Vol] 28.0 mmol/L 21.0-32.0 [facility] Work Phone: Urea nitrogen/Creatinine [Mass ratio] 7.6 mg/mg 10-20 [facility] Work Phone: Laboratory - Hematology and Cell countson 08-05-2021 Erythrocyte distribution width (RBC) [Entitic vol] 43.2 fL 35.1-43.9 [facility] Work Phone: Erythrocyte distribution width (RBC) [Ratio] 13.3 % 11.6-14.6 [facility] Work Phone: Immature granulocytes/100 WBC (Bld) 0.700 % 0.0-0.9 [facility] Work Phone: Comment on above: IG% - Immature Granu locytes (promyelocytes, myelocytes and metamyelocytes) > 1% indicates that a LEFT SHIFT is Present. MCH (RBC) [Entitic mass] 29.4 pg 27.0-32.0 [facility] Work Phone: Nucleated RBC/100 WBC (Bld) [Ratio] 0 % 0-5 [facility] Work Phone: MCHC Auto (RBC) [Mass/Vol]on 08-05-2021 MCHC (RBC) [Mass/Vol] 33.4 g/dL 32-36 [facility] Work Phone: Mucus LM Ql (Urine sed)on Mucus Ql (Urine sed) 0 SEEN /hpf [facility] Work Phone: Nitrite Test strip Ql (U)on 08-05-2021 Nitrite Ql (U) Negative Negative [facility] Work Phone: No Panel Informationon 08-05 Troponin I High Sensitivity 5 pg/mL 3.0-54.0 [facility] Work Phone: Comment on above: Please Note: New Anu t Units and Gender Specific Reference Ranges. For more information see Policy Stat Procedure [place] High Sensitivity Troponin (TNIH) and attachments. Estimated Creatinine Clearance Calc 43.29 ml/min [facility] Work Phone: Estimated GFR (MDRD) Amer 53 mL/min >60 [facility] Work Phone: Comment on above: GFR Calc Estimated GFR (MDRD) Non-Af Amer 44 mL/min >60 [facility] Work Phone: Comment on above: Non- GFR Calc Platelets bldon 08-05-2021 Platelets (Bld) [#/Vol] 201 10*3/uL 150-450 [facility] Work Phone: Protein Test strip Ql (U)on 08-05-2021 Protein Ql (U) 15 mg/dl Negative [facility] Work Phone: Serum or plasma calcium cb urement (mass/volume)on 08-05-2021 Calcium [Mass/Vol] 9.1 mg/dL 8.5-10.1 [facility] Work Phone: Serum or plasma creatinine m easurement (mass/volume)on 08-05-2021 Creatinine [Mass/Vol] 1.31 mg/dL 0.55-1.02 [facility] Work Phone: Comment on above: The validity of the calculated GFR & GFRAA in patients over 70 years has not been determined. Clinical correlation is essential. Serum or plasma urea nitroge n measurement (mass/volume)on 08-05-2021 Urea nitrogen [Mass/Vol] 10 mg/dL 7-18 [facility] Work Phone: Squamous epithelial cells de tection in urine sediment by light microscopyon 08-05-2021 Epithelial cells.squamous LM Ql (Urine sed) 0-5 SEEN /hpf 5-10 [facility] Work Phone: Thin prep Papanicolaou smear with manual screeningon 08-05-2021 Thin prep Papanicolaou smear with manual screening 5 5-15 [facility] Work Phone: Urine blood detectionon 06-3 0-2021 RBC Ql (U) 25 /ul Negative [facility] Work Phone: RBC Ql (U) 0-5 SEEN /hpf 0-5 [facility] Work Phone: Urine clarityon 08-05-2021 Clarity (U) Sl. Cloudy Clear [facility] Work Phone: Urine color determinationon 08-05-2021 Color (U) Yellow Yellow [facility] Work Phone: Urine glucose detectionon Glucose Ql (U) Normal mg/dl Normal [facility] Work Phone: Urine leukocyte esterase det ection by dipstickon 08-05-2021 Leukocyte esterase Test strip Ql (U) 25 /ul Negative [facility] Work Phone: Urine pHon 08-05-2021 pH (U) 6.0 [pH] 5.0 - 8.0 [facility] Work Phone: Urine sediment bacteria coun t by microscopy (number/high power field)on 08-05-2021 Bacteria LM.HPF (Urine sed) [#/Area] 1 /[HPF] None Seen [facility] Work Phone: Urine specific gravity measu rementon 08-05-2021 Specific gravity (U) [Rel density] 1.015 1.002-1.030 [facility] Work Phone: Urobilinogen Auto test strip Ql (U)on 08-05-2021 Urobilinogen Ql (U) Normal mg/dl Normal [facility] Work Phone: CNOVon 05-06-2018 CNOV Office Visit ([facility] ) -------- JAROCHO KELLY ([id number]) 1960 F Date Time Provider Department 05/06/18 11:15 AM WILMAN DUFFY) [facility] During your visit today, we recorded the following information about you: Temperature Pulse Respiration Blood pressure 98.7 degrees 77/minute 18/minute 102/60 Weight 108.4 kg Wilman Duffy PA-C 05/06/2018 12:17 PM Signed Subjective HPI Patient presents with cough congestion and wheezing over the past 3 days. She denies any fever. She does have a history of COPD and still smokes about half a pack a day. She states her ribs have been hurting from coughing so much in its keeping her up at night. She's felt mildly short of breath with the wheezing. There've been multiple ill people in the home as well. Review of Systems Constitutional: Negative for chills and fever. HENT: Positive for congestion. Negative for ear pain and sore throat. Eyes: Negative. Respiratory: Positive for cough, sputum production, shortness of breath and wheezing. Cardiovascular: Rib pain with cough Gastrointestinal: Positive for nausea. Negative for abdominal pain, diarrhea and vomiting. Genitourinary: Negative. All other systems reviewed and are negative. No past medical history on file. Current Outpatient Medications: clopidogrel (PLAVIX) 75 mg tablet Take 75 mg by mouth once daily. Disp: Rfl: citalopram (CELEXA) 40 mg tablet Take 40 mg by mouth once daily. Disp: Rfl: LOSARTAN-HYDROCHLOROTHIA ZIDE ORAL Take 100 mg by mouth. Disp: Rfl: rosuvastatin (CRESTOR) 10 mg tablet Take 10 mg by mouth once daily. Disp: Rfl: buPROPion HCl (WELLBUTRIN SR) 200 mg 12 hr tablet Take 200 mg by mouth twice daily. Disp: Rfl: METOPROLOL TARTRATE ORAL Take 25 mg by mouth. Disp: Rfl: ALPRAZolam (XANAX) 0.5 mg tablet Take 0.5 mg by mouth at bedtime as needed. Disp: Rfl: LANSOPRAZOLE ORAL Take 15 mg by mouth. Disp: Rfl: aspirin, enteric coated (ASPIRIN, ENTERIC COATED) 81 mg EC tablet Take 81 mg by mouth once daily. Disp: Rfl: cholecalciferol, vitamin D3, (VITAMIN D3 ORAL) Take by mouth. Disp: Rfl: docusate sodium (STOOL SOFTENER) 100 mg capsule Take 100 mg by mouth twice daily. Disp: Rfl: doxycycline (VIBRA-TABS) 100 mg tablet Take 1 tablet by mouth twice daily for 10 days. Disp: 20 tablet Rfl: 0 benzonatate (TESSALON PERLES) 100 mg capsule Take 2 capsules by mouth three times daily as needed. Disp: 30 capsule Rfl: 0 guaiFENesin (MUCINEX) 600 mg 12 hr tablet Take 2 tablets by mouth twice daily. Disp: 30 tablet Rfl: 0 predniSONE (DELTASONE) 20 mg tablet Take 2 tablets by mouth once daily for 5 days. Disp: 10 tablet Rfl: 0 Current Facility-Administered Medications: albuterol 2.5 mg /3 mL (0.083 %) 2.5 mg (PROVENTIL) 2.5 mg INHALATION ONCE Wilman R (Pa) Athy No past surgical history on file. No family history on file. Social History Tobacco Use - Smoking status: Current Every Day Smoker - Smokeless tobacco: Never Used Substance Use Topics - Alcohol use: Not on file - Drug use: Not on file BP 102/60 Pulse 77 Temp 37.1 ?C (98.7 ?F) (Tympanic) Resp 18 Wt 108.4 kg (239 lb) SpO2 98% Objective Physical Exam Constitutional: She is oriented to person, place, and time and well-developed, well-nourished, and in no distress. HENT: Head: Normocephalic and atraumatic. Right Ear: Tympanic membrane, external ear and ear canal normal. Left Ear: Tympanic membrane, external ear and ear canal normal. Nose: Rhinorrhea present. Mouth/Throat: Uvula is midline, oropharynx is clear and moist and mucous membranes are normal. Neck: Normal range of motion. Neck supple. Cardiovascular: Normal rate, regular rhythm and normal heart sounds. Pulmonary/Chest: Effort normal. Mild diffuse expiratory wheeze. Lymphadenopathy: She has no cervical adenopathy. Neurological: She is alert and oriented to person, place, and time. Skin: Skin is warm and dry. Psychiatric: Affect and judgment normal. Nursing note and vitals reviewed. ASSESSMENT/PLAN: 1. COPD with exacerbation (HCC) - ICD9: 491.21, ICD10: J44.1 Patient treated with prednisone, Mucinex, Tessalon and doxycycline. Instructed to use her albuterol inhaler at home as well. Given a breathing treatment here. She is oxygenating well at 98%. In no respiratory distress. Follow-up with PCP if not better in the next 1-2 weeks. - ALBUTEROL SULFATE 2.5 MG/3 ML (0.083 %) SOLUTION FOR NEBULIZATION MIKIE Gee Ma 05/06/2018 1:06 PM Signed 2.5 solution aerosol treatment given per doctor's orders. Patient tolerated well. Referring Provider: SELF [200] Allergies As of Date: 05/06/2018 (No Known Allergies) Date Reviewed: 05/06/2018 Reviewed by: Neida Bosch LPN - Fully Assessed Reason for Visit: Cough [28] Cmt: chest congestion AND sob X3 days Primary Visit Diagnosis:COPD with exacerbation (HCC) [J44.1] Order(s):doxycycline (VIBRA-TABS) 100 mg tabletTake 1 tablet by mouth twice daily for 10 days.Disp: 20 tabletRfl: 0 benzonatate (TESSALON PERLES) 100 mg capsuleTake 2 capsules by mouth three times daily as needed.Disp: 30 capsuleRfl: 0 guaiFENesin (MUCINEX) 600 mg 12 hr tabletTake 2 tablets by mouth twice daily.Disp: 30 tabletRfl: 0 predniSONE (DELTASONE) 20 mg tabletTake 2 tablets by mouth once daily for 5 days.Disp: 10 tabletRfl: 0 [] albuterol 2.5 mg /3 mL (0.083 %) 2.5 mg (PROVENTIL)Disp: Rfl: Prescriptions as of 05/06/2018 Sig: CLOPIDOGREL 75 MG TABLET Take 75 mg by mouth once luci* CITALOPRAM 40 MG TABLET Take 40 mg by mouth once luci* LOSARTAN-HYDROCHLOROTHIA ZIDE * Take 100 mg by mouth. ROSUVASTATIN 10 MG TABLET Take 10 mg by mouth once luci* BUPROPION HCL SR 200 MG TABLE* Take 200 mg by mouth twice da* METOPROLOL TARTRATE ORAL Take 25 mg by mouth. ALPRAZOLAM 0.5 MG TABLET Take 0.5 mg by mouth at bedti* LANSOPRAZOLE ORAL Take 15 mg by mouth. ASPIRIN 81 MG TABLET,DELAYED * Take 81 mg by mouth once luci* VITAMIN D3 ORAL Take by mouth. DOCUSATE SODIUM 100 MG CAPSULE Take 100 mg by mouth twice da* DOXYCYCLINE HYCLATE 100 MG TA* Take 1 tablet by mouth twice * BENZONATATE 100 MG CAPSULE Take 2 capsules by mouth thre* GUAIFENESIN ER 600 MG TABLET,* Take 2 tablets by mouth twice* PREDNISONE 20 MG TABLET Take 2 tablets by mouth once * Problem List As Of Date: 05/06/2018 (None) Visit Notes: >> Tomasa Matos May 06, 2018 1:06 PM Status: Signed 2.5 solution aerosol treatment given per doctor's orders. Patient tolerated well. Prescriptions ordered this encounter Disp Refills Start End DOXYCYCLINE HYCLATE 100 MG TABLET 20 t* 0 05/06/2018 05/16/2018 Route: ORAL Sig: Take 1 tablet by mouth twice daily for 10 days. BENZONATATE 100 MG CAPSULE 30 c* 0 05/06/2018 Route: ORAL Sig: Take 2 capsules by mouth three times daily as needed. GUAIFENESIN ER 600 MG TABLET, EXTEND* 30 t* 0 05/06/2018 Route: ORAL Sig: Take 2 tablets by mouth twice daily. PREDNISONE 20 MG TABLET 10 t* 0 05/06/2018 05/11/2018 Route: ORAL Sig: Take 2 tablets by mouth once daily for 5 days. ALBUTEROL SULFATE 2.5 MG/3 ML (0.083* 05/06/2018 05/06/2018 Route: INHALATION Encounter Status:Closed by WILMAN DUFFY PA-C on 05/06/18 Normal [facility] PROGRESSon 05-06-2018 Protein mass conc HNO ID: [id number] Author: Wilman Duffy (Pa) Service: ? Author Type: Physician Plumber Supervisor Type: Progress Notes Filed: 05/06/2018 12:17 PM Note Text: Subjective HPI Patient presents with cough congestion and wheezing over the past 3 days. She denies any fever. She does have a history of COPD and still smokes about half a pack a day. She states her ribs have been hurting from coughing so much in its keeping her up at night. She's felt mildly short of breath with the wheezing. There've been multiple ill people in the home as well. Review of Systems Constitutional: Negative for chills and fever. HENT: Positive for congestion. Negative for ear pain and sore throat. Eyes: Negative. Respiratory: Positive for cough, sputum production, shortness of breath and wheezing. Cardiovascular: Rib pain with cough Gastrointestinal: Positive for nausea. Negative for abdominal pain, diarrhea and vomiting. Genitourinary: Negative. All other systems reviewed and are negative. No past medical history on file. Current Outpatient Medications: clopidogrel (PLAVIX) 75 mg tablet Take 75 mg by mouth once daily. Disp: Rfl: citalopram (CELEXA) 40 mg tablet Take 40 mg by mouth once daily. Disp: Rfl: LOSARTAN-HYDROCHLOROTHIA ZIDE ORAL Take 100 mg by mouth. Disp: Rfl: rosuvastatin (CRESTOR) 10 mg tablet Take 10 mg by mouth once daily. Disp: Rfl: buPROPion HCl (WELLBUTRIN SR) 200 mg 12 hr tablet Take 200 mg by mouth twice daily. Disp: Rfl: METOPROLOL TARTRATE ORAL Take 25 mg by mouth. Disp: Rfl: ALPRAZolam (XANAX) 0.5 mg tablet Take 0.5 mg by mouth at bedtime as needed. Disp: Rfl: LANSOPRAZOLE ORAL Take 15 mg by mouth. Disp: Rfl: aspirin, enteric coated (ASPIRIN, ENTERIC COATED) 81 mg EC tablet Take 81 mg by mouth once daily. Disp: Rfl: cholecalciferol, vitamin D3, (VITAMIN D3 ORAL) Take by mouth. Disp: Rfl: docusate sodium (STOOL SOFTENER) 100 mg capsule Take 100 mg by mouth twice daily. Disp: Rfl: doxycycline (VIBRA-TABS) 100 mg tablet Take 1 tablet by mouth twice daily for 10 days. Disp: 20 tablet Rfl: 0 benzonatate (TESSALON PERLES) 100 mg capsule Take 2 capsules by mouth three times daily as needed. Disp: 30 capsule Rfl: 0 guaiFENesin (MUCINEX) 600 mg 12 hr tablet Take 2 tablets by mouth twice daily. Disp: 30 tablet Rfl: 0 predniSONE (DELTASONE) 20 mg tablet Take 2 tablets by mouth once daily for 5 days. Disp: 10 tablet Rfl: 0 Current Facility-Administered Medications: albuterol 2.5 mg /3 mL (0.083 %) 2.5 mg (PROVENTIL) 2.5 mg INHALATION ONCE Wilman Duffy (Pa) No past surgical history on file. No family history on file. Social History Tobacco Use - Smoking status: Current Every Day Smoker - Smokeless tobacco: Never Used Substance Use Topics - Alcohol use: Not on file - Drug use: Not on file BP 102/60 Pulse 77 Temp 37.1 ?C (98.7 ?F) (Tympanic) Resp 18 Wt 108.4 kg (239 lb) SpO2 98% Objective Physical Exam Constitutional: She is oriented to person, place, and time and well-developed, well-nourished, and in no distress. HENT: Head: Normocephalic and atraumatic. Right Ear: Tympanic membrane, external ear and ear canal normal. Left Ear: Tympanic membrane, external ear and ear canal normal. Nose: Rhinorrhea present. Mouth/Throat: Uvula is midline, oropharynx is clear and moist and mucous membranes are normal. Neck: Normal range of motion. Neck supple. Cardiovascular: Normal rate, regular rhythm and normal heart sounds. Pulmonary/Chest: Effort normal. Mild diffuse expiratory wheeze. Lymphadenopathy: She has no cervical adenopathy. Neurological: She is alert and oriented to person, place, and time. Skin: Skin is warm and dry. Psychiatric: Affect and judgment normal. Nursing note and vitals reviewed. ASSESSMENT/PLAN: 1. COPD with exacerbation (HCC) - ICD9: 491.21, ICD10: J44.1 Patient treated with prednisone, Mucinex, Tessalon and doxycycline. Instructed to use her albuterol inhaler at home as well. Given a breathing treatment here. She is oxygenating well at 98%. In no respiratory distress. Follow-up with PCP if not better in the next 1-2 weeks. - ALBUTEROL SULFATE 2.5 MG/3 ML (0.083 %) SOLUTION FOR NEBULIZATION Wilman Duffy PA-C Normal [facility] Metabolic Panelon 01-21 Calcium 8.8 mg/dL Normal 8.4-10.2 [facility] Comment on above: Performed By: #### H ERIN, [facility] ####[address] [place] [address] Alanine aminotransferase (ALT) 55 U/L Normal 13-69 [facility] Comment on above: Performed By: #### H MITCHEL CMP3 ####[address] [place] [address] Alkaline phosphatase (ALP) 81 U/L Normal 38-126 [facility] Comment on above: Performed By: #### H MITCHEL CMP3 ####[address] [place] [address] Anion gap 7 mmol/L Normal [facility] Comment on above: Performed By: #### H MITCHEL CMP3 ####[address] [place] [address] Aspartate aminotransferase (AST) 48 U/L High 15-46 [facility] Comment on above: Performed By: #### H MITCHEL CMP3 ####[address] [place] [address] Bilirubin (total) 0.3 mg/dL Normal 0.2-1.3 [facility] Comment on above: Performed By: #### H MITCHEL CMP3 ####[address] [place] [address] CO2 22 mmol/L Normal 22-30 [facility] Comment on above: Performed By: #### H MITCHEL, CMP3 ####[address] [place] [address] Creatinine 0.91 mg/dL Normal 0.52-1.25 [facility] Comment on above: Performed By: #### H MITCHEL CMP3 ####[address] [place] [address] eGFR (black) mL/min/{1.73_m2} Normal >60 [facility] Comment on above: Performed By: #### H EMDF, CMP3 ####[address] [place] [address] eGFR (non-black) mL/min/{1.73_m2} Normal >60 [facility] Comment on above: Result Comment: Sour ce- MDRD equation with creatinine calibration to IDMS(NKDEP)eGFR not recommended for drug dose adjustment Performed By: #### H MITCHEL CMP3 ####[address] [place] [address] Glucose mass conc 150 mg/dL High 70-100 [facility] Comment on above: Performed By: #### H MITCHEL CMP3 ####[address] [place] [address] Protein 6.5 g/dL Normal 6.3-8.2 [facility] Comment on above: Performed By: #### H MITCHEL CMP3 ####[address] [place] [address] Urea nitrogen 14 mg/dL Normal 7-20 [facility] Comment on above: Performed By: #### H MITCHEL CMP3 ####[address] [place] [address] Potassium molar conc 4.5 mmol/L Normal 3.5-5.1 [facility] Comment on above: Performed By: #### H MITCHEL CMP3 ####[address] [place] [address] Albumin 3.5 g/dL Normal 3.5-5.0 [facility] Comment on above: Performed By: #### H MITCHEL CMP3 ####[address] [place] [address] Sodium 138 mmol/L Normal 137-145 [facility] Comment on above: Performed By: #### H MITCHEL CMP3 ####[address] [place] [address] Chloride 108 mmol/L High 98-107 [facility] Comment on above: Performed By: #### H MITCHEL CMP3 ####[address] [place] [address] Hemogram w/ Autodiffon 01-21 Abs Baso Cnt 0.0 10*3/uL Normal 0.0-0.2 [facility] Comment on above: Performed By: #### Chreelle GRULLON CMP3 ####[address] [place] [address] Basophils/100 WBC Auto (Bld) 0.0 % Normal [facility] Comment on above: Performed By: #### H EMDF CMP3 ####[address] [place] [address] Eosinophils 0.0 10*3/uL Normal 0.0-0.5 [facility] Comment on above: Performed By: #### H EMDF, CMP3 ####[address] [place] [address] Eosinophils/100 leukocytes 0.0 % Normal [facility] Comment on above: Performed By: #### H EMDF CMP3 ####[address] [place] [address] Erythrocyte distribution width Auto Ratio (RBC) 14.4 % Normal 11.5-14.5 [facility] Comment on above: Performed By: #### H EMDF, CMP3 ####[address] [address] Erythrocytes (RBC) 4.11 10*6/uL Normal 3.80-5.20 [facility] Comment on above: Performed By: #### H EMDF CMP3 ####[address] [place] [address] Granulocytes/100 WBC (Bld) 91.7 % Normal [facility] Comment on above: Performed By: #### H EMDF, CMP3 ####[address] [address] Hematocrit (HCT) 38.1 % Normal 35.0-47.0 [facility] Comment on above: Performed By: #### H EMDF, CMP3 ####[address] [place] [address] Hemoglobin mass conc (Bld) 12.6 g/dL Normal 11.7-16.0 [facility] Comment on above: Performed By: #### H EMDF, CMP3 ####[address] [place] [address] Lymphocytes 0.9 10*3/uL Low 1.0-4.3 [facility] Comment on above: Performed By: #### H EMDF CMP3 ####[address] [place] [address] Lymphocytes/100 leukocytes 5.8 % Normal [facility] Comment on above: Performed By: #### H MITCHEL CMP3 ####[address] [place] [address] MCH 30.7 pg Normal 26.0-34.0 [facility] Comment on above: Performed By: #### H MITCHEL CMP3 ####[address] [place] [address] MCHC mass conc (RBC) 33.2 % Normal 32.0-36.0 [facility] Comment on above: Performed By: #### H MITCHEL CMP3 ####[address] [place] [address] MCV 92.6 fL Normal 79.0-98.0 [facility] Comment on above: Performed By: #### H MITCHEL CMP3 ####[address] [place] [address] Monocytes 0.4 10*3/uL Normal 0.0-0.8 [facility] Comment on above: Performed By: #### H MITCHEL CMP3 ####[address] [place] [address] Monocytes/100 leukocytes 2.5 % Normal [facility] Comment on above: Performed By: #### H MITCHEL CMP3 ####[address] [place] [address] Neutrophils 13.8 10*3/uL High 1.8-7.0 [facility] Comment on above: Performed By: #### H EMDRan CMP3 ####[address] [place] [address] Platelet mean volume (PMV) 9.1 fL Normal 7.4-10.4 [facility] Comment on above: Performed By: #### H EMDRan CMP3 ####[address] [place] [address] Platelets 200 10*3/uL Normal 140-440 [facility] Comment on above: Performed By: #### H EMDF, CMP3 ####[facility] [place] [address] WBC (Leukocytes) 15.0 10*3/uL High 3.6-10.7 [facility] Comment on above: Performed By: #### H MITCHEL, CMP3 ####[address] [place] [address] Surgical Pathologyon 017 Surgical Pathology [id number] [facility] PATHOLOGY AND LABORATORY MEDICINE [address] [place] [address] FINAL SURGICAL PATHOLOGY REPORT NAME: SHERRIJAROCHO AMAYA Jenniffer N [id number].O.B.: 1960 56 Y F BILLING NO.: [id number]: [id number] B PROCEDURE 01/20/2017 DATE:SURGEON: ARYA GONGORA M.D. RECEIVED 01/20/2017 DATE:ATTENDING: ARYA GONGORA M.D. REPORT DATE: 01/25/2017 COPIES TO: ___DIAGNOSIS:ADRENAL GLAND, LEFT, ADRENALECTOMY - PARTIALLY CYSTIC ADRENAL GLANDWITH VAGUE CORTICAL NODULARITY SUGGESTIVE OF NODULAR CORTICALHYPERPLASIAComme nt: The entire specimen was submitted for microscopicexamination. A discrete circumscribed mass-forming lesion is notidentified.JAW/JAWInt radepartmental Consultation: SEAN DA SILVA M.D.; ANDREW HERNANDEZ M.D. ____CLINICAL INFORMATION: Left adrenal mass, hirsutismSPECIMEN: ADRENAL GLAND(S) GROSS DESCRIPTION:Left adrenal glandReceived in formalin is a piece of yellow-caputo, fatty tissue measuring 7x 3 x 2 cm. This specimen weighs 23 grams. The surface of the entirespecimen is inked in black. Sectioning through reveals a cystic areawithin the adrenal measuring 1.9 cm in greatest dimension by 1 x 3.5cm. [employer] Ax Developer sections are submitted in four cassettes. Theremainder of the entire specimen is submitted in cassettes 5 - 16.(bits ss, 16) LH3/CALDisclaimer: The following statement applies to allimmunohistochemistry, in situ hybridization, molecular studies, andimmunofluorescence testing.The use of one or more reagents in the above tests is regulated as ananalyte specific reagent (ASR). These tests were developed and theirperformance characteristics determined by the clinical laboratories [facility]. They have not been cleared by the US Food and DrugAdministration (FDA). The FDA has determined that such clearance orapproval is not necessary.All the above immunostains were performed on paraffin embedded tissue.Appropriate positive and negative controls (where applicable) were runin parallel with the patient's specimen; these controls showed expectedstaining pattern, with acceptable intensity of staining.Immunohistochem ical assays have not been validated on decalcifiedtissues. Results should be interpreted with caution given the raisedpossibility of false negativity on decalcified specimens.Professional Performing Location: [address] [address]. DEPARTMENT OF PATHOLOGY AND LABORATORY MEDICINE [place], [place] [address] Normal [facility] Comment on above: Performed By: #### S UR ####Performing Lab is in report Basic Metabolic Panelon 12-0 Anion gap 9 mmol/L Normal [facility] Comment on above: Performed By: #### H BON BMP3 ####[address] [place] [address] Creatinine 1.45 mg/dL High 0.55-1.40 [facility] Comment on above: Performed By: #### H BON BMP3 ####[address] [place] [address] eGFR (black) 45.4 mL/min/{1.73_m2} Normal >60 [facility] Comment on above: Performed By: #### H BON BMP3 ####[address] [place] [address] eGFR (non-black) 37.5 mL/min/{1.73_m2} Normal >60 [facility] Comment on above: Result Comment: Sour ce- MDRD equation with creatinine calibration to IDMS(NKDEP)eGFR not recommended for drug dose adjustment Performed By: #### H BON BMP3 ####[address] [place] [address] CO2 27 mmol/L Normal 21-32 [facility] Comment on above: Performed By: #### H BON BMP3 ####[address] [place] [address] Glucose mass conc 84 mg/dL Normal 70-100 [facility] Comment on above: Performed By: #### H BON BMP3 ####[address] [place] [address] Urea nitrogen 18 mg/dL Normal 7-25 [facility] Comment on above: Performed By: #### H TERRYCT, BMP3 ####[address] [place] [address] Calcium 9.4 mg/dL Normal 8.2-10.1 [facility] Comment on above: Performed By: #### H GHCT, BMP3 ####[address] [place] [address] Chloride 103 mmol/L Normal 98-109 [facility] Comment on above: Performed By: #### H GHCT, BMP3 ####[address] [address] Potassium molar conc 4.1 mmol/L Normal 3.5-5.1 [facility] Comment on above: Performed By: #### H GHCT, BMP3 ####[address] [place] [address] Sodium 139 mmol/L Normal 135-145 [facility] Comment on above: Performed By: #### H GHCT, BMP3 ####[address] [place] [address] Hemoglobinon 01-13-2017 Hematocrit (HCT) 43.3 % Normal 35.0-47.0 [facility] Comment on above: Performed By: #### H GHCT, BMP3 ####[address] [place] [address] Hemoglobin mass conc (Bld) 14.3 g/dL Normal 11.7-16.0 [facility] Comment on above: Performed By: #### H GHCT, BMP3 ####[address] [place] [address] TS GELon 01-13-2017 TS GEL PATIENT: ROBIN REYES LOC: SELLERS BILL# : [id number] : 1960 SEX: F AGE: 56ORDERED BY: ANGELIQUE Baltazar ORDERED : 01/13/2017 11:53 COLLECTED: 01/13/2017 12:14ORDER : [id number] RECEIVED : 01/13/2017 15:12 TEST NAME RESULT UNITS RANGES ABN FL STABO Group A FRh, Gel POS FAntibody Screen Gel NEG F ------ Normal [facility] Comment on above: Performed By: #### T SGL ####[address] [address] Clinical Lists Update: Prelo quality facilitator 04-08-2016 Left ventricular Ejection fraction 65 % [facility] Work Phone: [phone] Lab Report: CORTISOL SERUMon 02-10-2016 Cortisol [Mass/Vol] 0.80 ug/dL Low 3.09-22.40 [facility] Work Phone: [phone] Lab Report: Lipid Profileon 02-06-2016 Cholesterol [Mass/Vol] 248 mg/dL High 200 [facility] Work Phone: [phone] Cholesterol in HDL [Mass/Vol] 61 mg/dL [facility] Work Phone: [phone] Cholesterol in LDL [Mass/Vol] 165 mg/dL High 0-130 [facility] Work Phone: [phone] Lipoprotein.pre-beta [Mass/Vol] 22 mg/dL 5-40 [facility] Work Phone: [phone] Triglyceride [Mass/Vol] 112 mg/dL [facility] Work Phone: [phone] Lab Report: Liver Profileon 02-06-2016 Albumin [Mass/Vol] 3.4 g/dL 3.4-5.0 [facility] Work Phone: [phone] ALP (Bld) [Catalytic activity/Vol] 102 U/L 45-117 [facility] Work Phone: [phone] ALT [Catalytic activity/Vol] 43 U/L 12-78 [facility] Work Phone: [phone] AST [Catalytic activity/Vol] 22 U/L 15-37 [facility] Work Phone: [phone] Bilirubin [Mass/Vol] 0.30 mg/dL 0.20-1.[address] [facility] Work Phone: [phone] Bilirubin.direct [Mass/Vol] 0.09 mg/dL 0.00-0.30 [facility] Work Phone: [phone] Globulin (S) [Mass/Vol] 3.7 g/dL High 2.3-3.5 [facility] Work Phone: [phone] Protein [Mass/Vol] 7.1 g/dL 6.4-8.2 [facility] Work Phone: [phone] Office Visiton 12-15-2015 Tobacco smoking status NHIS Current every day smoker [facility] Work Phone: [phone] Clinical Lists Update: Prelo quality facilitator 11-09-2015 Anion gap [Moles/Vol] 4 mmol/L Low [facility] Work Phone: [phone] Calcium [Mass/Vol] 8.8 mg/dL [facility] Work Phone: [phone] Chloride [Moles/Vol] 105 mmol/L [facility] Work Phone: [phone] CO2 (BldV) [Partial pressure] 28 mmol/L [facility] Work Phone: [phone] Creatinine [Mass/Vol] 1.19 mg/dL [facility] Work Phone: [phone] Glucose [Mass/Vol] 98 mg/dL [facility] Work Phone: [phone] Hematocrit (Bld) [Volume fraction] 42.5 % [facility] Work Phone: [phone] Hemoglobin (Bld) [Mass/Vol] 14.1 g/dL [facility] Work Phone: [phone] Platelets (Bld) [#/Vol] 225 10*3/mm3 [facility] Work Phone: [phone] Potassium [Moles/Vol] 3.9 mmol/L [facility] Work Phone: [phone] RBC (Bld) [#/Vol] 4.78 10*6/uL [facility] Work Phone: [phone] Sodium [Moles/Vol] 137 mmol/L [facility] Work Phone: [phone] Urea nitrogen [Mass/Vol] 17 mg/dL [facility] [facility] Work Phone: [phone] Urea nitrogen/Creatinine [Mass ratio] 14.3 mg/mg [facility] Work Phone: [phone] WBC (Bld) [#/Vol] 11.5 10*3/uL [facility] Work Phone: [phone] Clinical Lists Update: Prelo quality facilitator 11-06-2015 Magnesium [Mass/Vol] 2.2 mg/dL [facility] Work Phone: [phone] Office Visit: Establish Care on 07-20-2015 Tobacco smoking status NHIS Never [facility] Work Phone: [phone] No Panel Information Influenza Types A,B Direct FA ([facility]) [facility] Work Phone: Vital Signs Date Time Vital Sign Value Performing Clinician Faci lity 11-27-2024 11:01-0400 Body temperature 98.8 [degF] Dr. Jamie Milner DO Work Phone: [facility] 11-27-2024 11:01-0400 Diastolic blood pressure 74 mm[Hg] Dr. Jamie Milner DO Work Phone: [facility] 11-27-2024 11:01-0400 Heart rate 82 /min Dr. Jamie Milner DO Work Phone: [facility] 11-27-2024 11:01-0400 Respiratory rate 16 /min Dr. Jamie Milner DO Work Phone: [facility] 11-27-2024 11:01-0400 SaO2% (BldA) [Mass fraction] 96 % Dr. Jamie Milner DO Work Phone: [facility] 11-27-2024 11:01-0400 Systolic blood pressure 122 mm[Hg] Dr. Jamie Milner DO Work Phone: [facility] 11-27-2024 10:10-0400 Body mass index (BMI) [Ratio] 37.6 kg/m2 Dr. Jamie Milner DO Work Phone: [facility] 11-27-2024 10:10-0400 Body weight 105.[address] Jamie Milner DO Work Phone: [facility] 11-27-2024 08:49-0400 Body height 167.[address] Jamie Milner DO Work Phone: [facility] 08-05-2021 11:05-0400 Diastolic blood pressure 68 mm[Hg] [facility] Work Phone: 08-05-2021 11:05-0400 Heart rate 80 /min [facility] Work Phone: 08-05-2021 11:05-0400 Respiratory rate 16 /min [facility] Work Phone: 08-05-2021 11:05-0400 SaO2% (BldA) [Mass fraction] 98 % [facility] Work Phone: 08-05-2021 11:05-0400 Systolic blood pressure 137 mm[Hg] [facility] Work Phone: 08-05-2021 07:30-0400 Body temperature 98 [degF] [facility] Work Phone: 08-05-2021 07:27-0400 Body height 167.64 cm [facility] Work Phone: 08-05-2021 07:27-0400 Body mass index (BMI) [Ratio] 38.7 kg/m2 [facility] Work Phone: 08-05-2021 07:27-0400 Body weight 108.86 kg [facility] Work Phone: 12-15-2015 09:36-0500 BMI (Body Mass Index) 39.06 kg/m2 [facility] Work Phone: 12-15-2015 09:36-0500 Body weight 109.77 kg [facility] Work Phone: 12-15-2015 09:36-0500 BP Diastolic 62 mm[Hg] Farnaz Jin RN [facility] Work Phone: 12-15-2015 09:36-0500 BP Systolic 104 mm[Hg] [facility]arnaz Jin RN [facility] Work Phone: 12-15-2015 09:36-0500 BSA (Body Surface Area) 2.17 m2 [facility] Work Phone: 12-15-2015 09:36-0500 Height 167.64 cm Farnaz Jin RN [facility] Work Phone: 12-15-2015 09:36-0500 Pulse (Heart Rate) 76 /min [facility] Work Phone: 12-15-2015 09:36-0500 Respiratory Rate 18 /min [facility] Work Phone: 07-20-2015 13:20-0400 Body Temperature 98.7 [degF] [facility] Work Phone: 07-20-2015 13:20-0400 Pulse Oximetry 98 % [facility] Jin RN [facility] Work Phone: Encounters Encounter Date Encounter Type Care Provider Facility Start: 12-19-2024 End: 12-19-2024 ambulatory Jamie Milner [place]: 11-27-2024 End: 11-27-2024 Emergency department patient visit Opal Mi Facility:[facility] Start: 05-22-2024 End: 05-22-[address] Jamie Milner DO Work Phone: [facility] Work Phone: Start: 05-22-2024 End: 05-22-[address] Jamie Milner DO -Laboratory, [facility] Start: 05-22-2024 End: 05-22-2024 ambulatory Jamie Milner Facility:[facility] Start: 05-23-2023 End: 05-23-2023 ambulatory [facility] Work Phone: Start: 05-23-2023 End: 05-23-2023 Patient encounter procedure [facility] Start: 01-13-2023 End: 01-13-2023 ambulatory [facility] Work Phone: Start: 01-13-2023 End: 01-13-2023 Patient encounter procedure [facility]-Outpatient Breast Imaging Work Phone: Start: 12-15-2022 End: 12-15-2022 Patient encounter procedure [facility]-Cat Scan, [facility] Work Phone: Start: 12-06-2022 End: 12-06-2022 ambulatory [facility] Work Phone: Start: 12-06-2022 End: 12-06-2022 Patient encounter procedure [facility] Start: 11-17-2021 End: 11-17-2021 ambulatory [facility] Work Phone: Start: 11-17-2021 End: 11-17-2021 Patient encounter procedure [facility] Start: 08-05-2021 End: 08-05-2021 Emergency department patient visit [facility]-Emergency Department Start: 05-06-2018 End: 05-08-2018 Patient encounter procedure [facility] Start: 01-20-2017 Ambulatory [facility] Start: 01-13-2017 Ambulatory [facility] Procedures Date Procedure Procedure Detail Performing Clinician Start: 11-27-2024 Plain x-ray of pelvi s and lower extremity Dr. Jamie Milner DO Work Phone: Start: 01-13-2023 Screening mammography Start: 12-15-2022 CT of chest Start: 08-05-2021 Plain chest X-ray Start: 01-07-2016 End: 02-09-2016 *Hepatic Function Panel Benito Lozoya MD Work Phone: Start: 01-07-2016 End: 02-09-2016 Lipid 1996 panel - Serum or Plasma Benito Lozoya MD Work Phone: Start: 12-15-2015 End: 12-15-2015 Dietary management education, guidance, and counseling Farnaz Jin RN Start: 12-15-2015 End: 12-15-2015 Documentation of current medications Farnaz Jin RN Start: 12-15-2015 End: 12-15-2015 Smoking cessation education Farnaz Jin RN Start: 12-15-2015 End: 12-15-2015 DENTON Lozoya MD Work Phone: Start: 12-15-2015 End: 12-15-2015 Follow Up Appt 3 months Benito Lozoya MD Work Phone: H/O: hysterectomy H/O: hysterectomy History of appendectomy h/o appendectomy Influenza Types A,B Direct FA ([facility]) Plan of Treatment Date Care Activity Detail Author Start: 01-04-2025 ambulatory Ambulatory Facility:[facility] Start: 11-27-2024 [facility] Start: 08-05-2021 End: 08-05-2021 [facility] Work Phone: Start: 07-11-2016 End: 07-11-2016 Appointment Appointment [facility] Work Phone: Start: 04-06-2016 End: 02-10-2016 *Hepatic Function Panel *Hepatic Function Panel [facility] Work Phone: Start: 04-06-2016 End: 02-10-2016 Lipid 1996 panel *Lipid Profile CC PCP [facility] Work Phone: Start: 01-07-2016 End: 02-09-2016 *Hepatic Function Panel *Hepatic Function Panel [facility] Work Phone: Start: 01-07-2016 End: 02-09-2016 Lipid 1996 panel *Lipid Profile CC PCP [facility] Work Phone: Start: 12-15-2015 End: 12-15-2015 DENTON CHAWLA [facility] Work Phone: Start: 12-15-2015 End: 12-15-2015 Follow Up Appt 3 months Follow Up Appt 3 months [facility] Work Phone: Start: 07-20-2015 End: 07-20-2015 Ct soft tissue neck w/o contrast material CT Neck Soft Tissue [facility] Work Phone: Start: 07-20-2015 End: 07-21-2015 Physical Therapy General Physical Therapy [facility], [address] [place] [address], [id number] [facility] Work Phone: Start: 07-20-2015 End: 07-20-2015 Radiologic exam knee complete 4/more views X-Ray, Knee [facility] Work Phone: Patient Education [facility] Work Phone: Patient referral [facility] Work Phone: Immunizations Immunization Date Immunization Notes Care Provider Tamera bull 11-07-2015 influenza, injectabl e, quadrivalent, preservative free [facility] 11-07-2015 influenza, seasonal, injectable [facility] Work Phone: Payers Date Payer Category Payer Self-pay [id number] 2024 Unknown [id number] 2014 Unknown [facility] [id number] Medicare Unknown Unknown [id number] Unknown [id number] Unknown [id number] Unknown [id number] Social History Date Type Detail Facility Start: 08-05-2021 End: 11-24-2021 Tobacco smoking status NHIS Unknown if ever smoked [facility] Start: 11-07-2015 None [facility] Start: 11-07-2015 With Family [facility] Start: 04-12-2019 Cigarettes [facility] Start: 1960 Sex Assigned At Female W [facility] Start: 11-24-2021 End: 11-27-2024 Tobacco smoking status NHIS Smokes tobacco daily (finding) [facility] Start: 05-27-2024 Sex Female (finding) [facility] Sex Female [facility] Mental Status Date Assessment Result Facility 08-05-2021 Cognitive function Level Of Cons ciousness Awake;Alert;Appropriate;Follow s Commands [facility] Work Phone: Discharge summary 11-27-2024 Note Date & Type Note Facility 11-27-2024 Discharge summary [facility] Radiology Diagnostic study note 11-27-2024 Note Date & Type Note Facility 11-27-2024 Radiology Diagnostic study note [facility] Imaging Services [address] [place], [place] [address] HIP, UNI W/ Pelvis 2-3 Views MR#: [id number] Acct: [id number] Name: JAROCHO KELLY Rep #: [id number] : 1960 F 64 From: Carl Morales MD PCP: Dr. Jamie Milner, DO Status: REG ER Study:HIP, UNI W/ Pelvis 2-3 Views Date of Ex am: 11/27/24 Exam# [id number] Ordering Dr: Alex Mi MD PROCEDURE: HIP, UNI W/ PELVIS 2-3 VIEWS 11/27/2024 REASON FOR EXAM: Left hip pain. TECHNIQUE: Procedure Code: RADHP Modality: DX Procedure: HIP, UNI W/ PELVIS 2-3 VIEWS Laterality: Left hip. COMPARISON: None FINDINGS: Bones: No fracture Joints: Mild degree of joint space narrowing. Degenerative changes of both sacroiliac joints worse on the right side. Soft tissues: Soft tissues are unremarkable. Other: RAD/HIP, UNI W/ Pelvis 2-3 Views IMPRESSION: Mild degree of left hip osteoarthritis. Degenerative changes of the sacroiliac joints bilaterally. Reading Location: [place] [address] CC: Dr. Opal Mi MD; Dr. Jamie Milner DO ~ Premises Technician: Signed [facility] Discharge summary Note Date & Type Note Facility Discharge summary Note Date/Time November 27, 2024 12:02pm [facility] Medical Records Department [address] [place] [address] Emergency Department Summary 11/27/24 MR#: [id number] Acct: [id number] Name: JAROCHO KELLY Rep #:[id number] : 1960 64 From: Opal Mi MD PCP: Dr. Jamie Milner DO Status:DEP ER Location: ED HPI History of Present Illness Chief Complaint: Lower Extremity Injury Narrative Narrative: Patient is a 64-year-old female presenting to the emergency department for left hip pain. She did not have any injury to her hip. She has a past medical history of osteoarthritis, obesity, hyperlipidemia, hypertension and NSTEMI. Patient states that she is caring for her sister who lives at [facility]. States that she has had on and off right knee pain and left hip pain for the past few years. States that she started to have left hip pain on Monday afterpushing her sister in a wheelchair to go to doctors appointments. When she was lying in bed that evening she noticed her left hip was aching. She states it isaching when it is at rest but when she tries to get up to ambulate she has some pain on the left lateral side of her hip and upper leg. States she has taken Aleve a few times, took nothing today. Has been applying heat to her hip as well as using Biofreeze. She denies any fever, chills, nausea, vomiting. Denies any back pain. [facility] Medical History (Updated 11/27/24 @ 10:[address] Opal Mi MD) Anxiety Depression Smoker Myocardial infarct Hemorrhoids GERD (gastroesophageal reflux disease) COPD (chronic obstructive pulmonary disease) Depression with anxiety Heart disease Arthritis History of back problems Rectal bleeding Family history of coronary artery disease Obesity Nicotine addiction Hyperlipidemia Hypertension Non-ST elevation [place] (NSTEMI) Major depression Home Medications ?Medication ?Instructions ?Recorded ?Last Taken ?Type bupropion HCl 200 mg tablet,12 hr 200 mg PO BID 11/06/15 History sustained-release metoprolol tartrate 25 mg tablet 25 mg PO BID #60 tabs 11/09/15 Unknown Rx nitroglycerin 0.4 mg sublingual 0.4 mg sublingual Q5M PRN chest 11/09/15 Unknown Rx tablet pain #1 BOTTLE alprazolam 0.5 mg tablet 0.5 mg PO PRN PRN Anxiety Unknown History citalopram 40 mg tablet 40 mg PO QDAY 07/06/17 Unkno wn History clopidogrel 75 mg tablet (Plavix) 75 mg PO QDAY 04/08/19 History rosuvastatin 10 mg tablet 20 mg PO QDAY 07/06/17 Unkno wn History losartan 100 1 tab PO DAILY 03/25/19 Unkn own History mg-hydrochlorothiazide 25 mg tablet phenazopyridine 200 mg tablet 200 mg PO BID PRN PRN Pa in #10 tabs 12/26/19 Unknown Rx albuterol sulfate 90 mcg/actuation 2 puff inhalation Q 4H PRN PRN 08/05/21 Unknown Rx aerosol inhaler (Ventolin HFA) Wheezing ##1 pantoprazole 20 mg tablet,delayed 20 mg PO DAILY 11/24 Unknown History release Allergy/AdvReac Type Severity Reaction Status Date / Time Acrylic Acid and Acrylates AdvReac Intermediate Other Verified 11/27/24 08:50 (steri-strips (acrylate)) Family History Mother Diabetes Heart disease Hypertension Father Cancer bladder cancer CAD (coronary artery disease) High cholesterol Surgical History (Updated 11/27/24 @ 10:12 by Brandi Argueta) History of appendectomy History of cholecystectomy h/o lap cholecystectomy h/o appendectomy H/O: hysterectomy History of total adrenalectomy Social History Smoking Status: Current every day smoker tobacco type: cigarettes alcohol intake: current alcohol intake frequency: holidays/special occasions only substance use type: does not use ROS ROS ED ROS Narrative see HPI EXAM Physical Exam Narrative Exam Narrative: Vital signs: Reviewed General: Alert and oriented x 3. No acute distress HEENT: Head is normocephalic and atraumatic, sinuses nontender, pupils equal round and reactive. Nares are patent. Oropharynx and throat exams normal. Neck: Supple without lymphadenopathy nontender Cardiovascular: Regular rate and rhythm, no murmurs. No rubs or gallops. Normal S1 and S2 Respiratory: Clear to auscultation bilaterally. No wheezes, rales, rhonchi Abdominal: Soft and nontender. Normal bowel sounds. No guarding or rebound. Nonsurgical abdomen Extremities: No midline cervical, thoracic or lumbar spinal tenderness to palpation. No step-offs or deformities. There is some mild tenderness to palpation over the left SI joint and the left lateral hip. There is no tenderness to palpation of the left upper leg, knee or tib-fib. DP and PT pulses are intact. Sensation intact. Active flexion and extension of the hip is limited due to pain however normal flexion and extension with no pain with passive movement of hip. No redness or warmth of the joint. No bruising. Skin: No rash or redness. The rest of the physical exam is unremarkable Const Vital Signs: 11/27/24 08:49 11/27/24 11:01 Temperature 96.8 F L 98.8 F Temperature Source Temporal Pulse Rate 87 82 Respiratory Rate 16 16 Blood Pressure 135/80 H 122/74 H Blood Pressure Mean 98 90 Pulse Ox 100 96 Oxygen Delivery Method Room Air MDM MDM MDM Narrative Medical decision making narrative: Patient is a 64-year-old female presenting to the emergency department for left hip pain. Patient was seen and examined. Vitals are stable. Patient resting bed comfortably no acute distress. Toradol given for analgesia. X-ray of the hip was ordered given her age and female gender, rule out fracture however less likely given no trauma. Likely MSKin nature. Not consistent with a septic joint given no pain with passive range of motion, no redness, warmth, swelling over joint space. Pain is not down along the back of the left leg consistent with sciatica. She has no back pain. Left hip x-rays were reviewed by myself. No fracture or dislocation noted. Radiology read with mild degree of left hip osteoarthritis. Degenerative changes of the SI joints bilaterally. Patient reevaluated, notes much improvement after the Toradol. Updated on the negative x-ray for fracture or dislocation. She was given RICE instructions. She states she has a rollator athome to use over the next few days to help ambulate. She was able to ambulate here. She was instructed to take NSAIDs over the next few days schedule to helpwith pain and inflammation. All questions were answered. Patient discharged from the Emergency Department. I do not feel that the patient's evaluation reveals any acute reason for admission at this time. I instructed them to eitherfollow-up with their primary care physician or promptly return to the Emergency Department for reevaluation should symptoms worsen or new symptoms develop. I explained what symptoms would indicate the need to return to the emergency department. Shared decision making was used. The patient voiced understanding ofthe treatment plan and is agreeable with it. Clinical impression: Left hip pain History & Record Review Discussion w/independent historian: Patient and Significant other Radiography X-Ray: Left Hip, Read by ED Physician and No Fracture Diagnostic Testing: Clinical Impression(s) from Imaging Studies Hip/Pelvis X-Ray 11/27/24 09:06 IMPRESSION: Mild degree of left hip osteoarthritis. Degenerative changes of the sacroiliac joints bilaterally. Reading Location: [place] [address] Discharge Plan Triage Chief Complaint: Lower Extremity Injury ED Provider: Opal Mi Dx/Rx/DC Orders Clinical Impression: Acute pain of left hip Instructions: ED Hip Strain, ED RICE Prescriptions: No Action citalopram 40 mg tablet 40 mg PO QDAY clopidogrel [Plavix] 75 mg tablet 75 mg PO QDAY rosuvastatin 10 mg tablet 20 mg PO QDAY losartan-hydrochlorothiazide 100-25 mg tablet 1 tab PO DAILY pantoprazole 20 mg tablet,delayed release (DR/EC) 20 mg PO DAILY bupropion HCl 200 MG tablet extended release 12 hr 200 mg PO BID Patient Comments: MENTAL HEALTH nitroglycerin 0.4 MG tablet 0.4 mg SUBLINGUAL Q5M PRN (Reason: chest pain) Qty: 1 0RF Patient Comments: chest pain Rx Instructions: as directed metoprolol tartrate 25 MG tablet 25 mg PO BID Qty: 60 0RF Patient Comments: blood pressure alprazolam 0.5 MG tablet 0.5 mg PO PRN PRN (Reason: Anxiety) Patient Comments: phenazopyridine 200 MG tablet 200 mg PO BID PRN PRN (Reason: Pain) Qty: 10 0RF albuterol sulfate [Ventolin HFA] 90 mcg/actuation HFA aerosol inhaler 2 puff inhalation Q4H PRN PRN (Reason: Wheezing) Qty: 1 0RF Primary Care Provider: Jamie Milner Referrals: Jamie Milner DO [Primary Care Provider, Family Practice] - As soon as possible Activity Restrictions/Additional Instructions: Use your rollator at home to help you ambulate. Take Motrin scheduled every 8 hours for the next 5 to 7 days. Make sure you take it with food. You can also apply Voltaren gel to your hip. You can ice or use heat to your hip to help with pain. If you are still experiencing pain that is not improved in 1 week you need to follow-up with your primary care doctor to have repeat imaging done. Your evaluation in the Emergency Department did not reveal any acute reason foradmission. However, I want to emphasize that you may be early in the course of adisease process or illness even if it is not present. For this reason you shouldfollow-up within 24 hours for reevaluation with either your primary care physician or if necessary back here in the Emergency Department. You should return to the Emergency Department immediately if your symptoms worsen or new symptoms develop. Print Language: Colombian Disposition Disposition: Home, Self Care Discharge Date/Time: 11/27/24 11:02 What to do if you have Problems For any increased pain, shortness of breath, bleeding, nausea or vomiting, chestpain, or any unexpected problems, contact your Primary Care Provider. Call [facility] ([phone]) or report to the closest Emergency Room. Call 911 if necessary. 11/27/24 1239 <Electronically signed by Opal Mi MD> Cosigner Signature (if applicable): CC: Dr. Jamie Milner DO ~ Signed [facility] Work Phone: Evaluation note Note Date & Type Note Facility Evaluation note No assessment information availa ble [facility] Work Phone: Hospital Discharge instructions Note Date & Type Note Facility Hospital Discharge instructions Additional Instructions Use your rollator at home to help you ambulate. Take Motrin scheduled every 8 hours for the next 5 to 7 days. Make sure you take it with food. You can also apply Voltaren gel to your hip. You can ice or use heat to your hip to help with pain. If you are still experiencing pain that is not improved in 1 week you need to follow-up with your primary care doctor to have repeat imaging done. Your evaluation in the Emergency Department did not reveal any acute reason for admission. However, I want to emphasize that you may be early in the course of a disease process or illness even if it is not present. For this reason you should follow-up within 24 hours for reevaluation with either your primary care physician or if necessary back here in the Emergency Department. You should return to the Emergency Department immediately if your symptoms worsen or new symptoms develop. [facility] Work Phone: Reason for referral (narrative) Note Date & Type Note Facility Reason for referral (narrative) No reason for referral information available [facility] Work Phone: Summary Purpose Family History Relationship Condition Age at Onset Recorded Date/T charu mother Diabetes mellitus Unknown Cardiac disease Unknown Hypertension Unknown father Malignant neoplasm Unknown Coronary artery disease Unknown High blood cholesterol Unknown Advance Directives Advance Directive Response Recorded Date/ Time Advance Directives No October 4:17pm Living Will No August 05, 2021 7:40am Power of Adjustment Supervisor No August 05 7:40am Advance Directive Response Recorded Date/ Time Advance Directives No October 3:17pm Living Will No August 05, 2021 6:40am Power of Adjustment Supervisor No August 05 2 6:40am Advance Directive Response Recorded Date/ Time Advance Directives No October 4:17pm Advance Directive Response Recorded Date/ Time Do you have a Healthcare Power of Adjustment Supervisor? No November 27, 2024 9:11am Advance Directives No October 3:17pm Chief Complaint and Reason for Visit Chief Complaint general illness Chief Complaint Encounter for screen ing for malignant neoplasm of SCREENING Chief Complaint Admit Date lower ext November 27, 2024 8 :48am Additional Source Comments INFORMATION SOURCE (unrecogn ized section and content) DATE CREATED AUTHOR 07/31/2017 [facility] DATE CREATED AUTHOR AUTHOR'S ORGANIZ ATION 08/01/2017 [facility] DATE CREATED AUTHOR AUTHOR'S ORGANIZ ATION 05/10/2018 [facility] DATE CREATED AUTHOR AUTHOR'S ORGANIZ ATION 12/19/2024 [facility] Goals (unrecognized section and content) Goals may be documented in a n alternate sectionGoals may be documented in an alternate sectionGoals may be documented in an alternate sectionGoals may be documented in an alternate sectionGoals may be documented in an alternate sectionGoals may be documented in an alternate section Care Teams (unrecognized sec tion and content) Team Status: Active Member Role Status Dates Dr. Jamie Milner DO Family Provider Active Dr. Jamie Milner DO Primary Care Provider Active Team Status: Inactive Member Role Status Dates Dr. Jamie Milner DO Primary Care Prov ider, Attending Provider, Referring Provider Active Team Status: Inactive Member Role Status Dates Dr. Jamie Milner DO Primary Care Provider Active Start: May 22, 2024 End: May 22, 2024 Dr. Jamie Milner DO Attending Provider Active Start: May 22, 2024 End: May 22, 2024 Team Status: Active Member Role/Relationship Status Dates Dr. Jamie Milner DO Primary care physician Active Team Status: Inactive Member Role/Relationship Status Dates Dr. Jamie Milner DO Primary care physician Active Start: November 27, 2024 End: November 27, 2024 Dr. Opal Mi MD Attending physician Active Start: November 27, 2024 End: November 27, 2024 Dr. [facility] Active Start: November 27, 2024 End: November 27, 2024 FOR RECORDS PERTAINING TO PATIENTS WHO ARE OR HAVE BEEN ENROLLED IN A CHEMICAL DEPENDENCY/SUBSTANCEABUSE PROGRAM, SOME INFORMATION MAY BE OMITTED. This clinical summary was aggregated from multiple sources. Caution should be exercised in using it in the provision of clinical care. This summary normalizes information from multiple sources, and as a consequence, information in this document may materially change the coding, format and clinical context of patient data. In addition, data may be omitted in some cases. CLINICAL DECISIONS SHOULD BE BASED ON THE PRIMARY CLINICAL RECORDS. [employer] provides no warranty or guarantee of the accuracy or completeness of information in this document.
== END | disposition home or self-care (01) ==
LOC: CT 07:50
PROVIDERS: PCP Family Medicine; Referring Provider Family Medicine; Visit Provider Family Medicine
DX: Z12.2 Encounter for screening for malignant neoplasm of respiratory organs (principal); Z87.891 Personal history of nicotine dependence
CPT/HCPCS: 71271

== ENCOUNTER 2025-01-17 05:55 | Day surgery (SDC) | payer MEDICARE, SELFPAY ==
--- NOTE | 2025-01-15 10:10 | PAT.ANE_ITS ---
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 When Was Last Pacemaker Check QUESTION #4 FULL TEXT: You/Your Family Experience fever (hyperthermia) with Anesthesia Last Oral Intake Last Oral intake: Last Oral Intake NPO since Meds taken in AM with sips of water? 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 Has anyone observed you stop No 01/15/25 08:51 breathing during sleep? STOP Results Negative 01/15/25 08:51 QUESTION #5 FULL TEXT : Do you snore loudly (louder than talking or can be heard through closed doors)? 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 Specify any problems Hx of Preganancy in last 3 No 01/15/25 08:51 Months Nurse Filling Out Transfusion [id number] 01/15/25 08:51 & Questions: Date: 01/15/25 01/15/25 08:51 Time: 08:53 01/15/25 08:51 Patient unable to answer at this time (ie. 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: /Reproductive Hx- sausage machine operator Hx Now Gestational Age (in weeks): EDC: Hx Hx Para Hx Section SAB Does the father of the baby or his family experience fever w Father of the baby Malignant Hypertension history comment PFSH Medical History Shortness of breath on exertion Wears dentures Wears glasses High cholesterol History of stress test H/O acute myocardial infarction Pes anserine bursitis PAD (peripheral artery disease) CAD (coronary artery disease) Anxiety Depression Smoker Myocardial infarct Hemorrhoids GERD (gastroesophageal reflux disease) COPD (chronic obstructive pulmonary disease) Depression with anxiety Heart disease Arthritis History of back problems Rectal bleeding Family history of coronary artery disease Obesity Nicotine addiction Hyperlipidemia Hypertension Non-ST elevation [place] (NSTEMI) Major depression Home Medications ?Medication ?Instructions ?Recorded ?Last Taken ?Type bupropion HCl 200 mg tablet,12 hr 200 mg PO BID 11/06/15 History sustained-release nitroglycerin 0.4 mg sublingual 0.4 mg sublingual Q5M PRN chest 11/09/15 Unknown Rx tablet pain #1 BOTTLE citalopram 40 mg tablet 40 mg PO QHS 07/06/17 Unknow n History losartan 100 1 tab PO DAILY 03/25/19 Unkn own History mg-hydrochlorothiazide 25 mg tablet phenazopyridine 200 mg tablet 200 mg PO BID PRN PRN Pa in #10 tabs 12/26/19 Unknown Rx pantoprazole 20 mg tablet,delayed 20 mg PO QHS 2 Unknown History release bisacodyl 5 mg tablet 20 mg (4 x 5 mg) PO ONCE #4 tabs 12/19/24 Unknown Rx polyethylene glycol 3350 17 238 g PO ONCE #238 grams 1 02/19/24 Unknown Rx gram/dose oral powder ipratropium 20 mcg-albuterol 100 1 puff inhalation 4X/ DAY 01/15/25 Unknown Hi story mcg/actuation mist for inhalation (Combivent Respimat) metoprolol tartrate 25 mg tablet 25 mg PO QHS 01/15/25 Unknown History rosuvastatin 20 mg tablet (Crestor) 20 mg PO QHS 01/15 Unknown History Allergy/AdvReac Type Severity Reaction Status Date / Time Acrylic Acid and Acrylates AdvReac Intermediate Other Verified 01/15/25 08:48 (steri-strips (acrylate)) Family History Mother Diabetes Heart disease Hypertension Myocardial infarction Father Cancer bladder cancer CAD (coronary artery disease) High cholesterol Brother Cancer pancreatic Surgical History History of cardiac catheterization History of appendectomy History of cholecystectomy H/O: hysterectomy History of total adrenalectomy Social History Smoking Status: Current every day smoker tobacco type: cigarettes Smoking packs per day: 0.5 Smoking cigarettes per day: 10.0 Years smoked: 48 Smoking pack- years: 24.00 alcohol intake: current alcohol intake frequency: holidays/special occasions only substance use type: does not use caffeine: Yes
[2025-01-17] VITALS (8 sets, daily range): BP systolic 90–147; BP diastolic 50–78; PULSE 64–89; RESP 14–16; TEMP 35.9–36.3; O2SAT 96–99; BMI 38.0
--- OUTSIDE RECORDS SUMMARY | 2025-01-17 05:57 | XMS RPT_ITS | CCD ---
Author Organization 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 Jamie Milner DO Primary Care Provider Dr. Jamie Milner DO Attending Provider [phone] Jamie Milner Primary Care Unavailable Jamie Milner [...] source) STERI STRIP drug allergy 07-20-2015 Blisters [facility] Work Phone: (6 sources) Acrylic Acid and Acrylates; Translations: [Acrylic Acid and Acrylates] Propensity to adverse reactions 12-29-2021 Other [facility] Comment on above: BLISTERS Medications Current Medications Medication Drug Class(es) Dates Sig (Normalized) Sig (Original) [id number] 200 actuat albuterol 0.09 mg/actuat metered dose [...] 1 tablet by mouth daily CITALOPRAM HYDROBROMIDE [id number] Ana Bosch PA-C clopidogrel 75 mg oral tablet (7 sources) P2Y12 Platelet Inhibitor Start: 07-06-2017 take 1 tablet by mouth once daily Start: 11-18-2015 take 1 tablet by carina th once daily PLAVIX 75 MG TABS One tablet by mouth daily CLOPIDOGREL BISULFATE [id number] Benito Lozoya MD hydroCHLOROthiazide 25 mg / [...] ne tablet by mouth daily LOSARTAN POTASSIUM-HCTZ [id number] Benito Lozoya MD metoprolol tartrate 25 mg [...] tablet by mouth at bedtime. ROSUVASTATIN CALCIUM [id number] Benito Lozoya MD Completed/Discontinued Medications Medication Drug [...] CAPS 2 capsules by mouth daily CHOLECALCIFEROL [id number] Ana Bosch PA-C docusate sodium 50 mg [...] 1 capsule by mouth daily DOCUSATE SODIUM [id number] Ana Bosch PA-C lansoprazole 30 mg delayed [...] CPDR 2 capsules by mouth daily LANSOPRAZOLE [id number] Aan Bosch PA-C naproxen sodium 220 mg oral tablet (2 sources) Nonsteroidal Anti-inflammatory Drug Start: 07-20-2015 End: 11-18-2015 take 1 tablet by mouth once daily as needed for pain ALEVE 220 MG TABS 1 tablet by mouth daily as needed for pain NAPROXEN SODIUM [id number] Ana Bosch PA-C 24 hr nicotine 0.875 mg/hr transdermal system (2 sources) Cholinergic Nicotinic Agonist Start: 11-18-2015 End: 12-15-2015 NICODERM CQ 21 MG/24HR PT24 Apply once a day for a week NICOTINE [id number] Tammy Agustin RN nitroglycerin 0.4 mg sublingual tablet (7 sources) Nitrate Vasodilator Start: 11-18-2015 NITROSTAT 0.4 MG SUBL 1 tablet under tongue every 5 min up to 3 X NITROGLYCERIN [id number] Tammy Agustin RN Start: 11-09-2015 Start: 11-09-2015 [...] disease (6 sources) Atherosclerotic heart disease of [place] coronary artery without angina pectoris; Translations: [Old [...] (1 source) Long-term drug therapy; Translations: [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] Onset: 11-18-2015 11-18-2015 Viral infection (6 sources) Acute viral disease; Translations: [Viral infection, unspecified] 08-13-2021 Episodic Past or Other Problems Problem Classification Problem Date Documented Date Episodic/Chronic Medical examination/evaluatio n (2 sources) Encounter for other preprocedural examination; Translations: [Encounter for other preprocedural examination] Onset: 01-13-2017 Episodic Other aftercare (2 sources) half-way (current) use of aspirin; Translations: [half-way (current) use of aspirin] Onset: 01-20-2017 Episodic [...] Visit Repor ton 12-19-2024 Gastroenterology Visit Report [facility] [address] [place] [address] OFFICE VISIT Date of Service: 12/19/24 MR#: [id number] Acct: [id number] Name: JAROCHO KELLY Rep #: [id number] : 1960 Provider: ACE Liang Age/Sex: 64/F [place] [facility] [place]: Signed Intake Vital Signs 11/27/24 08:49 [...] any questions or concerns at this time. [facility] Medical History H/O acute myocardial infarction Pes anserine bursitis PAD (peripheral artery disease) CAD (coronary artery disease) Anxiety Depression Smoker Myocardial infarct Hemorrhoids GERD (gastroesophageal reflux disease) COPD (chronic obstructive pulmonary disease) Depression with anxiety Heart disease Arthritis History of back problems Rectal bleeding Family history of coronary artery disease Obesity Nicotine addiction Hyperlipidemia Hypertension Non-ST elevation AR (NSTEMI) Major depression Surgical History History of [...] cramps, sti (more content not included)... Normal [facility] Emergency Department Summary on 11-27-2024 Emergency Department Summary [facility] Medical Records Department [address] [place] [address] Emergency Department Summary 11/27/24 MR#: [id number] Acct: [id number] Name: JAROCHO KELLY Rep #: [id number] : 1960 64 From: Opal Mi MD [...] caring for her sister who lives at [facility]. States that she has had on [...] chills, nausea, vomiting. Denies any back pain. [facility] Medical History (Updated 11/27/24 @ 10:[address] Opal Mi MD) Anxiety Depression Smoker Myocardial infarct Hemorrhoids GERD (gastroesophageal reflux disease) COPD (chronic obstructive pulmonary disease) Depression with anxiety Heart disease Arthritis History of back problems Rectal bleeding Family history of coronary artery disease Obesity Nicotine addiction Hyperlipidemia Hypertension Non-ST elevation AR (NSTEMI) Major depression Home Medications ???Medication ???Instructions [...] and extens (more content not included)... Normal [facility] HIP, UNI W/ Pelvis 2-3 Views on 11-27-2024 HIP, UNI W/ Pelvis 2-3 Views [facility] Imaging Services [address] [place] [address] HIP, UNI W/ Pelvis 2-3 Views MR#: [id number] Acct: [id number] Name: JAROCHO KELLY Rep #: [id number] : 1960 F 64 From: Sher tavares MD PCP: Dr. Jamie Milner, DO Status: REG ER Study: HIP, UNI W/ Pelvis 2-3 Views Date of Exam: Exam# [id number] Ordering Dr: Opal Mi MD PROCEDURE: HIP, [...] of the sacroiliac joints bilaterally. Reading Location: [place] [address] CC: Dr. Opal Mi MD; Dr. Jamie Milner DO Quality Control Inspector Heading: Signed Normal [facility] Absolute neutrophil countOrd ered By: Jamie Milner on 05-22-2024 Neutrophils (Bld) [#/Vol] 6.0 10*3/uL 2.0-7.7 [facility] Anion gap in Serum or Plasma Ordered By: Jamie Milner on 05-22-2024 Anion gap [Moles/Vol] 13 mmol/L 5-15 [facility] BUN/creatinine ratioOrdered By: Jamie Milner on 05-22-2024 Urea nitrogen/Creatinine [Mass ratio] 14.6 mg/mg 10-20 [facility] Basophil percentageOrdered B y: Jamie Milner on 05-22-2024 Basophils/100 WBC (Bld) 1.1 % High 0-1 [facility] Bilirubin, totalOrdered By: Jamie Milner on 05-22-2024 Bilirubin [Mass/Vol] 0.40 mg/dL 0.00-1.30 [facility] CBC W/Diff, Automatedon 05-07 Absolute Lymph 2.33 X10 3/uL Normal 0.83-4.51 [facility] Comment on above: Performed By: #### L 500.4050, L501.3620, L100.0100, L500.4100, L501.9520, L101.9900, L501.6710 #### [facility] [address] [place], [address] Absolute Neut 6.0 X10 3/uL Normal 2.0-7.7 [facility] Comment on above: Performed By: #### L 500.4050, L501.3620, L100.0100, L500.4100, L501.9520, L101.9900, L501.6710 #### [facility] [address] [place], [address] Basophils/100 WBC (Bld) 1.1 % High 0-1 [facility] Comment on above: Performed By: #### L 500.4050, L501.3620, L100.0100, L500.4100, L501.9520, L101.9900, L501.6710 #### [facility] [address] [place], [address] Eosinophils/100 WBC (Bld) 2.3 % Normal 0-5 [facility] Comment on above: Performed By: #### L 500.4050, L501.3620, L100.0100, L500.4100, L501.9520, L101.9900, L501.6710 #### [facility] [address] [place], [address] Erythrocyte distribution width (RBC) [Ratio] 13.2 % Normal 11.6-14.6 [facility] Comment on above: Performed By: #### L 500.4050, L501.3620, L100.0100, L500.4100, L501.9520, L101.9900, L501.6710 #### [facility] [address] [place], [address] Hematocrit (Bld) [Volume fraction] 42.7 % Normal 37-47 [facility] Comment on above: Performed By: #### L 500.4050, L501.3620, L100.0100, L500.4100, L501.9520, L101.9900, L501.6710 #### [facility] [address] [place], [address] Hemoglobin (Bld) [Mass/Vol] 14.7 g/dL Normal 12.0-15.0 [facility] Comment on above: Performed By: #### L 500.4050, L501.3620, L100.0100, L500.4100, L501.9520, L101.9900, L501.6710 #### [facility] [address] [place], [address] IG% 0.500 Normal 0.0-0.9 [facility] Comment on above: Result Comment: IG% - Immature Granulocytes (promyelocytes, myelocytes and metamyelocytes) > 1% indicates that a LEFT SHIFT is Present. Performed By: #### L 500.4050, L501.3620, L100.0100, L500.4100, L501.9520, L101.9900, L501.6710 #### [facility] [address] [place], [address] Lymphocytes/100 WBC (Bld) 25.4 % Normal 19-41 [facility] Comment on above: Performed By: #### L 500.4050, L501.3620, L100.0100, L500.4100, L501.9520, L101.9900, L501.6710 #### [facility] [address] [place], [address] MCH (RBC) [Entitic mass] 30.8 pg Normal 27.0-32.0 [facility] Comment on above: Performed By: #### L 500.4050, L501.3620, L100.0100, L500.4100, L501.9520, L101.9900, L501.6710 #### [facility] [address] [place], [address] MCHC (RBC) [Mass/Vol] 34.4 g/dL Normal 32-36 [facility] Comment on above: Performed By: #### L 500.4050, L501.3620, L100.0100, L500.4100, L501.9520, L101.9900, L501.6710 #### [facility] [address] [place], [address] MCV (RBC) [Entitic vol] 89.3 fL Normal 81-99 [facility] Comment on above: Performed By: #### L 500.4050, L501.3620, L100.0100, L500.4100, L501.9520, L101.9900, L501.6710 #### [facility] [address] [place], [address] Monocytes/100 WBC (Bld) 5.7 % Normal 0-10 [facility] Comment on above: Performed By: #### L 500.4050, L501.3620, L100.0100, L500.4100, L501.9520, L101.9900, L501.6710 #### [facility] [address] [place], [address] Neutrophils/100 WBC (Bld) 65.0 % Normal 47-70 [facility] Comment on above: Performed By: #### L 500.4050, L501.3620, L100.0100, L500.4100, L501.9520, L101.9900, L501.6710 #### [facility] [address] [place], [address] Nucleated RBC (Bld) [#/Vol] 0 10*3/uL Normal 0-5 [facility] Comment on above: Performed By: #### L 500.4050, L501.3620, L100.0100, L500.4100, L501.9520, L101.9900, L501.6710 #### [facility] [address] [place], [address] Platelet mean volume (Bld) [Entitic vol] 9.9 fL Normal 6.2-12.0 [facility] Comment on above: Performed By: #### L 500.4050, L501.3620, L100.0100, L500.4100, L501.9520, L101.9900, L501.6710 #### [facility] [address] [place], [address] Platelets (Bld) [#/Vol] 285 10*3/uL Normal 150-450 [facility] Comment on above: Performed By: #### L 500.4050, L501.3620, L100.0100, L500.4100, L501.9520, L101.9900, L501.6710 #### [facility] [address] [place], [address] RBC (Bld) [#/Vol] 4.78 10*6/uL Normal 4.2-5.4 [facility] Comment on above: Performed By: #### L 500.4050, L501.3620, L100.0100, L500.4100, L501.9520, L101.9900, L501.6710 #### [facility] [address] [place], [address] RDW SD 43.3 fl Normal 35.1-43.9 [facility] Comment on above: Performed By: #### L 500.4050, L501.3620, L100.0100, L500.4100, L501.9520, L101.9900, L501.6710 #### [facility] [address] [place], [address] WBC (Bld) [#/Vol] 9.2 10*3/uL Normal 4.4-11.0 [facility] Comment on above: Performed By: #### L 500.4050, L501.3620, L100.0100, L500.4100, L501.9520, L101.9900, L501.6710 #### [facility] [address] [place], [address] CPK Total, Creatine Kinaseon 05-22-2024 CPK TOTAL 88 U/L Normal 24-195 [facility] Comment on above: Performed By: #### L 500.4050, L501.3620, L100.0100, L500.4100, L501.9520, L101.9900, L501.6710 #### [facility] [address] [place], [address] CRPon 05-22-2024 C-REACTIVE PROT 11.80 mg/L High 0.0-3.0 [facility] Comment on above: Performed By: #### L 500.4050, L501.3620, L100.0100, L500.4100, L501.9520, L101.9900, L501.6710 #### [facility] [address] [place], [address] CRP [Mass/Vol]Ordered By: Chilo Milner on 05-22-2024 C-Reactive Protein Extended Range 11.80 mg/L High 0.0-3.0 [facility] Calculated very low density lipoprotein (VLDL) cholesterol measurementOrdered By: Jamie Milner on 05-22-2024 VLDL Cholesterol 52 mg/dL High 5-40 [facility] Carbon dioxide, total [Moles /volume] in Central venous bloodOrdered By: Jamie Milner on 05-22-2024 CO2 [Moles/Vol] 26.4 mmol/L 21.0-32.0 [facility] Chloride assayOrdered By: Chilo Milner on 05-22-2024 Chloride [Moles/Vol] 100 mmol/L 98-108 [facility] Comprehensive Metabolic Prof ilon 05-22-2024 Albumin [Mass/Vol] 4.1 g/dL Normal 3.4-4.8 [facility] Comment on above: Performed By: #### L 500.4050, L501.3620, L100.0100, L500.4100, L501.9520, L101.9900, L501.6710 #### [facility] [address] [place], [address] Albumin/Globulin [Mass ratio] 1.3 {ratio} Normal 0.9-2.4 [facility] Comment on above: Performed By: #### L 500.4050, L501.3620, L100.0100, L500.4100, L501.9520, L101.9900, L501.6710 #### [facility] [address] [place], [address] ALK PHOS 85 U/L Normal 35-104 [facility] Comment on above: Performed By: #### L 500.4050, L501.3620, L100.0100, L500.4100, L501.9520, L101.9900, L501.6710 #### [facility] [address] [place], [address] ALT [Catalytic activity/Vol] 13 U/L Normal <=34 [facility] Comment on above: Performed By: #### L 500.4050, L501.3620, L100.0100, L500.4100, L501.9520, L101.9900, L501.6710 #### [facility] [address] [place], [address] AST [Catalytic activity/Vol] 19 U/L Normal <=31 [facility] Comment on above: Performed By: #### L 500.4050, L501.3620, L100.0100, L500.4100, L501.9520, L101.9900, L501.6710 #### [facility] [address] [place], [address] Bilirubin [Mass/Vol] 0.40 mg/dL Normal 0.00-1.30 [facility] Comment on above: Performed By: #### L 500.4050, L501.3620, L100.0100, L500.4100, L501.9520, L101.9900, L501.6710 #### [facility] [address] [place], [address] BUN/CRE 14.6 RATIO Normal 10-20 [facility] Comment on above: Performed By: #### L 500.4050, L501.3620, L100.0100, L500.4100, L501.9520, L101.9900, L501.6710 #### [facility] [address] [place], [address] Calcium [Mass/Vol] 9.9 mg/dL Normal 7.6-11.0 [facility] Comment on above: Performed By: #### L 500.4050, L501.3620, L100.0100, L500.4100, L501.9520, L101.9900, L501.6710 #### [facility] [address] [place], [address] Chloride [Moles/Vol] 100 mmol/L Normal 98-108 [facility] Comment on above: Performed By: #### L 500.4050, L501.3620, L100.0100, L500.4100, L501.9520, L101.9900, L501.6710 #### [facility] [address] [place], [address] CO2 [Moles/Vol] 26.4 mmol/L Normal 21.0-32.0 [facility] Comment on above: Performed By: #### L 500.4050, L501.3620, L100.0100, L500.4100, L501.9520, L101.9900, L501.6710 #### [facility] [address] [place], [address] Creatinine [Mass/Vol] 1.43 mg/dL High 0.70-1.20 [facility] Comment on above: Performed By: #### L 500.4050, L501.3620, L100.0100, L500.4100, L501.9520, L101.9900, L501.6710 #### [facility] [address] [place], [address] GAP 13 Normal 5-15 [facility] Comment on above: Performed By: #### L 500.4050, L501.3620, L100.0100, L500.4100, L501.9520, L101.9900, L501.6710 #### [facility] [address] [place], [address] GFR/1.73 sq M.predicted among non-blacks MDRD (S/P/Bld) [Vol rate/Area] 41 mL/min/{1.73_m2} Low >60 [facility] Comment on above: Result Comment: mL/m in/1.73m2 CKD-EPI Creatinine Equation (2020) Performed By: #### L 500.4050, L501.3620, L100.0100, L500.4100, L501.9520, L101.9900, L501.6710 #### [facility] [address] [place], [address] Globulin (S) [Mass/Vol] 3.0 g/dL Normal 2.2-4.2 [facility] Comment on above: Performed By: #### L 500.4050, L501.3620, L100.0100, L500.4100, L501.9520, L101.9900, L501.6710 #### [facility] [address] [place], [address] Glucose [Mass/Vol] 96 mg/dL Normal 70-99 [facility] Comment on above: Performed By: #### L 500.4050, L501.3620, L100.0100, L500.4100, L501.9520, L101.9900, L501.6710 #### [facility] [address] [place], [address] Potassium [Moles/Vol] 4.2 mmol/L Normal 3.3-5.1 [facility] Comment on above: Performed By: #### L 500.4050, L501.3620, L100.0100, L500.4100, L501.9520, L101.9900, L501.6710 #### [facility] [address] [place], [address] Sodium [Moles/Vol] 139 mmol/L Normal 133-145 [facility] Comment on above: Performed By: #### L 500.4050, L501.3620, L100.0100, L500.4100, L501.9520, L101.9900, L501.6710 #### [facility] [address] [place], [address] T PROT 7.1 g/dL Normal 5.9-8.4 [facility] Comment on above: Performed By: #### L 500.4050, L501.3620, L100.0100, L500.4100, L501.9520, L101.9900, L501.6710 #### [facility] [address] [place], [address] Urea nitrogen [Mass/Vol] 21 mg/dL High 4-19 [facility] Comment on above: Performed By: #### L 500.4050, L501.3620, L100.0100, L500.4100, L501.9520, L101.9900, L501.6710 #### [facility] [address] [place], [place], [address] Eosinophil percentageOrdered By: Jamie Milner on 05-22-2024 Eosinophils/100 WBC (Bld) 2.3 % 0-5 [facility] Erythrocyte Sed Rateon 05-22 SED RATE 8 mm/hr Normal 0-30 [facility] Comment on above: Performed By: #### L 500.4050, L501.3620, L100.0100, L500.4100, L501.9520, L101.9900, L501.6710 #### [facility] [address] [place], [place], [address] Erythrocyte distribution wid th (RBC) [Ratio]Ordered By: Jamie Milner on 05-22-2024 Erythrocyte distribution width (RBC) [Entitic vol] 43.3 fL 35.1-43.9 [facility] Erythrocyte distribution wid th ratioOrdered By: Jamie Milner on 05-22-2024 Erythrocyte distribution width (RBC) [Ratio] 13.2 % 11.6-14.6 [facility] Erythrocyte sedimentation ra teOrdered By: Jamie Milner on 05-22-2024 ESR (Bld) [Velocity] 8 mm/h 0-30 [facility] GFR/1.73 sq M.predicted stephany g non-blacks MDRD (S/P/Bld) [Vol rate/Area]Ordered By: Jamie Milner on 05-22-2024 Estimated GFR (MDRD) Non-Af Amer 41 Low >60 [facility] Comment on above: mL/min/1.73m2 CKD-EP I Creatinine Equation (2020) Hematocrit Auto (Bld) [Volum e fraction]Ordered By: Jamie Milner on 05-22-2024 Hematocrit (Bld) [Volume fraction] 42.7 % 37-47 [facility] Hemoglobin measurementOrdere d By: Jamie Milner on 05-22-2024 Hemoglobin (Bld) [Mass/Vol] 14.7 g/dL 12.0-15.0 [facility] Immature granulocytes/100 WB C Auto (Bld)Ordered By: Jamie Milner on 05-22-2024 Immature granulocytes/100 WBC (Bld) 0.500 % 0.0-0.9 [facility] Comment on above: IG% - Immature Granu locytes (promyelocytes, myelocytes and metamyelocytes) > 1% indicates that a LEFT SHIFT is Present. LDL calc ser/plasOrdered By: Jamie Milner on 05-22-2024 LDL Cholesterol, Calculated 174 mg/dL [facility] Comment on above: Nafcmftpwr=628-091 m g/dL & Higher Cibl=885 mg/dL or greater Laboratory - Chemistry and C hemistry - challengeOrdered By: Jamie Milner on 05-22-2024 AST [Catalytic activity/Vol] 19 U/L <32 [facility] Lipid Profileon 05-22-2024 CHOL:HDL 5.04 Normal [facility] Comment on above: Performed By: #### L 500.4050, L501.3620, L100.0100, L500.4100, L501.9520, L101.9900, L501.6710 #### [facility] [address] [place], [address] Cholesterol [Mass/Vol] 281 mg/dL High <=200 [facility] Comment on above: Result Comment: Chol esterol level, Desirable <200 mg/dL Borderline high cholesterol 200-239 mg/dL High cholesterol >=240 mg/dL Recommendations of the NCEP Adult Treatment Panel for the following risk-cutoff thresholds for the [place] population. Performed By: #### L 500.4050, L501.3620, L100.0100, L500.4100, L501.9520, L101.9900, L501.6710 #### [facility] [address] [place], [address] Cholesterol in HDL [Mass/Vol] 56 mg/dL Normal [facility] Comment on above: Result Comment: Brandi onal Cholesterol Education Program (NCEP) guidelines: <40 mg/dL: Low HDL-cholesterol (major risk factor for CHD) >= 60 mg/dL: High HDL-cholesterol (negative risk factor for CHD) HDL-cholesterol is affected by a number of factors, e.g. smoking, exercise, hormones, sex and age. Performed By: #### L 500.4050, L501.3620, L100.0100, L500.4100, L501.9520, L101.9900, L501.6710 #### [facility] [address] [place], [address] Cholesterol in LDL [Mass/Vol] 174 mg/dL Normal [facility] Comment on above: Result Comment: Bord hmnryn=010-739 mg/dL Higher Vfnw=172 mg/dL or greater Performed By: #### L 500.4050, L501.3620, L100.0100, L500.4100, L501.9520, L101.9900, L501.6710 #### [facility] [address] [place], [address] Cholesterol in VLDL [Mass/Vol] 52 mg/dL High 5-40 [facility] Comment on above: Performed By: #### L 500.4050, L501.3620, L100.0100, L500.4100, L501.9520, L101.9900, L501.6710 #### [facility] [address] [place], [address] Triglyceride [Mass/Vol] 259 mg/dL High [facility] Comment on above: Result Comment: The drugs N-Acetylcysteine and Metamizole may falsely depress this assay. Normal range: <150 mg/dL Borderline High: 150-199 mg/dL High: 200-499 mg/dL Very High: >500 mg/dL Performed By: #### L 500.4050, L501.3620, L100.0100, L500.4100, L501.9520, L101.9900, L501.6710 #### [facility] [address] [place], [address] Lymphocytes Auto (Unsp spec) [#/Vol]Ordered By: Jamie Milner on 05-22-2024 Lymphocytes (Bld) [#/Vol] 2.33 10*3/uL 0.83-4.51 [facility] Lymphocytes/100 WBC Auto (Un sp spec)Ordered By: Jamie Milner on 05-22-2024 Lymphocytes/100 WBC (Bld) 25.4 % 19-41 [facility] MCV (mean corpuscular volume ) determinationOrdered By: Jamie Milner on 05-22-2024 MCV (RBC) [Entitic vol] 89.3 fL 81-99 [facility] Mean corpuscular hemoglobin (MCH) determinationOrdered By: Jamie Milner on 05-22-2024 MCH (RBC) [Entitic mass] 30.8 pg 27.0-32.0 [facility] Mean corpuscular hemoglobin concentration (MCHC) determinationOrdered By: Jamie Milner on 05-22-2024 MCHC (RBC) [Mass/Vol] 34.4 g/dL 32-36 [facility] Mean platelet volume determi nationOrdered By: Jamie Milner on 05-22-2024 Platelet mean volume (Bld) [Entitic vol] 9.9 fL 6.2-12.0 [facility] Monocyte percentageOrdered B y: Jamie Milner on 05-22-2024 Monocytes/100 WBC (Bld) 5.7 % 0-10 [facility] Neutrophil percentageOrdered By: Jamie Milner on 05-22-2024 Neutrophils/100 WBC (Bld) 65.0 % 47-70 [facility] Nucleated red blood cell per centageOrdered By: Jamie Milner on 05-22-2024 Nucleated RBC/100 WBC (Bld) [Ratio] 0 % 0-5 [facility] Platelet countOrdered By: Chilo Milner on 05-22-2024 Platelets (Bld) [#/Vol] 285 10*3/uL 150-450 [facility] Potassium (Unsp spec) [Mass/ Vol]Ordered By: Jamie Milner on 05-22-2024 Potassium [Moles/Vol] 4.2 mmol/L 3.3-5.1 [facility] RBC Auto (Bld) [#/Vol]Ordere d By: Jamie Milner on 05-22-2024 RBC (Bld) [#/Vol] 4.78 10*6/uL 4.2-5.4 [facility] Screening total cholesterol/ high density lipoprotein (HDL) cholesterol ratioOrdered By: Jamie Milner on 05-22-2024 Cholesterol.total/Maya sterol in HDL [Mass ratio] 5.04 {ratio} [facility] Serum creatinine measurement (mass/volume)Ordered By: Jamie Milner on 05-22-2024 Creatinine [Mass/Vol] 1.43 mg/dL High 0.70-1.20 [facility] Serum globulin measurementOr dered By: Jamie Milner on 05-22-2024 Globulin (S) [Mass/Vol] 3.0 g/dL 2.2-4.2 [facility] Serum glucose measurement (m ass/volume)Ordered By: Jamie Milner on 05-22-2024 Glucose [Mass/Vol] 96 mg/dL 70-99 [facility] Serum or plasma alanine miguel otransferase (ALT) measurementOrdered By: Jamie Milner on 05-22-2024 ALT [Catalytic activity/Vol] 13 U/L <35 [facility] Serum or plasma albumin cb urement (mass/volume)Ordered By: Jamie Milner on 05-22-2024 Albumin [Mass/Vol] 4.1 g/dL 3.4-4.8 [facility] Serum or plasma albumin/glob ulin mass ratioOrdered By: Jamie Milner on 05-22-2024 Albumin/Globulin [Mass ratio] 1.3 {ratio} 0.9-2.4 [facility] Serum or plasma alkaline coty sphatase measurementOrdered By: Jamie Milner on 05-22-2024 ALP [Catalytic activity/Vol] 85 U/L 35-104 [facility] Serum or plasma calcium cb urement (mass/volume)Ordered By: Jamie Milner on 05-22-2024 Calcium [Mass/Vol] 9.9 mg/dL 7.6-11.0 [facility] Serum or plasma cholesterol in HDL measurement (mass/volume)Ordered By: Jamie Milner on 05-22-2024 Cholesterol in HDL [Mass/Vol] 56 mg/dL >40 [facility] Comment on above: National Cholesterol Education Program (NCEP) guidelines:<40 mg/dL: Low HDL-cholesterol (major risk factor for CHD)>= 60 mg/dL: High HDL-cholesterol (negative risk factor for CHD)HDL-cholesterol is affected by a number of factors, e.g. smoking, exercise, hormones, sex and age. Serum or plasma cholesterol measurement (mass/volume)Ordered By: Jamie Milner on 05-22-2024 Cholesterol [Mass/Vol] 281 mg/dL High <201 [facility] Comment on above: Cholesterol level, D esirable <200 mg/dLBorderline high cholesterol 200-239 mg/dLHigh cholesterol >=240 mg/dLRecommendations of the NCEP Adult Treatment Panel for the following risk-cutoff thresholds for the [place] population. Serum or plasma creatine kin ase activityOrdered By: Jamie Milner on 05-22-2024 CK [Catalytic activity/Vol] 88 U/L 24-195 [facility] Serum or plasma urea nitroge n measurement (mass/volume)Ordered By: Jamie Milner on 05-22-2024 Urea nitrogen [Mass/Vol] 21 mg/dL High 4-19 [facility] Sodium levelOrdered By: Jamie Milner on 05-22-2024 Sodium [Moles/Vol] 139 mmol/L 133-145 [facility] TSH DL <= 0.005 mIU/L QnOrde red By: Jamie Milner on 05-22-2024 Thyroid Stimulating Hormone (TSH) 1.490 uIU/mL 0.300-4.200 [facility] Thyroid Stim Hormone (TSH)on 05-22-2024 TSH 1.490 uIU/mL Normal 0.300-4.200 [facility] Comment on above: Performed By: #### L 500.4050, L501.3620, L100.0100, L500.4100, L501.9520, L101.9900, L501.6710 #### [facility] [address] [place], [address] Total proteinOrdered By: Destiny Milner on 05-22-2024 Protein [Mass/Vol] 7.1 g/dL 5.9-8.4 [facility] Triglycerides measurementOrd ered By: Jamie Milner on 05-22-2024 Triglyceride [Mass/Vol] 259 mg/dL High <199 [facility] Comment on above: The drugs N-Acetylcy steine and Metamizole may falsely depress this assay. Normal range: <150 mg/dLBorderline High: 150-199 mg/dLHigh: 200-499 mg/dLVery High: >500 mg/dL White blood cell (WBC) count Ordered By: Jamie Milner on 05-22-2024 WBC (Bld) [#/Vol] 9.2 10*3/uL 4.4-11.0 [facility] Basophil percentageOrdered B y: Jamie Milner on 05-23-2023 Bilirubin [Mass/Vol] 0.40 mg/dL 0.20-1.00 [facility] Comment on above: For patients on eltr ombopag therapy, use of Dimension [place] TBIL is not recommended. Chloride [Moles/Vol] 108 mmol/L 98-107 [facility] Cholesterol [Mass/Vol] 226 mg/dL <200 [facility] Comment on above: <200 mg/dL Desirable 200-240 mg/dL Borderline >240 mg/dL High Risk Glucose [Mass/Vol] 84 mg/dL 74-106 [facility] Potassium [Moles/Vol] 4.4 mmol/L 3.5-5.1 [facility] Protein [Mass/Vol] 6.9 g/dL 6.4-8.2 [facility] Sodium [Moles/Vol] 139 mmol/L 136-145 [facility] Triglyceride [Mass/Vol] 157 mg/dL <199 [facility] Comment on above: The drugs N-Acetylcy steine and Metamizole may falsely depress this assay.Serum Triglycerides Reference Interval Normal <150 mg/dL Borderline high 150 - 199 mg/dL High 200 - 499 mg/dL Very High > or = 500 mg/dL Laboratory - Chemistry and C hemistry - challengeOrdered By: Jamie Milner on 05-23-2023 Albumin/Globulin [Mass ratio] 1.0 {ratio} 0.9-2.4 [facility] ALP [Catalytic activity/Vol] 77 U/L 45-117 [facility] ALT [Catalytic activity/Vol] 36 U/L 13-56 [facility] Cholesterol in HDL [Mass/Vol] 63 mg/dL >40 [facility] Comment on above: The drugs N-Acetylcy steine and Metamizole may falsely depress this assay. Reference Range HDL <40 mg/dL Low HDL Cholesterol HDL >or= 60 mg/dL High HDL Cholesterol Cholesterol in LDL [Mass/Vol] 132 mg/dL 0-130 [facility] CO2 [Moles/Vol] 26.0 mmol/L 21.0-32.0 [facility] Globulin (S) [Mass/Vol] 3.4 g/dL 2.2-4.2 [facility] Natriuretic peptide B (Bld) [Mass/Vol] 57.9 pg/mL 0-100 [facility] Urea nitrogen/Creatinine [Mass ratio] 14.4 mg/mg 10-20 [facility] No Panel InformationOrdered By: Jamie Milner on 05-23-2023 Estimated GFR (MDRD) Amer 64 mL/min >60 [facility] Comment on above: GFR Calc Estimated GFR (MDRD) Non-Af Amer 53 mL/min >60 [facility] Comment on above: Non- GFR Calc VLDL Cholesterol 31 mg/dL 5-40 [facility] Serum or plasma calcium cb urement (mass/volume)Ordered By: Jamie Milner on 05-23-2023 Calcium [Mass/Vol] 8.9 mg/dL 8.5-10.1 [facility] Serum or plasma cortisol pau surement (mass/volume)Ordered By: Jamie Milner on 05-23-2023 Cortisol [Mass/Vol] 5.70 ug/dL 3.44-22.45 [facility] Comment on above: Adult (AM) 5.27 - 22 .45 ug/dL Adult (PM) 3.44 - 16.76 ug/dLPlease note revised CORTISOL reference range effective 2019. Serum or plasma creatinine m easurement (mass/volume)Ordered By: Jamie Milner on 05-23-2023 Creatinine [Mass/Vol] 1.11 mg/dL 0.55-1.02 [facility] Comment on above: The validity of the calculated GFR & GFRAA in patients over 70 years has not been determined. Clinical correlation is essential. Serum or plasma thyroid stim ulating hormone (TSH) measurement (units/volume)Ordered By: Jamie Milner on 05-23-2023 TSH Qn 1.49 uIU/mL 0.358-3.74 [facility] Serum or plasma urea nitroge n measurement (mass/volume)Ordered By: Jamie Milner on 05-23-2023 Urea nitrogen [Mass/Vol] 16 mg/dL 7-18 [facility] Serum or plasma uric acid me asurement (mass/volume)Ordered By: Jamie Milner on 05-23-2023 Urate [Mass/Vol] 5.7 mg/dL 2.6-6.0 [facility] Comment on above: The drugs N-Acetylcy steine and Metamizole may falsely depress this assay. Thin prep Papanicolaou smear with manual screeningOrdered By: Jamie Milner on 05-23-2023 Thin prep Papanicolaou smear with manual screening 3.5 g/dL 3.2-5.0 [facility] Thin prep Papanicolaou smear with manual screening 27 U/L 15-37 [facility] Thin prep Papanicolaou smear with manual screening 5 5-15 [facility] Absolute lymphocyte countOrd ered By: Jamie Milner on 12-06-2022 Lymphocytes Auto (Unsp spec) [#/Vol] 3.16 10*3/uL 0.83-4.51 [facility] Basophil percentageOrdered B y: Jamie Milner on 12-06-2022 Basophils/100 WBC (Bld) 1.1 % 0-1 [facility] Bilirubin [Mass/Vol] 0.50 mg/dL 0.20-1.00 [facility] Comment on above: For patients on eltr ombopag therapy, use of Dimension [place] TBIL is not recommended. Chloride [Moles/Vol] 101 mmol/L 98-107 [facility] Cholesterol [Mass/Vol] 177 mg/dL <200 [facility] Comment on above: <200 mg/dL Desirable 200-240 mg/dL Borderline >240 mg/dL High Risk Eosinophils/100 WBC (Bld) 1.6 % 0-5 [facility] Glucose [Mass/Vol] 90 mg/dL 74-106 [facility] Neutrophils (Bld) [#/Vol] 5.9 10*3/uL 2.0-7.7 [facility] Neutrophils/100 WBC (Bld) 58.2 % 47-70 [facility] Potassium [Moles/Vol] 4.3 mmol/L 3.5-5.1 [facility] Protein [Mass/Vol] 7.4 g/dL 6.4-8.2 [facility] Sodium [Moles/Vol] 135 mmol/L 136-145 [facility] Triglyceride [Mass/Vol] 231 mg/dL <199 [facility] Comment on above: The drugs N-Acetylcy steine and Metamizole may falsely depress this assay.Serum Triglycerides Reference Interval Normal <150 mg/dL Borderline high 150 - 199 mg/dL High 200 - 499 mg/dL Very High > or = 500 mg/dL WBC (Bld) [#/Vol] 10.1 10*3/uL 4.4-11.0 [facility] Blood erythrocytes count (nu mber/volume)Ordered By: Jamie Milner on 12-06-2022 RBC (Bld) [#/Vol] 5.28 10*6/uL 4.2-5.4 [facility] Blood hemoglobin measurement (mass/volume)Ordered By: Jamie Milner on 12-06-2022 Hemoglobin (Bld) [Mass/Vol] 15.8 g/dL 12.0-15.0 [facility] Blood lymphocytes/100 leukoc ytesOrdered By: Jamie Milner on 12-06-2022 Lymphocytes/100 WBC (Bld) 31.3 % 19-41 [facility] Blood monocytes/100 leukocyt esOrdered By: Jamie Milner on 12-06-2022 Monocytes/100 WBC (Bld) 7.4 % 0-10 [facility] Blood platelet mean volumeOr dered By: Jamie Milner on 12-06-2022 Platelet mean volume (Bld) [Entitic vol] 10.1 fL 6.2-12.0 [facility] Determination of erythrocyte mean corpuscular volume (MCV)Ordered By: Jamie Milner on 12-06-2022 MCV (RBC) [Entitic vol] 91.1 fL 81-99 [facility] Hematocrit Auto (Bld) [Volum e fraction]Ordered By: Jamie Milner on 12-06-2022 Hematocrit (Bld) [Volume fraction] 48.1 % 37-47 [facility] Laboratory - Chemistry and C hemistry - challengeOrdered By: Jamie Milner on 12-06-2022 ALP [Catalytic activity/Vol] 81 U/L 45-117 [facility] ALT [Catalytic activity/Vol] 25 U/L 13-56 [facility] CO2 [Moles/Vol] 31.0 mmol/L 21.0-32.0 [facility] Globulin (S) [Mass/Vol] 3.8 g/dL 2.2-4.2 [facility] Urea nitrogen/Creatinine [Mass ratio] 15.1 mg/mg 10-20 [facility] - Hematology and Cell countsOrdered By: Jamie Milner on 12-06-2022 Erythrocyte distribution width (RBC) [Entitic vol] 44.2 fL 35.1-43.9 [facility] Erythrocyte distribution width (RBC) [Ratio] 13.2 % 11.6-14.6 [facility] Immature granulocytes/100 WBC (Bld) 0.400 % 0.0-0.9 [facility] Comment on above: IG% - Immature Granu locytes (promyelocytes, myelocytes and metamyelocytes) > 1% indicates that a LEFT SHIFT is Present. MCH (RBC) [Entitic mass] 29.9 pg 27.0-32.0 [facility] Nucleated RBC/100 WBC (Bld) [Ratio] 0 % 0-5 [facility] MCHC Auto (RBC) [Mass/Vol]Or dered By: Jamie Milner on 12-06-2022 MCHC (RBC) [Mass/Vol] 32.8 g/dL 32-36 [facility] No Panel InformationOrdered By: Jamie Milner on 12-06-2022 Estimated GFR (MDRD) Amer 42 mL/min >60 [facility] Comment on above: GFR Calc Estimated GFR (MDRD) Non-Af Amer 35 mL/min >60 [facility] Comment on above: Non- GFR Calc Parathyroid Hormone (Intact) 66.5 pg/mL 18.4-80.1 [facility] Vitamin D 25-Hydroxy 32.7 ng/mL [facility] Comment on above: Vitamin D 25(OH) Sta tus Range Deficiency <20 ng/mL (50nmol/L) Insufficiency 20 - 30 ng/mL (50 - 75 nmol/L) Sufficiency 30 - 100 ng/mL (75 - 250 nmol/L) Toxicity >100 ng/mL (>250 nmol/L) Platelets bldOrdered By: Destiny Milner on 12-06-2022 Platelets (Bld) [#/Vol] 286 10*3/uL 150-450 [facility] Serum or plasma albumin cb urement (mass/volume)Ordered By: Jamie Milner on 12-06-2022 Albumin [Mass/Vol] 3.6 g/dL 3.2-5.0 [facility] Serum or plasma albumin/glob ulin mass ratioOrdered By: Jamie Milner on 12-06-2022 Albumin/Globulin [Mass ratio] 0.9 {ratio} 0.9-2.4 [facility] Serum or plasma calcium cb urement (mass/volume)Ordered By: Jamie Milner on 12-06-2022 Calcium [Mass/Vol] 9.4 mg/dL 8.5-10.1 [facility] Serum or plasma cholesterol in HDL measurement (mass/volume)Ordered By: Jamie Milner on 12-06-2022 Cholesterol in HDL [Mass/Vol] 53 mg/dL >40 [facility] Comment on above: The drugs N-Acetylcy steine and Metamizole may falsely depress this assay. Reference Range HDL <40 mg/dL Low HDL Cholesterol HDL >or= 60 mg/dL High HDL Cholesterol Serum or plasma cholesterol in VLDL measurement (mass/volume)Ordered By: Jamie Milner on 12-06-2022 Cholesterol in VLDL [Mass/Vol] 46 mg/dL 5-40 [facility] Serum or plasma creatinine m easurement (mass/volume)Ordered By: Jamie Milner on 12-06-2022 Creatinine [Mass/Vol] 1.59 mg/dL 0.55-1.02 [facility] Comment on above: The validity of the calculated GFR & GFRAA in patients over 70 years has not been determined. Clinical correlation is essential. Serum or plasma low density lipoprotein (LDL) cholesterol measurement (mass/volume)Ordered By: Jamie Milner on 12-06-2022 Cholesterol in LDL [Mass/Vol] 78 mg/dL 0-130 [facility] Serum or plasma urea nitroge n measurement (mass/volume)Ordered By: Jamie Milner on 12-06-2022 Urea nitrogen [Mass/Vol] 24 mg/dL 7-18 [facility] Thin prep Papanicolaou smear with manual screeningOrdered By: Jamie Milner on 12-06-2022 Thin prep Papanicolaou smear with manual screening 20 U/L 15-37 [facility] Thin prep Papanicolaou smear with manual screening 3 5-15 [facility] Absolute lymphocyte counton 11-17-2021 Lymphocytes Auto (Unsp spec) [#/Vol] 3.82 10*3/uL 0.83-4.51 [facility] Work Phone: Basophil percentageon 2021 Basophils/100 WBC (Bld) 1.1 % 0-1 [facility] Work Phone: Bilirubin [Mass/Vol] 0.50 mg/dL 0.20-1.00 [facility] Work Phone: Comment on above: For patients on eltr ombopag therapy, use of Dimension [place] TBIL is not recommended. Chloride [Moles/Vol] 100 mmol/L 98-107 [facility] Work Phone: Cholesterol [Mass/Vol] 230 mg/dL <200 [facility] Work Phone: Comment on above: <200 mg/dL Desirable 200-240 mg/dL Borderline >240 mg/dL High Risk Eosinophils/100 WBC (Bld) 1.6 % 0-5 [facility] Work Phone: Glucose [Mass/Vol] 111 mg/dL 74-106 [facility] Work Phone: Comment on above: Fasting Glucose resu lt from 100 to 125 mg/dL suggests IMPAIRED HOMEOSTASIS per A.D.A. criteria. Neutrophils (Bld) [#/Vol] 7.8 10*3/uL 2.0-7.7 [facility] Work Phone: Neutrophils/100 WBC (Bld) 60.8 % 47-70 [facility] Work Phone: Potassium [Moles/Vol] 4.4 mmol/L 3.5-5.1 [facility] Work Phone: Protein [Mass/Vol] 7.8 g/dL 6.4-8.2 [facility] Work Phone: Sodium [Moles/Vol] 135 mmol/L 136-145 [facility] Work Phone: Triglyceride [Mass/Vol] 246 mg/dL <199 [facility] Work Phone: [phone] Comment on above: The drugs N-Acetylcy steine and Metamizole may falsely depress this assay.Serum Triglycerides Reference Interval Normal <150 mg/dL Borderline high 150 - 199 mg/dL High 200 - 499 mg/dL Very High > or = 500 mg/dL WBC (Bld) [#/Vol] 12.8 10*3/uL 4.4-11.0 [facility] Work Phone: Blood erythrocytes count (nu mber/volume)on 11-17-2021 RBC (Bld) [#/Vol] 5.77 10*6/uL 4.2-5.4 [facility] Work Phone: Blood hemoglobin measurement (mass/volume)on 11-17-2021 Hemoglobin (Bld) [Mass/Vol] 17.0 g/dL 12.0-15.0 [facility] Work Phone: Blood lymphocytes/100 leukoc yteson 11-17-2021 Lymphocytes/100 WBC (Bld) 29.8 % 19-41 [facility] Work Phone: Blood monocytes/100 leukocyt eson 11-17-2021 Monocytes/100 WBC (Bld) 6.0 % 0-10 [facility] Work Phone: Blood platelet mean volumeon 11-17-2021 Platelet mean volume (Bld) [Entitic vol] 10.2 fL 6.2-12.0 [facility] Work Phone: Determination of erythrocyte mean corpuscular volume (MCV)on 11-17-2021 MCV (RBC) [Entitic vol] 89.6 fL 81-99 [facility] Work Phone: Hematocrit Auto (Bld) [Volum e fraction]on 11-17-2021 Hematocrit (Bld) [Volume fraction] 51.7 % 37-47 [facility] Work Phone: Laboratory - Chemistry and C hemistry - challengeon 11-17-2021 ALP [Catalytic activity/Vol] 89 U/L 45-117 [facility] Work Phone: ALT [Catalytic activity/Vol] 25 U/L 13-56 [facility] Work Phone: CO2 [Moles/Vol] 26.0 mmol/L 21.0-32.0 [facility] Work Phone: Globulin (S) [Mass/Vol] 4.2 g/dL 2.2-4.2 [facility] Work Phone: Urea nitrogen/Creatinine [Mass ratio] 9.4 mg/mg 10-20 [facility] Work Phone: Laboratory - Hematology and Cell countson 11-17-2021 Erythrocyte distribution width (RBC) [Entitic vol] 50.7 fL 35.1-43.9 [facility] Work Phone: Erythrocyte distribution width (RBC) [Ratio] 15.7 % 11.6-14.6 [facility] Work Phone: Immature granulocytes/100 WBC (Bld) 0.700 % 0.0-0.9 [facility] Work Phone: Comment on above: IG% - Immature Granu locytes (promyelocytes, myelocytes and metamyelocytes) > 1% indicates that a LEFT SHIFT is Present. MCH (RBC) [Entitic mass] 29.5 pg 27.0-32.0 [facility] Work Phone: Nucleated RBC/100 WBC (Bld) [Ratio] 0 % 0-5 [facility] Work Phone: MCHC Auto (RBC) [Mass/Vol]on 11-17-2021 MCHC (RBC) [Mass/Vol] 32.9 g/dL 32-36 [facility] Work Phone: No Panel Informationon 11-17 Estimated GFR (MDRD) Amer 43 mL/min >60 [facility] Work Phone: Comment on above: GFR Calc Estimated GFR (MDRD) Non-Af Amer 35 mL/min >60 [facility] Work Phone: Comment on above: Non- GFR Calc Platelets bldon 11-17-2021 Platelets (Bld) [#/Vol] 377 10*3/uL 150-450 [facility] Work Phone: Serum or plasma albumin cb urement (mass/volume)on 11-17-2021 Albumin [Mass/Vol] 3.6 g/dL 3.2-5.0 [facility] Work Phone: Serum or plasma albumin/glob ulin mass ratioon 11-17-2021 Albumin/Globulin [Mass ratio] 0.9 {ratio} 0.9-2.4 [facility] Work Phone: Serum or plasma calcium cb urement (mass/volume)on 11-17-2021 Calcium [Mass/Vol] 9.7 mg/dL 8.5-10.1 [facility] Work Phone: Serum or plasma cholesterol in HDL measurement (mass/volume)on 11-17-2021 Cholesterol in HDL [Mass/Vol] 50 mg/dL >40 [facility] Work Phone: Comment on above: The drugs N-Acetylcy steine and Metamizole may falsely depress this assay. Reference Range HDL <40 mg/dL Low HDL Cholesterol HDL >or= 60 mg/dL High HDL Cholesterol Serum or plasma cholesterol in VLDL measurement (mass/volume)on 11-17-2021 Cholesterol in VLDL [Mass/Vol] 49 mg/dL 5-40 [facility] Work Phone: Serum or plasma creatinine m easurement (mass/volume)on 11-17-2021 Creatinine [Mass/Vol] 1.59 mg/dL 0.55-1.[facility] Work Phone: Comment on above: The validity of the calculated GFR & GFRAA in patients over 70 years has not been determined. Clinical correlation is essential. Serum or plasma low density lipoprotein (LDL) cholesterol measurement (mass/volume)on 11-17-2021 Cholesterol in LDL [Mass/Vol] 131 mg/dL 0-130 [facility] Work Phone: Serum or plasma urea nitroge n measurement (mass/volume)on 11-17-2021 Urea nitrogen [Mass/Vol] 15 mg/dL 7-18 [facility] Work Phone: Thin prep Papanicolaou smear with manual screeningon 11-17-2021 Thin prep Papanicolaou smear with manual screening 18 U/L 15-37 [facility] Work Phone: Thin prep Papanicolaou smear with manual screening 9 5-15 [facility] Work Phone: Absolute lymphocyte counton 08-05-2021 Lymphocytes Auto (Unsp spec) [#/Vol] 0.69 10*3/uL 0.83-4.51 [facility] Work Phone: Basophil percentageon 2021 Basophil percentage 0-5 SEEN /hpf 0-5 [facility] Work Phone: Basophils/100 WBC (Bld) 0.9 % 0-1 [facility] Work Phone: Chloride [Moles/Vol] 104 mmol/L 98-107 [facility] Work Phone: Eosinophils/100 WBC (Bld) 0.5 % 0-5 [facility] Work Phone: Glucose [Mass/Vol] 91 mg/dL 74-106 [facility] Work Phone: Neutrophils (Bld) [#/Vol] 4.2 10*3/uL 2.0-7.7 [facility] Work Phone: [phone] Neutrophils/100 WBC (Bld) 74.2 % 47-70 [facility] Work Phone: Potassium [Moles/Vol] 3.9 mmol/L 3.5-5.1 [facility] Work Phone: Sodium [Moles/Vol] 137 mmol/L 136-[address] [facility] [facility] Work Phone: [phone] WBC (Bld) [#/Vol] 5.6 10*3/uL 4.4-11.0 [email or web address] Work Phone: Bilirubin Test strip Ql (U)o n 08-05-2021 Bilirubin Ql (U) Negative Negative [facility] Work Phone: [phone] Blood erythrocytes count (nu mber/volume)on 08-05-2021 RBC (Bld) [#/Vol] 5.21 10*6/uL 4.2-5.4 [facility] Work Phone: Blood hemoglobin measurement (mass/volume)on 08-05-2021 Hemoglobin (Bld) [Mass/Vol] 15.3 g/dL 12.0-15.0 [facility] Work Phone: [phone] Blood lymphocytes/100 leukoc yteson 08-05-2021 Lymphocytes/100 WBC (Bld) 12.3 % 19-41 [facility] Work Phone: [phone] Blood monocytes/100 leukocyt eson 08-05-2021 Monocytes/100 WBC (Bld) 11.4 % 0-10 [facility] Work Phone: Blood platelet mean volumeon 08-05-2021 Platelet mean volume (Bld) [Entitic vol] 10.1 fL 6.2-12.0 [facility] Work Phone: Determination of erythrocyte mean corpuscular volume (MCV)on 08-05-2021 MCV (RBC) [Entitic vol] 87.9 fL 81-99 [facility] Work Phone: Hematocrit Auto (Bld) [Volum e fraction]on 08-05-2021 Hematocrit (Bld) [Volume fraction] 45.8 % 37-47 [facility] Work Phone: Ketones Test strip Ql (U)on 08-05-2021 Ketones Ql (U) Negative Negative [facility] Work Phone: Laboratory - Chemistry and C hemistry - challengeon 08-05-2021 CO2 [Moles/Vol] 28.0 mmol/L 21.0-32.0 [facility] Work Phone: Urea nitrogen/Creatinine [Mass ratio] 7.6 mg/mg 10-20 [facility] Work Phone: Laboratory - Hematology and Cell [place]son 08-05-2021 Erythrocyte distribution width (RBC) [Entitic vol] 43.2 fL 35.1-43.9 [facility] Work Phone: Erythrocyte distribution width (RBC) [Ratio] 13.3 % 11.6-14.6 [facility] Work Phone: Immature granulocytes/100 WBC (Bld) 0.700 % 0.0-0.9 [facility] Work Phone: Comment on above: IG% - Immature Granu locytes (promyelocytes, myelocytes and metamyelocytes) > 1% indicates that a LEFT SHIFT is Present. MCH (RBC) [Entitic mass] 29.4 pg 27.0-32.0 [facility] Work Phone: Nucleated RBC/100 WBC (Bld) [Ratio] 0 % 0-5 [facility] Work Phone: MCHC Auto (RBC) [Mass/Vol]on 08-05-2021 MCHC (RBC) [Mass/Vol] 33.4 g/dL 32-36 [facility] Work Phone: Mucus LM Ql (Urine sed)on Mucus Ql (Urine sed) 0 SEEN /hpf [facility] Work Phone: Nitrite Test strip Ql (U)on 08-05-2021 Nitrite Ql (U) Negative Negative [facility] Work Phone: No Panel Informationon 08-05 Troponin I High Sensitivity 5 pg/mL 3.0-54.0 [facility] Work Phone: Comment on above: Please Note: New Anu t Units and Gender Specific Reference Ranges. For more information see Policy Stat Procedure Winston High Sensitivity Troponin (TNIH) and attachments. Estimated Creatinine Clearance Calc 43.29 ml/min [facility] Work Phone: Estimated GFR (MDRD) Amer 53 mL/min >60 [facility] Work Phone: Comment on above: GFR Calc Estimated GFR (MDRD) Non-Af Amer 44 mL/min >60 [facility] Work Phone: Comment on above: Non- GFR Calc Platelets bldon 08-05-2021 Platelets (Bld) [#/Vol] 201 10*3/uL 150-450 [facility] Work Phone: Protein Test strip Ql (U)on 08-05-2021 Protein Ql (U) 15 mg/dl Negative [facility] Work Phone: Serum or plasma calcium cb urement (mass/volume)on 08-05-2021 Calcium [Mass/Vol] 9.1 mg/dL 8.5-10.1 oste r [facility] Work Phone: Serum or plasma creatinine m easurement (mass/volume)on 08-05-2021 Creatinine [Mass/Vol] 1.31 mg/dL 0.55-1.02 [facility] Work Phone: Comment on above: The validity of the calculated GFR & GFRAA in patients over 70 years has not been determined. Clinical correlation is essential. Serum or plasma urea nitroge n measurement (mass/volume)on 08-05-2021 Urea nitrogen [Mass/Vol] 10 mg/dL 7-18 [facility] Work Phone: Squamous epithelial cells de tection in urine sediment by light microscopyon 08-05-2021 Epithelial cells.squamous LM Ql (Urine sed) 0-5 SEEN /hpf 5-10 [facility] Work Phone: Thin prep Papanicolaou smear with manual screeningon 08-05-2021 Thin prep Papanicolaou smear with manual screening 5 5-15 [facility] Work Phone: Urine blood detectionon 06-3 0-2021 RBC Ql (U) 25 /ul Negative [facility] Work Phone: RBC Ql (U) 0-5 SEEN /hpf 0-5 [facility] Work Phone: Urine clarityon 08-05-2021 Clarity (U) Sl. Cloudy Clear [facility] Work Phone: Urine color determinationon 08-05-2021 Color (U) Yellow Yellow [facility] Work Phone: Urine glucose detectionon Glucose Ql (U) Normal mg/dl Normal [facility] Work Phone: Urine leukocyte esterase det ection by dipstickon 08-05-2021 Leukocyte esterase Test strip Ql (U) 25 /ul Negative [facility] Work Phone: Urine pHon 08-05-2021 pH (U) 6.0 [pH] 5.0 - 8.0 [facility] Work Phone: Urine sediment bacteria coun t by microscopy (number/high power field)on 08-05-2021 Bacteria LM.HPF (Urine sed) [#/Area] 1 /[HPF] None Seen [facility] Work Phone: Urine specific gravity measu rementon 08-05-2021 Specific gravity (U) [Rel density] 1.015 1.002-1.030 [facility] Work Phone: Urobilinogen Auto test strip Ql (U)on 08-05-2021 Urobilinogen Ql (U) Normal mg/dl Normal [facility] Work Phone: CNOVon 05-06-2018 CNOV Office Visit (UCWSTR ) -------- JAROCHO KELLY ([id number]) 1960 F Date Time Provider Department 05/06/18 [...] by WILMAN DUFFY PA-C on 05/06/18 Normal [facility] PROGRESSon 05-06-2018 Protein mass conc HNO ID: [id number] Author: Wilman Duffy (Pa) Service: ? Author Type: Physician Human Resources Services Specialist Type: Progress Notes Filed: 05/06/2018 12:17 PM [...] SOLUTION FOR NEBULIZATION Wilman Duffy PA-C Normal [facility] Metabolic Panelon 01-21 Calcium 8.8 mg/dL Normal 8.4-10.2 [facility] Comment on above: Performed By: #### H ERIN, [facility] ####[address] [place] [address] Alanine aminotransferase (ALT) 55 U/L Normal 13-69 [facility] Comment on above: Performed By: #### H MITCHEL CMP3 ####[address] [place] [address] Alkaline phosphatase (ALP) 81 U/L Normal 38-126 [facility] Comment on above: Performed By: #### H MITCHEL CMP3 ####[address] [place] [address] Anion gap 7 mmol/L Normal [facility] Comment on above: Performed By: #### H MITCHEL CMP3 ####[address] [place] [address] Aspartate aminotransferase (AST) 48 U/L High 15-46 [facility] Comment on above: Performed By: #### H MITCHEL CMP3 ####[address] [place] [address] Bilirubin (total) 0.3 mg/dL Normal 0.2-1.3 [facility] Comment on above: Performed By: #### H MITCHEL CMP3 ####[address] [place] [address] CO2 22 mmol/L Normal 22-30 [facility] Comment on above: Performed By: #### H MITCHEL, CMP3 ####[address] [place] [address] Creatinine 0.91 mg/dL Normal 0.52-1.25 [facility] Comment on above: Performed By: #### H MITCHEL CMP3 ####[address] [place] [address] eGFR (black) mL/min/{1.73_m2} Normal >60 [facility] Comment on above: Performed By: #### H EMDF, CMP3 ####[address] [place] [address] eGFR (non-black) mL/min/{1.73_m2} Normal >60 [facility] Comment on above: Result Comment: Sour ce- MDRD equation with creatinine calibration to IDMS(NKDEP)eGFR not recommended for drug dose adjustment Performed By: #### H MITCHEL CMP3 ####[address] [place] [address] Glucose mass conc 150 mg/dL High 70-100 [facility] Comment on above: Performed By: #### H MITCHEL CMP3 ####[address] [place] [address] Protein 6.5 g/dL Normal 6.3-8.2 [facility] Comment on above: Performed By: #### H MITCHEL CMP3 ####[address] [place] [address] Urea nitrogen 14 mg/dL Normal 7-20 [facility] Comment on above: Performed By: #### H MITCHEL CMP3 ####[address] [place] [address] Potassium molar conc 4.5 mmol/L Normal 3.5-5.1 [facility] Comment on above: Performed By: #### H MITCHEL CMP3 ####[address] [place] [address] Albumin 3.5 g/dL Normal 3.5-5.0 [facility] Comment on above: Performed By: #### H MITCHEL CMP3 ####[address] [place] [address] Sodium 138 mmol/L Normal 137-145 [facility] Comment on above: Performed By: #### H MITCHEL CMP3 ####[address] [place] [address] Chloride 108 mmol/L High 98-107 [facility] Comment on above: Performed By: #### H MITCHEL CMP3 ####[address] [place] [address] Hemogram w/ Autodiffon 01-21 Abs Baso Cnt 0.0 10*3/uL Normal 0.0-0.2 [facility] Comment on above: Performed By: #### Cherelle GRULLON CMP3 ####[address] [place] [address] Basophils/100 WBC Auto (Bld) 0.0 % Normal [facility] Comment on above: Performed By: #### H EMDF CMP3 ####[address] [place] [address] Eosinophils 0.0 10*3/uL Normal 0.0-0.5 [facility] Comment on above: Performed By: #### H EMDF, CMP3 ####[address] [place] [address] Eosinophils/100 leukocytes 0.0 % Normal [facility] Comment on above: Performed By: #### H EMDF CMP3 ####[address] [place] [address] Erythrocyte distribution width Auto Ratio (RBC) 14.4 % Normal 11.5-14.5 [facility] Comment on above: Performed By: #### H EMDF, CMP3 ####[address] [address] Erythrocytes (RBC) 4.11 10*6/uL Normal 3.80-5.20 [facility] Comment on above: Performed By: #### H EMDF CMP3 ####[address] [place] [address] Granulocytes/100 WBC (Bld) 91.7 % Normal [facility] Comment on above: Performed By: #### H EMDF, CMP3 ####[address] [address] Hematocrit (HCT) 38.1 % Normal 35.0-47.0 [facility] Comment on above: Performed By: #### H EMDF, CMP3 ####[address] [place] [address] Hemoglobin mass conc (Bld) 12.6 g/dL Normal 11.7-16.0 [facility] Comment on above: Performed By: #### H EMDF, CMP3 ####[address] [place] [address] Lymphocytes 0.9 10*3/uL Low 1.0-4.3 [facility] Comment on above: Performed By: #### H EMDF CMP3 ####[address] [place] [address] Lymphocytes/100 leukocytes 5.8 % Normal [facility] Comment on above: Performed By: #### H MITCHEL CMP3 ####[address] [place] [address] MCH 30.7 pg Normal 26.0-34.0 [facility] Comment on above: Performed By: #### H MITCHEL CMP3 ####[address] [place] [address] MCHC mass conc (RBC) 33.2 % Normal 32.0-36.0 [facility] Comment on above: Performed By: #### H MITCHEL CMP3 ####[address] [place] [address] MCV 92.6 fL Normal 79.0-98.0 [facility] Comment on above: Performed By: #### H MITCHEL CMP3 ####[address] [place] [address] Monocytes 0.4 10*3/uL Normal 0.0-0.8 [facility] Comment on above: Performed By: #### H MITCHEL CMP3 ####[address] [place] [address] Monocytes/100 leukocytes 2.5 % Normal [facility] Comment on above: Performed By: #### H MITCHEL CMP3 ####[address] [place] [address] Neutrophils 13.8 10*3/uL High 1.8-7.0 [facility] Comment on above: Performed By: #### H EMDRan CMP3 ####[address] [place] [address] Platelet mean volume (PMV) 9.1 fL Normal 7.4-10.4 [facility] Comment on above: Performed By: #### H EMDRan CMP3 ####[address] [place] [address] Platelets 200 10*3/uL Normal 140-440 [facility] Comment on above: Performed By: #### H EMDF, CMP3 ####[facility] [place] [address] WBC (Leukocytes) 15.0 10*3/uL High 3.6-10.7 [facility] Comment on above: Performed By: #### H MITCHEL, CMP3 ####[address] [place] [address] Surgical Pathologyon 017 Surgical Pathology [id number] [facility]AT[facility] MEDICINE [address] [place] [address] FINAL SURGICAL PATHOLOGY REPORT NAME: SHERRIJAROCHO AMAYA Jenniffer N [id number].O.B.: 1960 56 Y F BILLING NO.: [id number]: [id number] PROCEDURE 01/20/2017 DATE:SURGEON: ARYA [...] in greatest dimension by 1 x 3.5cm. Claim Analyst sections are submitted in four cassettes. Theremainder of the entire specimen is submitted in cassettes 5 - 16.(bits ss, 16) LH3/CALDisclaimer: The following statement applies to allimmunohistochemistry, in situ hybridization, molecular studies, andimmunofluorescence testing.The use of one or more reagents in the above tests is regulated as ananalyte specific reagent (ASR). These tests were developed and theirperformance characteristics determined by the clinical laboratories [facility]. They have not been cleared by [...] false negativity on decalcified specimens.Professional Performing Location: [address] [address]. DEPARTMENT OF PATHOLOGY AND LABORATORY MEDICINE [place], [place] [address] Normal [facility] Comment on above: Performed By: #### S UR ####Performing Lab is in report Basic Metabolic Panelon 12-0 Anion gap 9 mmol/L Normal [facility] Comment on above: Performed By: #### H BON BMP3 ####[address] [place] [address] Creatinine 1.45 mg/dL High 0.55-1.40 [facility] Comment on above: Performed By: #### H BON BMP3 ####[address] [place] [address] eGFR (black) 45.4 mL/min/{1.73_m2} Normal >60 [facility] Comment on above: Performed By: #### H BON BMP3 ####[address] [place] [address] eGFR (non-black) 37.5 mL/min/{1.73_m2} Normal >60 [facility] Comment on above: Result Comment: Sour ce- MDRD equation with creatinine calibration to IDMS(NKDEP)eGFR not recommended for drug dose adjustment Performed By: #### H BON BMP3 ####[address] [place] [address] CO2 27 mmol/L Normal 21-32 [facility] Comment on above: Performed By: #### H BON BMP3 ####[address] [place] [address] Glucose mass conc 84 mg/dL Normal 70-100 [facility] Comment on above: Performed By: #### H BON BMP3 ####[address] [place] [address] Urea nitrogen 18 mg/dL Normal 7-25 [facility] Comment on above: Performed By: #### H TERRYCT, BMP3 ####[address] [place] [address] Calcium 9.4 mg/dL Normal 8.2-10.1 [facility] Comment on above: Performed By: #### H GHCT, BMP3 ####[address] [place] [address] Chloride 103 mmol/L Normal 98-109 [facility] Comment on above: Performed By: #### H GHCT, BMP3 ####[address] [address] Potassium molar conc 4.1 mmol/L Normal 3.5-5.1 [facility] Comment on above: Performed By: #### H GHCT, BMP3 ####[address] [place] [address] Sodium 139 mmol/L Normal 135-145 [facility] Comment on above: Performed By: #### H GHCT, BMP3 ####[address] [place] [address] Hemoglobinon 01-13-2017 Hematocrit (HCT) 43.3 % Normal 35.0-47.0 [facility] Comment on above: Performed By: #### H GHCT, BMP3 ####[address] [place] [address] Hemoglobin mass conc (Bld) 14.3 g/dL Normal 11.7-16.0 [facility] Comment on above: Performed By: #### H GHCT, BMP3 ####[address] [place] [address] TS GELon 01-13-2017 TS GEL PATIENT: ROBIN REYES LOC: [facility] BILL# : [id number] : 1960 SEX: F AGE: 56ORDERED BY: ANGELIQUE Baltazar ORDERED : 01/13/2017 11:53 COLLECTED: 01/13/2017 12:14ORDER : [id number] RECEIVED : 01/13/2017 15:12 TEST NAME RESULT UNITS RANGES ABN FL STABO Group A FRh, Gel POS FAntibody Screen Gel NEG F ------ Normal [facility] Comment on above: Performed By: #### T SGL ####[address] [address] Clinical Lists Update: Prelo resolution agent 04-08-2016 Left ventricular Ejection fraction 65 % [facility] Work Phone: [phone] Lab Report: CORTISOL SERUMon 02-10-2016 Cortisol [Mass/Vol] 0.80 ug/dL Low 3.09-22.40 [facility] Work Phone: [phone] Lab Report: Lipid Profileon 02-06-2016 Cholesterol [Mass/Vol] 248 mg/dL High 200 [facility] Work Phone: [phone] Cholesterol in HDL [Mass/Vol] 61 mg/dL [facility] Work Phone: [phone]) Cholesterol in LDL [Mass/Vol] 165 mg/dL High 0-130 [facility] Work Phone: [phone] Lipoprotein.pre-beta [Mass/Vol] 22 mg/dL 5-40 [facility] Work Phone: [phone] Triglyceride [Mass/Vol] 112 mg/dL [facility] Work Phone: [phone] Lab Report: Liver Profileon 02-06-2016 Albumin [Mass/Vol] 3.4 g/dL 3.4-5.0 [facility] Work Phone: [phone] ALP (Bld) [Catalytic activity/Vol] 102 U/L 45-117 [facility] Work Phone: [phone] ALT [Catalytic activity/Vol] 43 U/L 12-78 [facility] Work Phone: [phone] AST [Catalytic activity/Vol] 22 U/L 15-37 [facility] Work Phone: [phone] Bilirubin [Mass/Vol] 0.30 mg/dL 0.20-1.[address] [facility] Work Phone: [phone] Bilirubin.direct [Mass/Vol] 0.09 mg/dL 0.00-0.30 [facility] Work Phone: [phone] Globulin (S) [Mass/Vol] 3.7 g/dL High 2.3-3.5 [facility] Work Phone: [phone] Protein [Mass/Vol] 7.1 g/dL 6.4-8.2 [facility] Work Phone: [phone] Office Visiton 12-15-2015 Tobacco smoking status NHIS Current every day smoker [facility] Work Phone: [phone] Clinical Lists Update: Prelo resolution agent 11-09-2015 Anion gap [Moles/Vol] 4 mmol/L Low [facility] Work Phone: [phone] Calcium [Mass/Vol] 8.8 mg/dL [facility] Work Phone: [phone] Chloride [Moles/Vol] 105 mmol/L [facility] Work Phone: [phone] CO2 (BldV) [Partial pressure] 28 mmol/L [facility] Work Phone: [phone] Creatinine [Mass/Vol] 1.19 mg/dL [facility] Work Phone: [phone] Glucose [Mass/Vol] 98 mg/dL [facility] Work Phone: [phone] Hematocrit (Bld) [Volume fraction] 42.5 % [facility] Work Phone: [phone] Hemoglobin (Bld) [Mass/Vol] 14.1 g/dL [facility] Work Phone: [phone] Platelets (Bld) [#/Vol] 225 10*3/mm3 [facility] Work Phone: [phone] Potassium [Moles/Vol] 3.9 mmol/L [facility] Work Phone: [phone] RBC (Bld) [#/Vol] 4.78 10*6/uL [facility] Work Phone: [phone] Sodium [Moles/Vol] 137 mmol/L [facility] Work Phone: [phone] Urea nitrogen [Mass/Vol] 17 mg/dL [facility] Work Phone: [phone] Urea nitrogen/Creatinine [Mass ratio] 14.3 mg/mg [facility] Work Phone: [phone] WBC (Bld) [#/Vol] 11.5 10*3/uL High [facility] Work Phone: [phone] Clinical Lists Update: Prelo resolution agent 11-06-2015 Magnesium [Mass/Vol] 2.2 mg/dL [facility] Work Phone: [phone] Office Visit: Establish Care on 07-20-2015 Tobacco smoking status NHIS Never [facility] Work Phone: [phone] Panel Information Influenza Types A,B Direct FA ([facility]) [facility] Work Phone: Vital Signs Date Time Vital Sign Value Performing Clinician Faci lity 11-27-2024 11:01-0400 Body temperature 98.8 [degF] Dr. Jamie Milner DO Work Phone: [facility] 11-27-2024 11:01-0400 Diastolic blood pressure 74 mm[Hg] Dr. Jamie Milner DO Work Phone: [facility] 11-27-2024 11:01-0400 Heart rate 82 /min Dr. Jamie Milner DO Work Phone: [facility] 11-27-2024 11:01-0400 Respiratory rate 16 /min Dr. Jamie Milner DO Work Phone: [facility] 11-27-2024 11:01-0400 SaO2% (BldA) [Mass fraction] 96 % Dr. Jamie Milner DO Work Phone: [facility] 11-27-2024 11:01-0400 Systolic blood pressure 122 mm[Hg] Dr. Jamie Milner DO Work Phone: [facility] 11-27-2024 10:10-0400 Body mass index (BMI) [Ratio] 37.6 kg/m2 Dr. Jamie Milner DO Work Phone: [facility] 11-27-2024 10:10-0400 Body weight 105.[address] Jamie Milner DO Work Phone: [facility] 11-27-2024 08:49-0400 Body height 167.[address] Jamie Milner DO Work Phone: [facility] 08-05-2021 11:05-0400 Diastolic blood pressure 68 mm[Hg] [facility] Work Phone: 08-05-2021 11:05-0400 Heart rate 80 /min [facility] Work Phone: 08-05-2021 11:05-0400 Respiratory rate 16 /min [facility] Work Phone: 08-05-2021 11:05-0400 SaO2% (BldA) [Mass fraction] 98 % [facility] Work Phone: 08-05-2021 11:05-0400 Systolic blood pressure 137 mm[Hg] [facility] Work Phone: 08-05-2021 07:30-0400 Body temperature 98 [degF] [facility] Work Phone: 08-05-2021 07:27-0400 Body height 167.64 cm [facility] Work Phone: 08-05-2021 07:27-0400 Body mass index (BMI) [Ratio] 38.7 kg/m2 [facility] Work Phone: 08-05-2021 07:27-0400 Body weight 108.86 kg [facility] Work Phone: 12-15-2015 09:36-0500 BMI (Body Mass Index) 39.06 kg/m2 [facility] Work Phone: 12-15-2015 09:36-0500 Body weight 109.77 kg [facility] Work Phone: 12-15-2015 09:36-0500 BP Diastolic 62 mm[Hg] Farnaz Jin RN [facility] Work Phone: 12-15-2015 09:36-0500 BP Systolic 104 mm[Hg] Farnaz Jin RN [facility] Work Phone: 12-15-2015 09:36-0500 BSA (Body Surface Area) 2.17 m2 [facility] Work Phone: 12-15-2015 09:36-0500 Height 167.64 cm Farnaz Jin RN [facility] Work Phone: 12-15-2015 09:36-0500 [...] Start: 12-19-2024 End: 12-19-2024 ambulatory Jamie Milner Facility[place] [place] Start: 11-27-2024 End: 11-27-2024 Emergency department patient visit Opal Mi Facility:[facility] Start: 05-22-2024 End: 05-22-[address] Jamie Milner DO Work Phone: [facility] Work Phone: Start: 05-22-2024 End: 05-22-[address] Jamie Milner DO -Laboratory, [facility] Start: 05-22-2024 End: 05-22-2024 ambulatory Jamie Milner Facility:[facility] Start: 05-23-2023 End: 05-23-2023 ambulatory [facility] Work Phone: Start: 05-23-2023 End: 05-23-2023 Patient encounter procedure [facility]-Demi [facility] Start: 01-13-2023 End: 01-13-2023 ambulatory [facility] Work Phone: Start: 01-13-2023 End: 01-13-2023 Patient encounter procedure [facility]-Outpatient [facility] Work Phone: Start: 12-15-2022 End: 12-15-2022 Patient encounter procedure [facility]-Cat Scan, [facility] Work Phone: Start: 12-06-2022 End: 12-06-2022 ambulatory [facility] Work Phone: Start: 12-06-2022 End: 12-06-2022 Patient encounter procedure [facility]LaboratoryDemi [facility] Start: 11-17-2021 End: 11-17-2021 ambulatory [facility] Work Phone: Start: 11-17-2021 End: 11-17-2021 Patient encounter procedure [facility]LaboratoryDemi [facility] Start: 08-05-2021 End: 08-05-2021 Emergency department patient visit [facility]-Emergency Department Start: 05-06-2018 End: 05-08-2018 Patient encounter procedure [facility] Start: 01-20-2017 Ambulatory [facility] [...] h/o appendectomy Influenza Types A,B Direct FA ([facility]) Plan of Treatment Date Care Activity Detail Author Start: 01-04-2025 ambulatory Ambulatory Facility:[facility] Start: 11-27-2024 [facility] Start: 08-05-2021 End: 08-05-2021 [facility] Work Phone: Start: 07-11-2016 End: 07-11-2016 Appointment Appointment [facility] Work Phone: Start: 04-06-2016 End: 02-10-2016 *Hepatic Function Panel *Hepatic Function Panel [facility] Work Phone: Start: 04-06-2016 End: 02-10-2016 Lipid 1996 panel *Lipid Profile CC PCP [facility] Work Phone: Start: 01-07-2016 End: 02-09-2016 *Hepatic Function Panel *Hepatic Function Panel [facility] Work Phone: Start: 01-07-2016 End: 02-09-2016 Lipid 1996 panel *Lipid Profile CC PCP [facility] Work Phone: Start: 12-15-2015 End: 12-15-2015 DENTON CHAWLA [facility] Work Phone: Start: 12-15-2015 End: 12-15-2015 Follow Up Appt 3 months Follow Up Appt 3 months [facility] Work Phone: Start: 07-20-2015 End: 07-20-2015 Ct soft tissue neck w/o contrast material CT Neck Soft Tissue [facility] Work Phone: Start: 07-20-2015 End: 07-21-2015 Physical Therapy General Physical Therapy [facility], [address] [place] [address], [id number] [facility] Work Phone: Start: 07-20-2015 End: 07-20-2015 Radiologic exam knee complete 4/more views X-Ray, Knee [facility] Work Phone: Patient Education [facility] Work Phone: Patient referral [facility] Work Phone: Immunizations Immunization Date Immunization Notes Care Provider Tamera bull 11-07-2015 influenza, injectabl e, quadrivalent, preservative free [facility] 11-07-2015 influenza, seasonal, injectable [facility] Work Phone: Payers Date Payer Category Payer Self-pay [id number] 2024 Unknown [id number] 2014 Unknown [facility], [facility] [id number] Medicare Unknown Unknown [id number] Unknown [id number] Unknown [id number] Unknown [id number] Social History Date Type Detail Facility Start: 08-05-2021 End: 11-24-2021 Tobacco smoking status NHIS Unknown if ever smoked [facility] Start: 11-07-2015 None [facility] Start: 11-07-2015 With Family [facility] Start: 04-12-2019 Cigarettes [facility] Start: 1960 Sex Assigned At Female W [facility] Start: 11-24-2021 End: 11-27-2024 Tobacco smoking status NHIS Smokes tobacco daily (finding) [facility] Start: 05-27-2024 Sex Female (finding) [facility] Sex Female [facility] Mental Status Date Assessment Result Facility 08-05-2021 Cognitive function Level Of Cons ciousness Awake;Alert;Appropriate;Follow s Commands [facility] Work Phone: Discharge summary 11-27-2024 Note Date & Type Note Facility 11-27-2024 Discharge summary [facility] Radiology Diagnostic study note 11-27-2024 Note Date & Type Note Facility 11-27-2024 Radiology Diagnostic study note [facility] Imaging Services [address], [place] [address] HIP, UNI W/ Pelvis 2-3 Views MR#: [id number] Acct: [id number] Name: JAROCHO KELLY Rep #: [id number] : 1960 F 64 From: Carl Morales MD PCP: Dr. Jamie Milner, DO Status: REG ER Study:HIP, UNI W/ Pelvis 2-3 Views Date of Ex am: 11/27/24 Exam# [id number] Ordering Dr: Alex Mi MD PROCEDURE: HIP, [...] of the sacroiliac joints bilaterally. Reading Location: [place] [address] CC: Dr. Opal Mi MD; Dr. Jamie Milner DO ~ Quality Control Inspector Heading: Signed [facility] Discharge summary Note Date & Type Note Facility Discharge summary Note Date/Time November 27, 2024 12:02pm [facility] Medical Records Department [address] [place] [address] Emergency Department Summary 11/27/24 MR#: [id number] Acct: [id number] Name: JAROCHO KELLY Rep #:[id number] : 1960 64 From: Opal Mi MD [...] caring for her sister who lives at [facility]. States that she has had on [...] chills, nausea, vomiting. Denies any back pain. [facility] Medical History (Updated 11/27/24 @ 10:[address] Opal Mi MD) Anxiety Depression Smoker Myocardial infarct Hemorrhoids GERD (gastroesophageal reflux disease) COPD (chronic obstructive pulmonary disease) Depression with anxiety Heart disease Arthritis History of back problems Rectal bleeding Family history of coronary artery disease Obesity Nicotine addiction Hyperlipidemia Hypertension Non-ST elevation AR (NSTEMI) Major depression Home Medications ?Medication ?Instructions [...] of the sacroiliac joints bilaterally. Reading Location: [place] [address] Discharge Plan Triage Chief Complaint: Lower Extremity [...] worsen or new symptoms develop. Print Language: [place] Citizen Disposition Disposition: Home, Self Care Discharge Date/Time: 11/27/24 11:02 What to do if you have Problems For any increased pain, shortness of breath, bleeding, nausea or vomiting, chestpain, or any unexpected problems, contact your Primary Care Provider. Call [facility] ([phone]) or report to the closest Emergency Room. Call 911 if necessary. 11/27/24 1239 <Electronically signed by Opal Mi MD> Cosigner Signature (if applicable): CC: Dr. Jamie Milner DO ~ Signed [facility] Work Phone: Evaluation note Note Date & Type Note Facility Evaluation note No assessment information availa ble [facility] Work Phone: Hospital Discharge instructions Note [...] your symptoms worsen or new symptoms develop. [facility] Work Phone: Reason for referral (narrative) Note Date & Type Note Facility Reason for referral (narrative) No reason for referral information available [facility] Work Phone: Summary Purpose Family History Relationship Condition Age at Onset Recorded Date/T charu mother Diabetes mellitus Unknown Cardiac disease Unknown Hypertension Unknown father Malignant neoplasm Unknown Coronary artery disease Unknown High blood cholesterol Unknown Advance Directives Advance Directive Response Recorded Date/ Time Advance Directives No October 4:17pm Living Will No August 05, 2021 7:40am Power of Field Health Officer No August 05 7:40am Advance Directive Response Recorded Date/ Time Advance Directives No October 3:17pm Living Will No August 05, 2021 6:40am Power of Field Health Officer No August 05 2 6:40am Advance Directive Response Recorded Date/ Time Advance Directives No October 4:17pm Advance Directive Response Recorded Date/ Time Do you have a Healthcare Power of Field Health Officer? No November 27, 2024 9:11am Advance Directives No October 3:17pm Chief Complaint and Reason for Visit Chief Complaint general illness Chief Complaint Encounter for screen ing for malignant neoplasm of SCREENING Chief Complaint Admit Date lower ext November 27, 2024 8 :48am Additional Source Comments INFORMATION SOURCE (unrecogn ized section and content) DATE CREATED AUTHOR 07/31/2017 [facility] DATE CREATED AUTHOR AUTHOR'S ORGANIZ ATION 08/01/2017 [facility] DATE CREATED AUTHOR AUTHOR'S ORGANIZ ATION 05/10/2018 [facility] DATE CREATED AUTHOR AUTHOR'S ORGANIZ ATION 12/19/2024 [facility] Goals (unrecognized section and content) Goals [...] 27, 2024 [facility]. [facility] Active Start: November 27, [...] BE BASED ON THE PRIMARY CLINICAL RECORDS. [employer] provides no warranty or guarantee of the accuracy or completeness of information in this document.
--- NOTE | 2025-01-17 06:22 | EKG12_ITS ---
Test Reason : PRE OP Blood Pressure : */* mmHG Vent. Rate : 76 BPM Atrial Rate : 76 BPM P-R Int : 220 ms QRS Dur : 90 ms QT Int : 386 ms P-R-T Axes : 74 51 60 degrees QTcB Int : 434 ms Sinus rhythm with 1st degree A-V block Otherwise normal ECG Confirmed by AKIN MARKHAM, ANGELLA ([id number]), development editor SHAMA BECKFORD ([id number]) on 01/21/2025 1:19:45 PM Referred By: Jamie Milner Confirmed By: ANGELLA GERARDO MD
--- NOTE | 2025-01-17 06:37 | PCM.HP.STD ---
HPI - General General Date of Admission: 01/17/25 Date of Service: 01/17/25 Chief Complaint: Surveillance colonoscopy HPI Narrative CATERINA KELLY, is a 64 F who presents [ Chief Complaint: Colonoscopy Past medical history of osteoarthritis, obesity, nicotine addiction, hyperlipidemia, hypertension and NSTEMI. Patient referred from primary care provider due to need for screening colonoscopy. Last colonoscopy was [address] Lee and she had a polyp. Over the past 6 months she has been having constipation which is abnormal for her. She is going 2 to 3 days without a bowel movement. She feels very bloated and uncomfortable in between. She feels like it worsens her shortness of breath when she is constipated. She has trialed lactulose as needed but no other prescription medications. She denies blood in her stool or unintentional weight loss. She denies family history of colon cancer. [facility] Medical History Shortness of breath on exertion Wears dentures Wears glasses High cholesterol History of stress test H/O acute myocardial infarction Pes anserine bursitis PAD (peripheral artery disease) CAD (coronary artery disease) Anxiety Depression Smoker Myocardial infarct Hemorrhoids GERD (gastroesophageal reflux disease) COPD (chronic obstructive pulmonary disease) Depression with anxiety Heart disease Arthritis History of back problems Rectal bleeding Family history of coronary artery disease Obesity Nicotine addiction Hyperlipidemia Hypertension Non-ST elevation [place] (NSTEMI) Major depression Home Medications ?Medication ?Instructions ?Recorded ?Last Taken ?Type bupropion HCl 200 mg tablet,12 hr 200 mg PO BID 11/06/15 11/06/15 History sustained-release nitroglycerin 0.4 mg sublingual 0.4 mg sublingual Q5M PRN chest 11/09/15 Unknown Rx tablet pain #1 BOTTLE citalopram 40 mg tablet 40 mg PO QHS 07/06/17 Unknown History losartan 100 1 tab PO DAILY 03/25/19 Unknown History mg-hydrochlorothiazide 25 mg tablet phenazopyridine 200 mg tablet 200 mg PO BID PRN PRN Pain #10 tabs 12/26/19 Unknown Rx pantoprazole 20 mg tablet,delayed 20 mg PO QHS 11/24/21 Unknown History release bisacodyl 5 mg tablet 20 mg (4 x 5 mg) PO ONCE #4 tabs 12/19/24 Unknown Rx polyethylene glycol 3350 17 238 g PO ONCE #238 grams 12/19/24 Unknown Rx gram/dose oral powder ipratropium 20 mcg-albuterol 100 1 puff inhalation 4X/DAY 01/15/25 Unknown History mcg/actuation mist for inhalation (Combivent Respimat) metoprolol tartrate 25 mg tablet 25 mg PO QHS 01/15/25 Unknown History rosuvastatin 20 mg tablet (Crestor) 20 mg PO QHS 01/15/25 Unknown History Allergy/AdvReac Type Severity Reaction Status Date / Time Acrylic Acid and Acrylates AdvReac Intermediate Other Verified 01/15/25 08:48 (steri-strips (acrylate)) Family History Mother Diabetes Heart disease Hypertension Myocardial infarction Father Cancer bladder cancer CAD (coronary artery disease) High cholesterol Brother Cancer pancreatic Surgical History History of cardiac catheterization History of appendectomy History of cholecystectomy H/O: hysterectomy History of total adrenalectomy Social History Smoking Status: Current every day smoker tobacco type: cigarettes alcohol intake: current alcohol intake frequency: holidays/special occasions only substance use type: does not use caffeine: Yes ROS Constitutional Constitutional: Denies fatigue, fever(s), poor appetite, weight gain or weight loss Gastrointestinal Gastrointestinal: Denies belching, bloating, change in bowel habits, change in stool character, chewing difficulty, coffee ground emesis, constipation, cramping, diarrhea, dyspepsia, dysphagia, early satiety, excessive flatus, fecal incontinence, heartburn, hematemesis, hematochezia, hemorrhoids, loose stools, melena, nausea, odynophagia, rectal bleeding, tenesmus, vomiting or weight changes Physical Exam Const alert, oriented x3, no apparent distress and healthy appearing General Appearance: cooperative GI normal to inspection, nondistended, normoactive bowel sounds, soft to palpation, non-tender and non-distended Percussion: normal to percussion Rectal Exam: deferred Assessment & Plan Assessment/Plan (1) Screening for colon cancer: PLAN: Assessment and Plan Assessment and Plan (1) Constipation: Status: Acute (2) Screening for colon cancer: Status: Acute Plan: Caterina is a 64-year-old female patient with past medical history of obesity, hypertension, hyperlipidemia, NSTEMI, osteoarthritis and status post hysterectomy here today for screening colonoscopy. Patient's last colonoscopy was [address] Lee which demonstrated 1 polyp. Patient endorses recent constipation over the past 6 months. She is having bowel movement every 2 to 3 days which is abnormal for her. PCP did prescribe lactulose and she is taking that as needed. She denies family history of colon cancer, blood in her stool or unintentional weight loss. Recommended starting Linzess 72 mcg daily prior to her colonoscopy to ensure there is adequate bowel preparation. She was scheduled for colonoscopy today. - Colonoscopy - Trial Linzess 72 mcg daily - Follow-up as needed Note: Portions of this note may have been selectively carried forward from previous documentation to ensure continuity and accuracy of the clinical record. All imported information has been reviewed and updated as necessary to reflect the current patient status, findings, and clinical decision-making for this encounter. [employer] speech recognition buttonholer software was used to create portions of this document. Sound alike and misspelled words, as well as other buttonholer errors may be contained in the documentation. Medications: New polyethylene glycol 3350 colonoscopy prep 238 grams PO ONCE 238 grams 0RF bisacodyl colonoscopy prep 20 mg (4 x 5 mg) PO ONCE 4 tabs 0RF ]
[2025-01-17] MEDS: Lactated Ringers 1,000 ML 15 ML IV (06:39)
--- NOTE | 2025-01-17 06:56 | PCM.PRE.AN2 ---
ASA Classification* ASA Classification ASA Classification: 3 Assessment & Plan Anesthesia* Anesthesia Assessment Anesthesia Assessment: Discussed sedation and/or anesthesia options, risks, benefits, and alternatives with patient/parents/legal guardian/POA. Questions invited. The patient/parents/legal guardian/POA seems to understand and agrees to proceed with anesthesia plan. Reviewed the physical assessment, medical history, allergy history and patient home medications list prior to surgery/procedure/anesthetic and documented any changes. Performed airway and anesthesia risk assessments. Anesthesia Type Anesthesia Type: MAC Anesthesia Focused Assessment* Temperature: 96.9 F Pulse Rate: 89 Blood Pressure: 147/78 Respiratory Rate: 16 Pulse Ox: 98 Airway Assessment Mouth opens: >3 cm Mallampati Score: II Labs Anesthesia Preop lab: CBC WBC, (4.4-11.0) 9.2 K/mm3 05/22/24, 10:52 RBC, (4.2-5.4) 4.78 M/mm3 05/22/24, 10:52 Hgb, (12.0-15.0) 14.7 g/dL 05/22/24, 10:52 Hct, (37-47) 42.7 % 05/22/24, 10:52 Plt Count, (150-450) 285 K/mm3 05/22/24, 10:52 CHEMISTRY Potassium, (3.3-5.1) 4.2 mmol/L 05/22/24, 10:52 Sodium, (133-145) 139 mmol/L 05/22/24, 10:52 Magnesium, (1.8-2.4) 2.2 mg/dL 11/06/15, 14:06 BUN, (4-19) 21 mg/dL H 05/22/24, 10:52 Creatinine, (0.70-1.20) 1.43 mg/dL H 05/22/24, 10:52 Glucose, (70-99) 96 mg/dL 05/22/24, 10:52 TSH, (0.300-4.200) 1.490 uIU/mL 05/22/24, 10:52 COAG PT, (11.7-14.9) 13.2 SECONDS 11/09/15, 02:22 Pre-Assessment Diagnosis/Proposed Procedure Planned Operative Procedure(s): COLONOSCOPY Anesthesia History Anesthesia History - hub associate: Anesthesia History - hub associate Hx Hospitalization No 01/15/25 08:51 Any Problems With Anesthesia Yes: LOW BP 01/15/25 08:51 Cholinesterase deficiency No 01/15/25 08:51 You/Your Family Experience No 01/15/25 08:51 fever (hyperthermia) with Relationship Recent Exposure to Contagious No 01/17/25 06:33 Disease Does patient have nerve No 01/15/25 08:51 stimulator Patient instructed to have device shut off --Does patient have Pacemaker No 01/17/25 06:33 or ICD? When Was Last Pacemaker Check QUESTION #4 FULL TEXT: You/Your Family Experience fever (hyperthermia) with Anesthesia Last Oral Intake Last Oral intake: Last Oral Intake NPO since 03:15 01/17/25 06:33 Meds taken in AM with sips of No 01/17/25 06:33 water? Meds patient instructed to take am of surgery PONV PONV - hub associate: PONV - hub associate Female Yes 01/15/25 08:51 HX of Motion Sickness No 01/15/25 08:51 HX of N/V After Surgery No 01/15/25 08:51 Non-Smoker Yes 01/15/25 08:51 Duration of Surgery greater No 01/15/25 08:51 than 60 minutes Number of Risk Factors 2 01/15/25 08:51 PONV Score Moderate Risk 01/15/25 08:51 Height & Weight Height & Weight: Anesthesia: Height & Weight Height 5 ft 6 in 01/17/25 06:33 Weight: 107 kg 01/17/25 06:33 Body Mass Index (BMI) 38.0 01/17/25 06:33 Respiratory Assessment Respiratory Assessment - hub associate: Respiratory Tract Infection Hx - hub associate Hx Respiratory Tract Infection No 01/15/25 08:51 STOP Sleep Apnea STOP Sleep Apnea - hub associate: STOP Sleep Apnea - hub associate Hx Hypertension Yes: CONTROLLED WITH MEDS 01/15/25 08:51 Hx Sleep Apnea No 01/15/25 08:51 CPAP BIPAP Do you snore loudly (louder No 01/15/25 08:51 than talking or can be heard Do you often feel tired/ No 01/15/25 08:51 fatigued/ sleepy during daytime? Has anyone observed you stop No 01/15/25 08:51 breathing during sleep? STOP Results Negative 01/15/25 08:51 QUESTION #5 FULL TEXT : Do you snore loudly (louder than talking or can be heard through closed doors)? 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 Specify any problems Hx of Preganancy in last 3 No 01/15/25 08:51 Months Nurse Filling Out Transfusion [email or web address] 01/15/25 08:51 & Questions: Date: 01/15/25 01/15/25 08:51 Time: 08:53 01/15/25 08:51 Patient unable to answer at this time (ie. confused, unrespo /Reproduction History /Reproductive History - hub associate: /Reproductive Hx- hub associate Hx Now Gestational Age (in weeks): EDC: Hx Hx Para Hx Section SAB Does the father of the baby or his family experience fever w Father of the baby Malignant Hypertension history comment Active Medications Active Medications: Current Medications Generic Name Dose Route Start Last Admin Trade Name Freq PRN Reason Stop Dose Admin Lactated Ringer's 1,000 mls @ 15 mls/hr 01/17/25 06:45 01/17/25 06:39 IV 15 mls/hr .Q48H ANNALISE Administration PFSH Medical History Shortness of breath on exertion Wears dentures Wears glasses High cholesterol History of stress test H/O acute myocardial infarction Pes anserine bursitis PAD (peripheral artery disease) CAD (coronary artery disease) Anxiety Depression Smoker Myocardial infarct Hemorrhoids GERD (gastroesophageal reflux disease) COPD (chronic obstructive pulmonary disease) Depression with anxiety Heart disease Arthritis History of back problems Rectal bleeding Family history of coronary artery disease Obesity Nicotine addiction Hyperlipidemia Hypertension Non-ST elevation AR (NSTEMI) Major depression Home Medications ?Medication ?Instructions ?Recorded ?Last Taken ?Type bupropion HCl 200 mg tablet,12 hr 200 mg PO BID 11/06/15 11/06/15 History sustained-release nitroglycerin 0.4 mg sublingual 0.4 mg sublingual Q5M PRN chest 11/09/15 Unknown Rx tablet pain #1 BOTTLE citalopram 40 mg tablet 40 mg PO QHS 07/06/17 Unknown History losartan 100 1 tab PO DAILY 03/25/19 Unknown History mg-hydrochlorothiazide 25 mg tablet phenazopyridine 200 mg tablet 200 mg PO BID PRN PRN Pain #10 tabs 12/26/19 Unknown Rx pantoprazole 20 mg tablet,delayed 20 mg PO QHS 11/24/21 Unknown History release bisacodyl 5 mg tablet 20 mg (4 x 5 mg) PO ONCE #4 tabs 12/19/24 Unknown Rx polyethylene glycol 3350 17 238 g PO ONCE #238 grams 12/19/24 Unknown Rx gram/dose oral powder ipratropium 20 mcg-albuterol 100 1 puff inhalation 4X/DAY 01/15/25 Unknown History mcg/actuation mist for inhalation (Combivent Respimat) metoprolol tartrate 25 mg tablet 25 mg PO QHS 01/15/25 Unknown History rosuvastatin 20 mg tablet (Crestor) 20 mg PO QHS 01/15/25 Unknown History Allergy/AdvReac Type Severity Reaction Status Date / Time Acrylic Acid and Acrylates AdvReac Intermediate Other Verified 01/15/25 08:48 (steri-strips (acrylate)) Family History Mother Diabetes Heart disease Hypertension Myocardial infarction Father Cancer bladder cancer CAD (coronary artery disease) High cholesterol Brother Cancer pancreatic Surgical History History of cardiac catheterization History of appendectomy History of cholecystectomy H/O: hysterectomy History of total adrenalectomy Social History Smoking Status: Current every day smoker tobacco type: cigarettes alcohol intake: current alcohol intake frequency: holidays/special occasions only substance use type: does not use caffeine: Yes Review of Systems (Anesthesia) ROS Narrative System reviewed and no additional complaints, except as documented.
--- NOTE | 2025-01-17 07:00 | COLBX_PTH ---
PATIENT: JAROCHO KELLY LOC: EN U#:[id number] AGE/SX: 64/F ROOM: RE01/17/[address]: Dr. Placido Rg DO : 1960 BED: DIS: 01/17/2025 SPEC #: [id number] RECD: 01/17/25 13:04 STATUS: CHASITY ALONDRA #: [id number] MIREYA: 01/17/25 07:[address]: Placido Rg DEPT: SURGICAL PATHOLOGY RECD BY: Jayesh Frank ENTERED: 01/17/25 14:21 SP TYPE: COLON BX ANNE MARIE DR: Dr. Jamie Milner DO Tissues: A - COLON BIOPSY B - Sigmoid colon biopsy Procedures: Surgery Specimen Level IV HEADER OPERATION: Colonoscopy with biopsies PRE-OP DIAGNOSIS: Surveillance colonoscopy TISSUE SUBMITTED: A- Hepatic flexure biopsy, B- Sigmoid polyp biopsy MICROSCOPIC DIAGNOSIS A. Colon, hepatic flexure, biopsy: - Fragments of tubular adenoma. B. Colon, sigmoid, polyp, biopsy: - Polypoid colonic mucosa with small mucosal lymphoid aggregates. MICROSCOPIC DESCRIPTION Slides are reviewed. GROSS DESCRIPTION A. Received in fixative is one container labeled with the patient's name and designated Hepatic flexure biopsy. The specimen consists of three irregular fragments of caputo tissue that measure 0.3 to 0.5cm. The specimen is totally submitted in one cassette. B. Received in fixative is one container labeled with the patient's name and designated Sigmoid polyp biopsy. The specimen consists of one irregular fragment of caputo tissue that measures 0.2 cm. The specimen is totally submitted in one cassette. [place] 01/17/2025 CPT:27687n3
--- NOTE | 2025-01-17 07:30 | OP.COLON_ITS ---
Patient Name: Caterina Curry Procedure Date: 01/17/2025 7:03 AM Date of : 1960 Age: 64 Procedure: Colonoscopy Indications: High risk colon cancer surveillance: Personal history of colonic polyps Providers: Placido Rg DO Referring MD: Jamie Milner Medicines: Monitored Anesthesia Care Patient Profile: This is a 64 year old female. Refer to note in patient chart for documentation of history and physical. Last Colonoscopy: 5 years ago. Complications: No immediate complications. Procedure: Pre-Anesthesia Assessment: - Prior to the procedure, a History and Physical was performed, and patient medications and allergies were reviewed. The patient is competent. The risks and benefits of the procedure and the sedation options and risks were discussed with the patient. All questions were answered and informed consent was obtained. Patient identification and proposed procedure were verified by the physician in the pre-procedure area. Mental Status Examination: alert and oriented. Airway Examination: normal oropharyngeal airway and neck mobility. Respiratory Examination: clear to auscultation. CV Examination: normal. Prophylactic Antibiotics: The patient does not require prophylactic antibiotics. Prior Anticoagulants: The patient has taken no anticoagulant or antiplatelet agents. ASA Grade Assessment: II - A patient with mild systemic disease. After reviewing the risks and benefits, the patient was deemed in satisfactory condition to undergo the procedure. The anesthesia plan was to use monitored anesthesia care (MAC). Immediately prior to administration of medications, the patient was re-assessed for adequacy to receive sedatives. The heart rate, respiratory rate, oxygen saturations, blood pressure, adequacy of pulmonary ventilation, and response to care were monitored throughout the procedure. The physical status of the patient was re-assessed after the procedure. After I obtained informed consent, the scope was passed under direct vision. Throughout the procedure, the patient's blood pressure, pulse, and oxygen saturations were monitored continuously. The Colonoscope was introduced through the anus and advanced to the cecum, identified by appendiceal orifice and ileocecal valve. The colonoscopy was performed without difficulty. The patient tolerated the procedure well. The quality of the bowel preparation was adequate. The ileocecal valve, appendiceal orifice, and rectum were photographed. Scope In: 7:12:17 AM Scope Withdrawal Time 0 hours 9 minutes 18 seconds Scope Out: 7:24:43 AM Total Procedure Duration Time 0 hours 12 minutes 26 seconds Findings: The perianal and digital rectal examinations were normal. Multiple small-mouthed diverticula were found in the recto-sigmoid colon and sigmoid colon. There was a large lipoma, at the hepatic flexure. Two sessile polyps were found in the sigmoid colon and hepatic flexure. The polyps were 5 mm in size. These polyps were removed with a jumbo cold forceps. Resection and retrieval were complete. Verification of patient identification for the specimen was done. Estimated blood loss was minimal. Non-bleeding external and internal hemorrhoids were found during retroflexion. The hemorrhoids were Grade II (internal hemorrhoids that prolapse but reduce spontaneously). The exam was otherwise without abnormality on direct and retroflexion views. Impression: - Diverticulosis in the recto-sigmoid colon and in the sigmoid colon. - Large lipoma at the hepatic flexure. - Two 5 mm polyps in the sigmoid colon and at the hepatic flexure, removed with a jumbo cold forceps. Resected and retrieved. - Non-bleeding external and internal hemorrhoids. - The examination was otherwise normal on direct and retroflexion views. Recommendation: - Discharge patient to home. - Resume previous diet. - Continue present medications. - Await pathology results. - Repeat colonoscopy in 5 years for surveillance. Procedure Code(s): --- Professional --- 40487, Colonoscopy, flexible; with biopsy, single or multiple CPT copyright 2021 [employer]. All rights reserved. The codes documented in this report are preliminary and upon hog tender review may be revised to meet current compliance requirements. Placido Rg DO 01/17/2025 7:30:38 AM This report has been signed electronically. Number of Addenda: 0 Note Initiated On: 01/17/2025 7:03 AM
--- NOTE | 2025-01-17 07:31 | OP.PROVAT_ITS ---
01/17/2025 Jamie Milner [address] [place] [place] [address] Re : Colonoscopy procedure for Caterina Curry Dear Dr. Milner This procedure was performed on Friday, January 17, 2025. My impressions and recommendations are as follows: Impressions : - Diverticulosis in the recto-sigmoid colon and in the sigmoid colon. - Large lipoma at the hepatic flexure. - Two 5 mm polyps in the sigmoid colon and at the hepatic flexure, removed with a jumbo cold forceps. Resected and retrieved. - Non-bleeding external and internal hemorrhoids. - The examination was otherwise normal on direct and retroflexion views. Recommendations : - Discharge patient to home. - Resume previous diet. - Continue present medications. - Await pathology results. - Repeat colonoscopy in 5 years for surveillance. My findings are described in the full procedure note, which is enclosed. If I can be of further assistance, please feel free to contact me at . Sincerely, Placido Rg, 01/17/2025 7:30:38 AM This report has been signed electronically.
--- NOTE | 2025-01-17 07:32 | PCM.POST.ANE ---
Anesthesia: Postop Eval I Current Vital Signs Temperature: 97 F Pulse Rate: 64 Blood Pressure: 90/50 Respiratory Rate: 16 Pulse Ox: 97 Oxygen Delivery Method: Room Air Assessment Airway patent: Yes Spontaneous unlabored respirations: Yes Mental status: Asleep nausea: No Vomiting: No Anesthesia Complication: No Fluid Hydration Crystalloid volume administer (ml): 500 Total IV fluid infused: 500 Progress Note Anesthesia document: Postop Eval 1 completed: Yes
--- NOTE | 2025-01-17 07:44 | PCM.POSTANE2 ---
Anesthesia Postop Eval I Sum Postop Eval Completion status Anesthesia document: Postop Eval 1 completed: Yes Anesthesia Postop Eval I Summary Anesthesia Postop Eval I Summary: Anesthesia Postop Eval I: Assessment Summary Airway patent Yes 01/17/25 07:33 [email or web address] Spontaneous unlabored Yes 01/17/25 07:33 [email or web address] respirations Mental status Asleep 01/17/25 07:33 [email or web address] nausea No 01/17/25 07:33 [email or web address] Vomiting No 01/17/25 07:33 [email or web address] Anesthesia Postop Eval I: Fluid Summary Crystalloid volume administer 500 01/17/25 07:33 [email or web address] (ml) Colloids volume administered ( ml) Blood Product volume administered (ml) Total IV fluid infused 500 01/17/25 07:33 [email or web address] Anesthesia Postop Eval I: Summary Notes Anesthesia Complication No 01/17/25 07:33 [email or web address] Anesthesia Complication Comment: Post-operative progress note Anesthesia: Postop Eval II Evaluation Mental status: Awake Pain Level: 0 nausea: No Vomiting: No
== END 2025-01-17 08:09 | disposition home or self-care (01) ==
LOC: EN 05:55 → AC 05:56
PROVIDERS: PCP Family Medicine; Referring Provider Family Medicine; Visit Provider Internal Medicine Gastroenterology
PROC: 0DJD8ZZ Inspection of Lower Intestinal Tract, Via Natural or Artificial Opening Endoscopic (ICD-10-PCS; CPT 45378; principal; 2025-01-17 06:55)
DX: Z12.11 Encounter for screening for malignant neoplasm of colon (principal); J44.9 Chronic obstructive pulmonary disease, unspecified; K57.30 Diverticulosis of large intestine without perforation or abscess without bleeding; E78.00 Pure hypercholesterolemia, unspecified; Z86.0100 Personal history of colon polyps, unspecified; I10 Essential (primary) hypertension; K21.9 Gastro-esophageal reflux disease without esophagitis; E66.9 Obesity, unspecified; K63.5 Polyp of colon; I25.10 Atherosclerotic heart disease of native coronary artery without angina pectoris; I25.2 Old myocardial infarction; E78.5 Hyperlipidemia, unspecified; Z79.51 Long term (current) use of inhaled steroids; Z79.899 Other long term (current) drug therapy; F17.210 Nicotine dependence, cigarettes, uncomplicated; D17.5 Benign lipomatous neoplasm of intra-abdominal organs; K64.1 Second degree hemorrhoids; K64.4 Residual hemorrhoidal skin tags; D12.3 Benign neoplasm of transverse colon
CPT/HCPCS: 45380; 88305; 93005; J2405